=== PATIENT | female | born 1995 | race Caucasian/White ===

== ENCOUNTER 2016-11-21 11:48 | Outpatient (CLI) | payer MEDICAID | END 2016-11-21 11:49 | disposition home or self-care (01) | DX: Z34.02 Encounter for supervision of normal first pregnancy, second trimester (principal); Z36 Encounter for antenatal screening of mother ==

== ENCOUNTER 2016-11-27 14:39 | Outpatient (CLI) | payer MEDICAID | END 2016-11-27 14:40 | disposition home or self-care (01) | DX: Z34.02 Encounter for supervision of normal first pregnancy, second trimester (principal) ==

== ENCOUNTER 2016-12-31 17:43 | Observation (INO) | payer MEDICAID ==
[2016-12-31] MEDS ORDERED: TERBUTALINE 1 MG/ML VIAL SUBQ ONE (20:42)
[2016-12-31] MEDS ORDERED: SODIUM CHLORIDE FLUSH 0.9% 10 ML SYRINGE IVP ONE (20:56)
[2016-12-31] MEDS ORDERED: NIFEdipine 10 MG CAPSULE PO ONE (21:29)
[2016-12-31] MEDS ORDERED: NIFEdipine 10 MG CAPSULE PO SCH (21:30)
[2016-12-31] MEDS ORDERED: TERBUTALINE 1 MG/ML VIAL SUBQ SCH (23:00)
[2016-12-31] MEDS ORDERED: LACTATED RINGERS 1,000 ML IV SCH (23:00)
== END 2016-12-31 23:10 | disposition home or self-care (01) ==
DX: O47.03 False labor before 37 completed weeks of gestation, third trimester (principal); Z3A.32 32 weeks gestation of pregnancy; O99.89 Other specified diseases and conditions complicating pregnancy, childbirth and the puerperium; R10.811 Right upper quadrant abdominal tenderness; H53.8 Other visual disturbances; R03.0 Elevated blood-pressure reading, without diagnosis of hypertension; R51 Headache
CPT/HCPCS: 36415; 81001; 82570; 82731; 83615; 84156; 84450; 84550; 85025; 87086; 96372; 99213; A9270

== ENCOUNTER 2017-01-02 16:38 | Outpatient (CLI) | payer MEDICAID | END 2017-01-02 17:45 | disposition home or self-care (01) | DX: O23.43 Unspecified infection of urinary tract in pregnancy, third trimester (principal); Z3A.33 33 weeks gestation of pregnancy ==

== ENCOUNTER 2017-01-03 10:53 | Outpatient (CLI) | payer MEDICAID | END 2017-01-03 10:54 | DX: R30.0 Dysuria (principal) ==

== ENCOUNTER 2017-01-31 09:25 | Outpatient (CLI) | payer MEDICAID | END 2017-01-31 09:26 | DX: Z36 Encounter for antenatal screening of mother (principal) ==

== ENCOUNTER 2017-02-09 18:08 | Outpatient (CLI) | payer MEDICAID ==
[2017-02-13] MEDS ORDERED: SODIUM CHLORIDE FLUSH 0.9% 10 ML SYRINGE IVP PRN (15:56)
[2017-02-13] MEDS ORDERED: LACTATED RINGERS 1,000 ML IV SCH (16:00)
[2017-02-13] MEDS ORDERED: DINOPROSTONE 10 MG SUPP VG SCH (16:30)
== END 2017-02-09 21:15 | disposition home or self-care (01) ==
DX: Z34.83 Encounter for supervision of other normal pregnancy, third trimester (principal)

== ENCOUNTER 2017-02-13 16:16 | Observation (INO) | payer MEDICAID ==
[2017-02-13] MEDS ORDERED: DINOPROSTONE 10 MG SUPP VG SCH (16:44)
[2017-02-13] MEDS ORDERED: ZOLPIDEM 5 MG TABLET PO PRN (17:37)
[2017-02-13] MEDS ORDERED: SODIUM CHLORIDE FLUSH 0.9% 10 ML SYRINGE IVP PRN (17:41)
[2017-02-13] MEDS ORDERED: LACTATED RINGERS 1,000 ML IV SCH (18:00)
[2017-02-13] MEDS ORDERED: SODIUM CHLORIDE FLUSH 0.9% 10 ML SYRINGE IVP SCH (22:00)
== END 2017-02-14 08:10 | disposition home or self-care (01) ==
PROC: 3E0P7GC Introduction of Other Therapeutic Substance into Female Reproductive, Via Natural or Artificial Opening (ICD-10-PCS; principal; 2017-02-13)
DX: O13.3 Gestational [pregnancy-induced] hypertension without significant proteinuria, third trimester (principal); O36.8130 Decreased fetal movements, third trimester, not applicable or unspecified; Z3A.38 38 weeks gestation of pregnancy; Z87.891 Personal history of nicotine dependence
CPT/HCPCS: 59025; 59200; 82565; 83615; 84450; 84550; 85025; 87797; A9270; G0378

== ENCOUNTER 2017-02-14 15:29 | Outpatient (CLI) | payer MEDICAID | END 2017-02-14 17:00 | disposition home or self-care (01) | DX: O36.8130 Decreased fetal movements, third trimester, not applicable or unspecified (principal); O13.3 Gestational [pregnancy-induced] hypertension without significant proteinuria, third trimester; Z3A.38 38 weeks gestation of pregnancy ==

== ENCOUNTER 2017-02-16 10:01 | Outpatient (CLI) | payer MEDICAID | END 2017-02-16 11:25 | disposition home or self-care (01) | DX: O13.3 Gestational [pregnancy-induced] hypertension without significant proteinuria, third trimester (principal); Z3A.39 39 weeks gestation of pregnancy ==

== ENCOUNTER 2017-02-17 15:14 | Outpatient (CLI) | payer MEDICAID | END 2017-02-17 16:45 | disposition home or self-care (01) | DX: O98.813 Other maternal infectious and parasitic diseases complicating pregnancy, third trimester (principal); O47.1 False labor at or after 37 completed weeks of gestation; Z3A.39 39 weeks gestation of pregnancy; B37.9 Candidiasis, unspecified ==

== ENCOUNTER 2017-02-18 10:29 | Inpatient (IN) | payer MEDICAID ==
[2017-02-18] MEDS ORDERED: SODIUM CHLORIDE FLUSH 0.9% 10 ML SYRINGE IVP PRN (14:06)
[2017-02-18] MEDS ORDERED: fentaNYL 100 MCG/2 ML VIAL ONE (14:32)
[2017-02-18] MEDS ORDERED: fent/BUPIV 2 MCG/0.125% 250 ML EP ONE (14:33)
[2017-02-18] MEDS: LACTATED RINGERS 1,000 ML IV SCH ×2 (14:42→17:10)
[2017-02-18] MEDS ORDERED: ACETAMINOPHEN 325 MG TABLET PO SCH (15:00)
[2017-02-18] MEDS ORDERED: MEASLES,MUMPS & RUBELLA VACC 0.5 ML VIAL SUBQ ONE (15:29)
[2017-02-18] MEDS ORDERED: fentaNYL 100 MCG/2 ML VIAL IVP ONE (15:35)
[2017-02-18] MEDS ORDERED: ROPIVACAINE 0.5% PF 20 ML AMPULE EP ONE (15:35)
[2017-02-18] MEDS ORDERED: NALBUPHINE 20 MG/ML AMP IVP PRN (15:39)
[2017-02-18] MEDS ORDERED: diphenhydrAMINE INJ 50 MG/ML VIAL IVP PRN (15:39)
[2017-02-18] MEDS ORDERED: NALOXONE 0.4 MG/ML VIAL IVP PRN (15:39)
[2017-02-18] MEDS ORDERED: ePHEDrine 50 MG/ML AMP IVP PRN (15:39)
[2017-02-18] MEDS ORDERED: LACTATED RINGERS 500 ML IV ONE (15:39)
[2017-02-18] MEDS ORDERED: ONDANSETRON 4 MG/2 ML VIAL IVP PRN (15:39)
[2017-02-18] MEDS ORDERED: METOCLOPRAMIDE 10 MG/2 ML VIAL IVP PRN (15:39)
[2017-02-18] MEDS ORDERED: fent/BUPIV 2 MCG/0.125% 250 ML EP PRN (15:39)
[2017-02-18] MEDS ORDERED: OXYTOCIN/LACTATED RINGERS 250 ML IV ONE ×2 (17:27→19:09)
[2017-02-18] MEDS ORDERED: LIDOCAINE 1% 50 ML MDV ONE (17:27)
[2017-02-18] MEDS ORDERED: miSOPROStol 100 MCG TABLET ONE (18:13)
[2017-02-18] MEDS ORDERED: OXYTOCIN/LACTATED RINGERS 250 ML IV SCH ×2 (18:25→19:33)
[2017-02-18] MEDS ORDERED: HYDROcod/ACETAM 5/325 MG TABLET PO PRN (19:10)
[2017-02-18] MEDS ORDERED: WITCH HAZEL/GLYCERIN 1 EACH MED..PAD TOP PRN (19:10)
[2017-02-18] MEDS ORDERED: HYDROCORTISONE/PRAMOXINE 10 GM PR PRN (19:10)
[2017-02-18] MEDS: CELECOXIB 100 MG CAPSULE PO SCH (20:39)
[2017-02-18] MEDS: DOCUSATE SODIUM 100 MG CAPSULE PO SCH (20:46)
[2017-02-18] MEDS ORDERED: SODIUM CHLORIDE FLUSH 0.9% 10 ML SYRINGE IVP SCH (22:00)
[2017-02-19] MEDS: DOCUSATE SODIUM 100 MG CAPSULE PO SCH (10:52)
[2017-02-19] MEDS: CELECOXIB 100 MG CAPSULE PO SCH (10:52)
== END 2017-02-20 10:25 | disposition home or self-care (01) | DRG 982 ==
PROC: 10E0XZZ Delivery of Products of Conception, External Approach (ICD-10-PCS; principal; 2017-02-18)
PROC: 0HBAXZZ Excision of Inguinal Skin, External Approach (ICD-10-PCS; 2017-02-18)
PROC: 0KQM0ZZ Repair Perineum Muscle, Open Approach (ICD-10-PCS; 2017-02-18)
DX: O99.344 Other mental disorders complicating childbirth (principal); O72.1 Other immediate postpartum hemorrhage; F41.9 Anxiety disorder, unspecified; O69.81X0 Labor and delivery complicated by cord around neck, without compression, not applicable or unspecified; O36.5930 Maternal care for other known or suspected poor fetal growth, third trimester, not applicable or unspecified; O70.1 Second degree perineal laceration during delivery; D22.5 Melanocytic nevi of trunk; Z87.891 Personal history of nicotine dependence; Z86.19 Personal history of other infectious and parasitic diseases; Z3A.39 39 weeks gestation of pregnancy; Z37.0 Single live birth; Z98.890 Other specified postprocedural states

== ENCOUNTER 2017-07-09 10:17 | Outpatient (CLI) | payer MEDICAID | END 2017-07-09 10:18 | disposition home or self-care (01) | LOC: LAB.R 10:17 | PROVIDERS: ATTEND Registered Nurse | DX: Z30.431 Encounter for routine checking of intrauterine contraceptive device (principal) | CPT/HCPCS: 87491; 87591 ==

== ENCOUNTER 2017-11-12 08:00 | Outpatient (CLI) | payer OTHER, MEDICAID | END 2017-11-12 08:01 | disposition home or self-care (01) | LOC: LAB.WCP 08:00 | PROVIDERS: ATTEND Family Medicine | DX: N39.0 Urinary tract infection, site not specified (principal) | CPT/HCPCS: 87086 ==

== ENCOUNTER 2018-03-01 08:43 | Outpatient (CLI) | payer MEDICAID ==
[2018-03-01 13:00] LABS: BASOPHILS % (AUTO) 0.3 %; EOSINOPHILS # (AUTO) 0.1 10^3/uL (0.0-0.7); EOSINOPHILS % (AUTO) 2.2 %; HGB - HEMOGLOBIN 14.1 g/dL (12.0-16.0); LYMPHOCYTES # (AUTO) 1.4 10^3/uL (1.5-3.5); LYMPHOCYTES % (AUTO) 33.7 %; MEAN CORPUSCULAR HEMOGLOBIN 31.2 pg (27.0-31.0); MEAN CORPUSCULAR HGB CONC 34.2 g/dL (32.0-36.0); MEAN CORPUSCULAR VOLUME 91.3 fL (81.0-99.0); MEAN PLATELET VOLUME 8.1 fL (7.9-10.8); MONOCYTES # (AUTO) 0.5 10^3/uL (0.0-1.0); MONOCYTES % (AUTO) 11.4 %; NEUTROPHILS # (AUTO) 2.2 10^3/uL (1.5-6.6); NEUTROPHILS % (AUTO) 52.4 %; PLT - PLATELET COUNT 256 10^3/uL (130-450); RED BLOOD COUNT 4.52 10^6/uL (4.20-5.40); RED CELL DISTRIBUTION WIDTH 13.3 % (12.0-15.0); WHITE BLOOD COUNT 4.2 x10^3/uL (4.8-10.8)
[2018-03-01 13:30] LABS: ALBUMIN 3.9 g/dL (3.2-5.5); ALBUMIN/GLOBULIN RATIO 1.2 (1.0-2.2); BILIRUBIN,TOTAL 0.8 mg/dL (0.2-1.0); CALCIUM 8.6 mg/dL (8.5-10.3); CREATININE 0.6 mg/dL (0.4-1.0); TOTAL PROTEIN 7.2 g/dL (6.7-8.2)
== END 2018-03-01 08:44 | disposition home or self-care (01) ==
LOC: LAB.WCP 08:43
PROVIDERS: ATTEND Family Medicine
DX: K52.9 Noninfective gastroenteritis and colitis, unspecified (principal)
CPT/HCPCS: 36415; 80053; 85025

== ENCOUNTER 2018-03-01 09:00 | Outpatient (CLI) | payer MEDICAID | END 2018-03-01 09:01 | disposition home or self-care (01) | LOC: LAB.R 09:00 | PROVIDERS: ATTEND Family Medicine | DX: K52.9 Noninfective gastroenteritis and colitis, unspecified (principal) | CPT/HCPCS: 36415; 80053; 85025; 87015; 87045; 87046; 87177; 87209; 87272; 87329 ==

== ENCOUNTER 2018-05-13 05:04 | Emergency (ER) | payer MEDICAID ==
[2018-05-13] MEDS ORDERED: SODIUM CHLORIDE 0.9% 1,000 ML IV ONE (05:18)
[2018-05-13] MEDS ORDERED: ONDANSETRON 4 MG/2 ML VIAL IVP STA (05:35)
--- NOTE | 2018-05-13 05:38 | ED Physician Documentation ---
History of Present Illness - Stated complaint Stated Complaint: DIZZINESS,NAUSEA - Chief complaint Chief Complaint: Neuro - History obtained from History obtained from: Patient - Additonal information Additional information: 22-year-old female presents the emergency department with dizziness, syncope, nausea and right upper quadrant pain. The patient awoke this morning around midnight feeling very dizzy and nauseated and when walking to the bathroom had a syncopal episode. The patient denies chest pain before or after the event. The patient denies fevers, dyspnea on exertion. Now currently the patient has right upper quadrant pain which started 1 hour ago. There is no radiation of the pain. No triggering factors. No relieving factors. No other associated symptoms. Review of Systems Constitutional: reports: Chills. denies: Fever, Fatigue Eyes: denies: Discharge Ears: denies: Ear pain Nose: denies: Congestion Throat: denies: Sore throat Cardiac: denies: Chest pain / pressure, Palpitations, Pedal edema Respiratory: denies: Dyspnea GI: reports: Abdominal Pain, Nausea : denies: Dysuria Musculoskeletal: denies: Neck pain Neurologic: reports: Generalized weakness, Syncope. 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 - Present Medications Home Medications: Ambulatory Orders Medication Instructions Recorded Confirmed Sertraline [Zoloft] 125 mg PO DAILY 05/13/18 05/13/18 buPROPion [Wellbutrin Xl] 05/13/18 - Allergies Allergies/Adverse Reactions: Allergies Allergy/AdvReac Type Severity Reaction Status Date / Time ondansetron [From Zofran] Allergy Emesis Verified 05/13/18 05:43 control pills Allergy Headache Uncoded 05/13/18 05:14 - Social History Does the pt smoke?: No Smoking Status: Never smoker Does the pt drink ETOH?: Yes Does the pt have substance abuse?: No - Immunizations Immunizations are current?: Yes - POLST Patient has POLST: No PD ED PE NORMAL - General General: Alert and oriented X 3, No acute distress - HEENT HEENT: Atraumatic, PERRL, EOMI - Neck Neck: Supple, no meningeal sign - Cardiac Cardiac: RRR - Respiratory Respiratory: No respiratory distress, Clear bilaterally - Abdomen Abdomen: Soft, Non distended. No: Non tender (The patient is tender to palpation in the right upper quadrant, no rebound or peritoneal signs) - Derm Derm: Normal color - Neuro Neuro: Alert and oriented X 3, Normal speech - Psych Psych: Normal mood Results - Vitals Vitals: Vital Signs - 24 hr 05/13/18 05:11 Temperature 36.4 C L Heart Rate 105 H Respiratory 18 Rate Blood Pressure 132/91 H O2 Saturation 98 Oxygen O2 Source Room air - EKG (time done) 05:36 Rate: Rate (enter#) Rhythm: NSR Intervals: Normal FL, QRS normal Ischemia: Normal ST segments - Labs Labs: Laboratory Tests 05/13/18 05/13/18 05/13/18 05:16 05:28 05:41 WBC 6.8 RBC 4.53 Hgb 14.4 Hct 41.3 MCV 91.0 MCH 31.8 H MCHC 34.9 RDW 13.2 Plt Count 299 MPV 7.4 L Neut # (Auto) 4.4 Lymph # (Auto) 1.7 [place] # (Auto) 0.5 Eos # (Auto) 0.1 Baso # (Auto) 0.0 Absolute Nucleated RBC 0.00 Nucleated RBC % 0.0 Sodium Potassium Chloride Carbon Dioxide Anion Gap BUN Creatinine Estimated GFR (MDRD) Glucose POC Whole Bld Glucose 133 H Calcium Magnesium Total Bilirubin AST ALT Alkaline Phosphatase Total Protein Albumin Globulin Albumin/Globulin Ratio Lipase Serum HCG, Qual Urine Color YELLOW Urine Clarity CLEAR Urine pH 6.0 Ur Specific [place] >=1.030 H Urine Protein NEGATIVE Urine Glucose (UA) NEGATIVE Urine Ketones NEGATIVE Urine Occult Blood LARGE H Urine Nitrite NEGATIVE Urine Bilirubin NEGATIVE Urine Urobilinogen 0.2 (NORMAL) Ur Leukocyte Esterase NEGATIVE Urine RBC 0-5 Urine WBC 0-3 Ur Squamous Epith Cells MANY Squamous H Urine Bacteria None Seen Urine Mucus Few Strands Ur Microscopic Review INDICATED Urine Culture Comments NOT INDICATED 05/13/18 05/13/18 05:41 05:41 WBC RBC Hgb Hct MCV MCH MCHC RDW Plt Count MPV Neut # (Auto) Lymph # (Auto) [place] # (Auto) Eos # (Auto) Baso # (Auto) Absolute Nucleated RBC Nucleated RBC % Sodium 137 Potassium 3.8 Chloride 108 Carbon Dioxide 19 L Anion Gap 10.0 BUN 14 Creatinine 0.6 Estimated GFR (MDRD) 124 Glucose 133 H POC Whole Bld Glucose Calcium 9.0 Magnesium 2.2 Total Bilirubin 0.9 AST 21 ALT 22 Alkaline Phosphatase 112 Total Protein 8.1 Albumin 4.4 Globulin 3.7 Albumin/Globulin Ratio 1.2 Lipase 37 Serum HCG, Qual NEGATIVE Urine Color Urine Clarity Urine pH Ur Specific [place] Urine Protein Urine Glucose (UA) Urine Ketones Urine Occult Blood Urine Nitrite Urine Bilirubin Urine Urobilinogen Ur Leukocyte Esterase Urine RBC Urine WBC Ur Squamous Epith Cells Urine Bacteria Urine Mucus Ur Microscopic Review Urine Culture Comments PD MEDICAL DECISION MAKING - ED course ED course: 06:30 AM On reevaluation the patient was resting comfortably, the patient still was reporting right upper quadrant pain and nausea. 07:00 AM The patient's care was turned over to the oncoming emergency physician Dr. Hinton to follow-up on the CT scan findings, reevaluation and final disposition of the patient. - Sepsis Event Vital Signs: Vital Signs - 24 hr 05/13/18 05:11 Temperature 36.4 C L Heart Rate 105 H Respiratory 18 Rate Blood Pressure 132/91 H O2 Saturation 98 Oxygen O2 Source Room air Departure - Departure Clinical Impression: Dizziness of unknown cause Abdominal pain Qualifiers: Abdominal location: unspecified location Qualified Code(s): R10.9 - Unspecified abdominal pain Syncope Qualifiers: Syncope type: unspecified Qualified Code(s): R55 - Syncope and collapse
[2018-05-13 05:39] LABS: BILIRUBIN,URINE NEGATIVE (NEGATIVE); GLUCOSE, URINE (UA) NEGATIVE (NEGATIVE); KETONES,URINE (UA) NEGATIVE (NEGATIVE); LEUKOCYTE ESTERASE, URINE NEGATIVE (NEGATIVE); NITRITE,URINE NEGATIVE (NEGATIVE); OCCULT BLOOD,URINE LARGE (NEGATIVE); PROTEIN,URINE NEGATIVE (NEGATIVE); UROBILINOGEN,URINE 0.2 (NORMAL) E.U./dL (NORMAL)
[2018-05-13 05:45] LABS: BACTERIA,URINE None Seen /HPF (None Seen); CLARITY,URINE CLEAR (CLEAR); MUCUS,URINE Few Strands; RBC,URINE 0-5 /HPF (0-5); SQUAMOUS EPITHELIAL CELL,UR MANY Squamous (<= Few)
[2018-05-13] MEDS ORDERED: PROMETHAZINE INJ 25 MG in SODIUM CHLORIDE 0.9% 50 ML IV STA (05:46)
[2018-05-13 05:57] LABS: BASOPHILS % (AUTO) 0.6 %; EOSINOPHILS # (AUTO) 0.1 10^3/uL (0.0-0.7); EOSINOPHILS % (AUTO) 1.8 %; HGB - HEMOGLOBIN 14.4 g/dL (12.0-16.0); LYMPHOCYTES # (AUTO) 1.7 10^3/uL (1.5-3.5); LYMPHOCYTES % (AUTO) 25.7 %; MEAN CORPUSCULAR HEMOGLOBIN 31.8 pg (27.0-31.0); MEAN CORPUSCULAR HGB CONC 34.9 g/dL (32.0-36.0); MEAN PLATELET VOLUME 7.4 fL (7.9-10.8); MONOCYTES # (AUTO) 0.5 10^3/uL (0.0-1.0); NEUTROPHILS # (AUTO) 4.4 10^3/uL (1.5-6.6); NEUTROPHILS % (AUTO) 64.9 %; PLT - PLATELET COUNT 299 10^3/uL (130-450); RED BLOOD COUNT 4.53 10^6/uL (4.20-5.40); RED CELL DISTRIBUTION WIDTH 13.2 % (12.0-15.0); WHITE BLOOD COUNT 6.8 x10^3/uL (4.8-10.8)
[2018-05-13 06:04] LABS: ALBUMIN 4.4 g/dL (3.2-5.5); ALBUMIN/GLOBULIN RATIO 1.2 (1.0-2.2); BILIRUBIN,TOTAL 0.9 mg/dL (0.2-1.0); CREATININE 0.6 mg/dL (0.4-1.0); MAGNESIUM 2.2 mg/dL (1.7-2.8); TOTAL PROTEIN 8.1 g/dL (6.7-8.2)
[2018-05-13 06:22] LABS: HCG,QUALITATIVE BLOOD NEGATIVE
[2018-05-13] MEDS ORDERED: IOPAMIDOL-300 100 ML VIAL ONE (06:45)
[2018-05-13] MEDS ORDERED: IOPAMIDOL-300 50 ML VIAL ONE (06:45)
[2018-05-13] MEDS ORDERED: KETOROLAC 15 MG/ML VIAL IVP STA (07:14)
[2018-05-13] MEDS ORDERED: MECLIZINE 12.5 MG TABLET PO STA (07:14)
[2018-05-13 07:34] VITALS: BP 118/77
[2018-05-13] MEDS ORDERED: IOPAMIDOL-300 100 ML VIAL IVP ONE (07:51)
[2018-05-13] MEDS ORDERED: IOPAMIDOL-300 50 ML VIAL PO ONE (07:51)
--- NOTE | 2018-05-13 08:16 | CT Report ---
Procedure Date: 05/13/2018 Accession Number: [id number] / [id number] Procedure: CT - Abdomen/Pelvis W/ CPT Code: FULL RESULT: EXAM: CT ABDOMEN AND PELVIS EXAM DATE: 05/13/2018 08:02 AM. CLINICAL HISTORY: Abdominal Pain. COMPARISONS: None. TECHNIQUE: Routine helical CT imaging was performed through the abdomen and pelvis. IV contrast: ISOVUE 300 100mL. Enteric contrast: Yes. Reconstructions: Coronal and sagittal. In accordance with CT protocol optimization, one or more of the following dose reduction techniques were utilized for this exam: automated exposure control, adjustment of mA and/or KV based on patient size, or use of iterative reconstructive technique. FINDINGS: Lung Bases: Unremarkable. Liver: Diffusely decreased parenchymal attenuation; no focal lesion. The liver measures 20 cm in the craniocaudal dimension. Gallbladder/Bile Ducts: Unremarkable. Spleen: Normal. Pancreas: Normal. Adrenal Glands: Normal. Kidneys: Normal. No masses or hydronephrosis. Peritoneal Cavity/Bowel: No ascites or pneumoperitoneum. No bowel obstruction or abnormal stool burden. There appears to be mild diffuse wall thickening of the transverse colon and proximal descending colon; the colon is normal in caliber. The appendix is well visualized and normal. Pelvic Organs: Intrauterine device in place. The bladder and visualized pelvic organs are within normal limits. Vasculature: Normal. Bones: No significant abnormality. Other: None. IMPRESSION: 1. Findings suggest mild colitis, primarily involving the transverse colon and proximal descending colon. 2. Hepatic steatosis and hepatomegaly. RADIA
--- NOTE | 2018-05-13 08:50 | ED Physician Documentation ---
ED Addendum - Addendum Addendum: 05/13/18 08:48 Patient seen on shift change in his pending CT scan. She states she has still some nausea and some vertigo type dizziness. She has upper abdominal pain which is a little bit less but still moderate. She is given some meclizine and Toradol to help with the symptoms. She then went to CT scan with the results showing some transverse colitis. On repeat history she says she has had diarrhea for the last week and yesterday went about 20 times without any noted mucus or blood. She denies any camping, recent antibiotics, unusual foods, nor history of Crohn's disease or colitis. She does not feel she needs to have a bowel movement at this time. Will treat her with symptom medicines for pain and nausea. We can try empiric treatment for colitis with Flagyl and to see if she has persistent symptoms, then to bring a stool sample to her primary care. Repeat abdominal exam is without any peritoneal or concerning signs. The patient does seem stable for discharge. I answered questions that she had. Disposition: discharge home Diagnoses: upper abdominal pain Transverse colitis acute diarrhea 05/13/18 08:50
== END 2018-05-13 09:11 | disposition home or self-care (01) ==
LOC: ED 05:04
DX: R42 Dizziness and giddiness (principal); R55 Syncope and collapse; K52.9 Noninfective gastroenteritis and colitis, unspecified; K76.0 Fatty (change of) liver, not elsewhere classified
CPT/HCPCS: 36415; 74177; 80053; 81001; 83690; 83735; 84703; 85025; 93005; 96365; 96375; 99283; A9270; J7040; Q9967; 81003; 87086

== ENCOUNTER 2018-06-13 15:16 | Outpatient (CLI) | payer MEDICAID | END 2018-06-13 15:17 | LOC: LAB.R 15:16 | PROVIDERS: ATTEND Family Medicine | DX: R19.7 Diarrhea, unspecified (principal) | CPT/HCPCS: 87493 ==

== ENCOUNTER → 2018-08-20 | Outpatient (CLI) | payer MEDICAID ==
[2018-08-20 14:25] LABS: BASOPHILS % (AUTO) 0.6 %; EOSINOPHILS # (AUTO) 0.2 10^3/uL (0.0-0.7); EOSINOPHILS % (AUTO) 3.3 %; HGB - HEMOGLOBIN 13.9 g/dL (12.0-16.0); LYMPHOCYTES # (AUTO) 1.7 10^3/uL (1.5-3.5); LYMPHOCYTES % (AUTO) 24.6 %; MEAN CORPUSCULAR HEMOGLOBIN 31.7 pg (27.0-31.0); MEAN CORPUSCULAR HGB CONC 34.5 g/dL (32.0-36.0); MEAN CORPUSCULAR VOLUME 91.9 fL (81.0-99.0); MEAN PLATELET VOLUME 7.6 fL (7.9-10.8); MONOCYTES # (AUTO) 0.5 10^3/uL (0.0-1.0); MONOCYTES % (AUTO) 7.1 %; NEUTROPHILS # (AUTO) 4.4 10^3/uL (1.5-6.6); NEUTROPHILS % (AUTO) 64.4 %; PLT - PLATELET COUNT 312 10^3/uL (130-450); RED BLOOD COUNT 4.39 10^6/uL (4.20-5.40); RED CELL DISTRIBUTION WIDTH 13.3 % (12.0-15.0); WHITE BLOOD COUNT 6.9 x10^3/uL (4.8-10.8)
[2018-08-20 15:28] LABS: ALBUMIN/GLOBULIN RATIO 1.2 (1.0-2.2); BILIRUBIN,TOTAL 0.6 mg/dL (0.2-1.0); CALCIUM 8.6 mg/dL (8.5-10.3); CREATININE 0.5 mg/dL (0.4-1.0); TOTAL PROTEIN 7.4 g/dL (6.7-8.2)
== END ==
LOC: LAB.WCP 08:00
PROVIDERS: ATTEND Nurse Practitioner
DX: R10.11 Right upper quadrant pain (principal)
CPT/HCPCS: 36415; 80053; 85025

== ENCOUNTER 2018-08-21 17:40 | Outpatient (CLI) | payer MEDICAID ==
--- NOTE | 2018-08-22 06:48 | Ultrasound Report ---
Reason: RIGHT UPPER QUADRANT PAIN Procedure Date: 08/21/2018 Accession Number: [id number] / [id number] Procedure: US - Abdomen Limited CPT Code: FULL RESULT: EXAM: ABDOMEN ULTRASOUND LIMITED, RUQ EXAM DATE: 08/21/2018 06:26 PM. CLINICAL HISTORY: RIGHT UPPER QUADRANT PAIN. COMPARISON: ABDOMEN/PELVIS W/ 05/13/2018 7:55 AM. TECHNIQUE: Real-time scanning was performed with static images obtained. FINDINGS: Liver: Echogenic without gross focal abnormality seen. Note of fatty sparing in the gallbladder fossa region. Main portal vein flow: Hepatopetal. Gallbladder: Normal. No stones, wall thickening, or sonographic Germain's sign. Biliary System: CBD measures 3 mm. No intrahepatic or extrahepatic ductal dilatation. Other: No right hydronephrosis. IMPRESSION: 1. Gallbladder appears normal. 2. Fatty liver. RADIA
== END 2018-08-21 17:41 | disposition home or self-care (01) ==
LOC: DI 17:40
PROVIDERS: ATTEND Nurse Practitioner
DX: R10.11 Right upper quadrant pain (principal); K76.0 Fatty (change of) liver, not elsewhere classified
CPT/HCPCS: 76705

== ENCOUNTER 2018-10-07 08:52 | Day surgery (SDC) | payer MEDICAID ==
[~2018-10-07 08:52] MED LIST: LIDO GARGLE 30 ML BOTTLE ONE
[2018-10-07] MEDS ORDERED: LACTATED RINGERS 1,000 ML IV ONE ×2 (08:58→11:06)
[2018-10-07] MEDS ORDERED: MIDAZOLAM 2 MG/2 ML VIAL IVP ONE (10:34)
[2018-10-07] MEDS ORDERED: fentaNYL 250 MCG/5 ML VIAL IVP ONE (10:34)
[2018-10-07] MEDS ORDERED: LIDO GARGLE 30 ML BOTTLE PO ONE (10:45)
[2018-10-07] MEDS ORDERED: BENZOCAINE/TETRACAINE/BUTAMBEN 20 GM TOP ONE (10:45)
[2018-10-07 11:48] VITALS: BP 98/66
== END 2018-10-07 08:53 | disposition home or self-care (01) ==
LOC: SDS 08:52
PROVIDERS: ATTEND Surgery
PROC: 0DB38ZX Excision of Lower Esophagus, Via Natural or Artificial Opening Endoscopic, Diagnostic (ICD-10-PCS; 2018-10-07)
PROC: 0DBK8ZX Excision of Ascending Colon, Via Natural or Artificial Opening Endoscopic, Diagnostic (ICD-10-PCS; 2018-10-07)
PROC: 0DB98ZX Excision of Duodenum, Via Natural or Artificial Opening Endoscopic, Diagnostic (ICD-10-PCS; principal; 2018-10-07 10:15)
PROC: 0DB68ZX Excision of Stomach, Via Natural or Artificial Opening Endoscopic, Diagnostic (ICD-10-PCS; 2018-10-07 10:15)
DX: K21.0 Gastro-esophageal reflux disease with esophagitis (principal); K25.9 Gastric ulcer, unspecified as acute or chronic, without hemorrhage or perforation; D12.2 Benign neoplasm of ascending colon; K29.80 Duodenitis without bleeding; K52.9 Noninfective gastroenteritis and colitis, unspecified; J45.909 Unspecified asthma, uncomplicated; F90.0 Attention-deficit hyperactivity disorder, predominantly inattentive type; F41.0 Panic disorder [episodic paroxysmal anxiety]; F32.9 Major depressive disorder, single episode, unspecified; E66.9 Obesity, unspecified; F40.240 Claustrophobia; Z79.51 Long term (current) use of inhaled steroids; Z87.891 Personal history of nicotine dependence
CPT/HCPCS: 43239; 45380; 87081; A9270; J3010; J7120

== ENCOUNTER 2018-11-04 07:17 | Day surgery (SDC) | payer MEDICAID ==
[2018-11-04] MEDS ORDERED: LACTATED RINGERS 1,000 ML IV ONE (07:32)
[2018-11-04 08:10] LABS: HCG UR QUAL NEGATIVE
[2018-11-04] MEDS ORDERED: LIDO GARGLE 30 ML BOTTLE ONE (08:54)
[2018-11-04] MEDS ORDERED: MIDAZOLAM 2 MG/2 ML VIAL IVP ONE (08:58)
[2018-11-04] MEDS ORDERED: fentaNYL 100 MCG/2 ML VIAL IVP ONE (08:58)
[2018-11-04] MEDS ORDERED: BENZOCAINE/TETRACAINE/BUTAMBEN 20 GM TOP ONE (09:04)
[2018-11-04 09:44] VITALS: BP 117/86
== END 2018-11-04 07:18 | disposition home or self-care (01) ==
LOC: SDS 07:17
PROVIDERS: ATTEND Surgery
PROC: 0DB78ZX Excision of Stomach, Pylorus, Via Natural or Artificial Opening Endoscopic, Diagnostic (ICD-10-PCS; principal; 2018-11-04 09:00)
DX: Z09 Encounter for follow-up examination after completed treatment for conditions other than malignant neoplasm (principal); Z87.11 Personal history of peptic ulcer disease; J45.909 Unspecified asthma, uncomplicated; F32.9 Major depressive disorder, single episode, unspecified; F41.0 Panic disorder [episodic paroxysmal anxiety]; F40.240 Claustrophobia; E66.9 Obesity, unspecified; Z68.38 Body mass index [BMI] 38.0-38.9, adult; Z87.891 Personal history of nicotine dependence; Z72.89 Other problems related to lifestyle
CPT/HCPCS: 43239; 81025; 87081; A9270; J7120

== ENCOUNTER 2019-01-15 11:53 | Emergency (ER) | payer MEDICAID ==
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
[2019-01-15] MEDS ORDERED: KETOROLAC 60 MG/2 ML VIAL IM STA (12:23)
[2019-01-15 12:50] LABS: BILIRUBIN,URINE NEGATIVE (NEGATIVE); GLUCOSE, URINE (UA) NEGATIVE (NEGATIVE); KETONES,URINE (UA) NEGATIVE (NEGATIVE); LEUKOCYTE ESTERASE, URINE TRACE (NEGATIVE); NITRITE,URINE NEGATIVE (NEGATIVE); OCCULT BLOOD,URINE NEGATIVE (NEGATIVE); PROTEIN,URINE NEGATIVE (NEGATIVE); UROBILINOGEN,URINE 0.2 (NORMAL) E.U./dL (NORMAL)
[2019-01-15 12:51] LABS: CLARITY,URINE HAZY (CLEAR); HCG UR QUAL NEGATIVE
[2019-01-15 12:56] LABS: BACTERIA,URINE Few /HPF (None Seen); RBC,URINE 0-5 /HPF (0-5); SQUAMOUS EPITHELIAL CELL,UR MOD Squamous (<= Few)
--- NOTE | 2019-01-15 14:22 | XRAY Report ---
Reason: blunt force to the coccyx Procedure Date: 01/15/2019 Accession Number: [id number] / [id number] Procedure: XR - Sacrum/Coccyx CPT Code: FULL RESULT: EXAM: SACRUM AND COCCYX RADIOGRAPHY EXAM DATE: 01/15/2019 01:08 PM. HISTORY: Blunt force to the coccyx. COMPARISONS: ABDOMEN/PELVIS W/ 05/13/2018 7:55 AM. TECHNIQUE: 2 views. FINDINGS: Alignment: Normal. The sacrum and coccyx are normally aligned. Bones: There is mild cortical irregularity about the distal S4/S5 vertebral bodies seen on the lateral view with no correlate seen on the CT 05/13/2018. No other evidence of fracture. Joints: Normal. The sacroiliac joints and visualized hips are within normal limits. Soft Tissues: Note is made of an intrauterine device projecting over the pelvis. IMPRESSION: Question distal sacral fracture. Recommend noncontrast CT pelvis for confirmation if clinically warranted. RADIA
[2019-01-15 15:31] VITALS: BP 130/70
== END 2019-01-15 14:30 | disposition home or self-care (01) ==
LOC: ED 11:53
DX: S32.10XA Unspecified fracture of sacrum, initial encounter for closed fracture (principal); W51.XXXA Accidental striking against or bumped into by another person, initial encounter
CPT/HCPCS: 72220; 81001; 81003; 81025; 87086; 96372; 99283

== ENCOUNTER 2019-03-08 10:25 | Emergency (ER) | payer MEDICAID ==
[2019-03-08 10:57] LABS: BASOPHILS % (AUTO) 0.5 %; EOSINOPHILS # (AUTO) 0.3 10^3/uL (0.0-0.7); EOSINOPHILS % (AUTO) 4.9 %; HGB - HEMOGLOBIN 14.1 g/dL (12.0-16.0); LYMPHOCYTES # (AUTO) 2.4 10^3/uL (1.5-3.5); LYMPHOCYTES % (AUTO) 35.1 %; MEAN CORPUSCULAR HEMOGLOBIN 30.9 pg (27.0-31.0); MEAN CORPUSCULAR HGB CONC 33.6 g/dL (32.0-36.0); MEAN PLATELET VOLUME 7.6 fL (7.9-10.8); MONOCYTES # (AUTO) 0.5 10^3/uL (0.0-1.0); MONOCYTES % (AUTO) 6.8 %; NEUTROPHILS # (AUTO) 3.5 10^3/uL (1.5-6.6); NEUTROPHILS % (AUTO) 52.7 %; PLT - PLATELET COUNT 305 10^3/uL (130-450); RED BLOOD COUNT 4.57 10^6/uL (4.20-5.40); RED CELL DISTRIBUTION WIDTH 13.1 % (12.0-15.0); WHITE BLOOD COUNT 6.7 x10^3/uL (4.8-10.8)
[2019-03-08 11:03] LABS: LEUKOCYTE ESTERASE, URINE NEGATIVE (NEGATIVE); NITRITE,URINE NEGATIVE (NEGATIVE)
[2019-03-08 11:04] LABS: BILIRUBIN,URINE NEGATIVE (NEGATIVE); GLUCOSE, URINE (UA) NEGATIVE (NEGATIVE); KETONES,URINE (UA) NEGATIVE (NEGATIVE); OCCULT BLOOD,URINE NEGATIVE (NEGATIVE); PROTEIN,URINE NEGATIVE (NEGATIVE); UROBILINOGEN,URINE 0.2 (NORMAL) E.U./dL (NORMAL)
[2019-03-08 11:05] LABS: CLARITY,URINE HAZY (CLEAR); HCG UR QUAL NEGATIVE
[2019-03-08 11:11] LABS: ALBUMIN 4.2 g/dL (3.2-5.5); ALBUMIN/GLOBULIN RATIO 1.1 (1.0-2.2); BILIRUBIN,TOTAL 0.7 mg/dL (0.2-1.0); CREATININE 0.7 mg/dL (0.4-1.0); TOTAL PROTEIN 7.9 g/dL (6.7-8.2)
[2019-03-08 11:12] LABS: BACTERIA,URINE Many /HPF (None Seen); RBC,URINE 0-5 /HPF (0-5); SQUAMOUS EPITHELIAL CELL,UR MANY Squamous (<= Few)
[2019-03-08 11:15] LABS: CALCIUM 9.1 mg/dL (8.5-10.3)
[2019-03-08] MEDS ORDERED: SODIUM CHLORIDE 0.9% 1,000 ML IV ONE (11:43)
[2019-03-08] MEDS ORDERED: PROMETHAZINE INJ 25 MG in SODIUM CHLORIDE 0.9% 50 ML IV STA (11:43)
--- NOTE | 2019-03-08 11:46 | ED Physician Documentation ---
PD HPI NVD - Stated complaint Stated Complaint: V/D/SYNCOPE - Chief complaint Chief Complaint: Abd Pain - History obtained from History obtained from: Patient - History of Present Illness Timing - onset: How many days ago (10) Timing - duration: Days (10) Timing - details: Gradual onset, Still present, Waxing and waning Associated symptoms: Abdominal pain. No: Fever, Chest pain, Hematemesis, Melena Contributing factors: No: Sick contact, Bad food, Recent antibiotics, Alcohol use Improved by: Vomiting Worsened by: Eating Similar symptoms before: Diagnosis (IBS) Recently seen: Not recently seen - Additonal information Additional information: 23-year-old female has developed nausea vomiting and diarrhea about 10 days ago this improved for several days and then recurred the patient is not been able to hold down water now. She has a prior history of episodes of nausea vomiting and diarrhea since childhood. She recently been diagnosed with irritable bowel syndrome. She is allergic to Zofran and she has been taking some promethazine and the promethazine has not been working. Review of Systems Constitutional: denies: Fever Eyes: denies: Decreased vision Ears: denies: Ear pain Nose: denies: Rhinorrhea / runny nose, Congestion Throat: denies: Sore throat Cardiac: denies: Chest pain / pressure, Palpitations Respiratory: denies: Dyspnea, Cough GI: reports: Abdominal Pain, Nausea, Vomiting, Diarrhea : denies: Dysuria, Frequency Skin: denies: Rash Musculoskeletal: denies: Neck pain, Back pain, Extremity pain Neurologic: denies: Generalized weakness, Focal weakness, Numbness PD PAST MEDICAL HISTORY - Past Medical History Past Medical History: Yes Cardiovascular: None Respiratory: None Endocrine/Autoimmune: None GI: Ulcers, Colon polyps : None HEENT: None Psych: Depression, Anxiety, Panic attacks Musculoskeletal: None Derm: None - Past Surgical History Past Surgical History: Yes 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, 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 - Present Medications Home Medications: Ambulatory Orders Medication Instructions Recorded Confirmed Sertraline HCl [Zoloft] 125 mg PO DAILY 11/01/18 03/08/19 Meloxicam [Mobic] 15 mg PO DAILY PRN #20 tablet 01/15/19 03/08/19 Propranolol [Inderal] 1 tab PO DAILY 01/15/19 03/08/19 traMADol [Ultram] 1 tab PO PRN PRN 01/15/19 03/08/19 Promethazine [Phenergan] 25 mg PO Q6H PRN #10 tab 03/08/19 buPROPion [Wellbutrin Xl] 150 mg PO DAILY 03/08/19 03/08/19 - Allergies Allergies/Adverse Reactions: Allergies Allergy/AdvReac Type Severity Reaction Status Date / Time ondansetron [From Zofran] Allergy Intermediate Emesis Verified 03/08/19 10:31 oxycodone [From Percocet] Allergy Emesis Verified 03/08/19 10:31 control pills Allergy Headache Uncoded 03/08/19 10:31 - Social History Does the pt smoke?: No Smoking Status: Never smoker Does the pt drink ETOH?: Yes Does the pt have substance abuse?: No - Immunizations Immunizations are current?: Yes - POLST Patient has POLST: No PD ED PE NORMAL - Vitals Vital signs reviewed: Yes (hypertensive mild ) - General General: Alert and oriented X 3, No acute distress, Well developed/nourished - HEENT HEENT: Atraumatic, PERRL, EOMI - Neck Neck: Supple, no meningeal sign, No bony TTP - Cardiac Cardiac: RRR, No murmur - Respiratory Respiratory: No respiratory distress, Clear bilaterally - Abdomen Abdomen: Soft, Non tender - Back Back: No CVA TTP, No spinal TTP - Derm Derm: Normal color, Warm and dry, No rash - Extremities Extremities: No deformity, No edema - Neuro Neuro: Alert and oriented X 3, spar cap beveler 2-12 intact, No motor deficit, No sensory deficit, Normal speech Eye Opening: Spontaneous Motor: Obeys Commands Verbal: Oriented GCS Score: 15 - Psych Psych: Normal mood Results - Vitals Vitals: Vital Signs - 24 hr 03/08/19 03/08/19 10:28 12:10 Temperature 35.6 C L 36.7 C Heart Rate 85 77 Respiratory 14 18 Rate Blood Pressure 126/82 H 107/78 O2 Saturation 98 100 Oxygen O2 Source Room air - Labs Labs: Laboratory Tests 03/08/19 03/08/19 03/08/19 10:53 10:53 10:53 WBC 6.7 RBC 4.57 Hgb 14.1 Hct 42.1 MCV 92.0 MCH 30.9 MCHC 33.6 RDW 13.1 Plt Count 305 MPV 7.6 L Neut # (Auto) 3.5 Lymph # (Auto) 2.4 [place] # (Auto) 0.5 Eos # (Auto) 0.3 Baso # (Auto) 0.0 Absolute Nucleated RBC 0.00 Nucleated RBC % 0.0 Sodium 139 Potassium 3.8 Chloride 106 Carbon Dioxide 20 L Anion Gap 13.0 BUN 15 Creatinine 0.7 Estimated GFR (MDRD) 103 Glucose 107 H Calcium 9.1 Total Bilirubin 0.7 AST 27 ALT 36 Alkaline Phosphatase 124 H Total Protein 7.9 Albumin 4.2 Globulin 3.7 Albumin/Globulin Ratio 1.1 Lipase 37 Urine Color YELLOW Urine Clarity HAZY Urine pH 5.0 Ur Specific [place] >=1.030 H Urine Protein NEGATIVE Urine Glucose (UA) NEGATIVE Urine Ketones NEGATIVE Urine Occult Blood NEGATIVE Urine Nitrite NEGATIVE Urine Bilirubin NEGATIVE Urine Urobilinogen 0.2 (NORMAL) Ur Leukocyte Esterase NEGATIVE Urine RBC 0-5 Urine WBC 4-5 Ur Squamous Epith Cells MANY Squamous H Urine Bacteria Many H Ur Microscopic Review INDICATED Urine Culture Comments NOT INDICATED Urine HCG, Qual NEGATIVE PD MEDICAL DECISION MAKING - ED course Complexity details: reviewed results, re-evaluated patient, considered differential, d/w patient, d/w family ED course: 23-year-old female with a history of irritable bowel syndrome and episodes of vomiting and diarrhea has an episode of vomiting diarrhea that is lasted longer than usual and she is become dehydrated. She is administered saline here in the emergency department as well as intravenous Phenergan with some improvement in her symptoms. She does have Phenergan and Imodium at home she is almost out of her Phenergan. She is given a note for work for 4 days. Departure - Departure Disposition: Home, Self Care Clinical Impression: Irritable bowel syndrome (IBS) Qualifiers: Irritable bowel syndrome type: with diarrhea Qualified Code(s): K58.0 - Irritable bowel syndrome with diarrhea Condition: Stable Instructions: ED IBS Follow-Up: Balta Brito DO [Primary Care Provider] - Prescriptions: Promethazine [Phenergan] 25 mg PO Q6H PRN #10 tab PRN Reason: Nausea / Vomiting Forms: Activity restrictions
[2019-03-08 14:16] VITALS: BP 116/77
== END 2019-03-08 14:16 | disposition home or self-care (01) ==
LOC: ED 10:25
DX: K58.0 Irritable bowel syndrome with diarrhea (principal); E86.0 Dehydration; F41.9 Anxiety disorder, unspecified; F41.0 Panic disorder [episodic paroxysmal anxiety]; Z87.11 Personal history of peptic ulcer disease
CPT/HCPCS: 36415; 80053; 81001; 81025; 83690; 85025; 96365; 99283; J7040; 81003; 87086

== ENCOUNTER 2019-08-25 10:47 | Emergency (ER) | payer MEDICAID, OTHER ==
[2019-08-25] MEDS ORDERED: predniSONE 20 MG TABLET PO STA (11:48)
[2019-08-25] MEDS ORDERED: IPRATROPIUM/ALBUTEROL 3 ML NEB INH STA (11:48)
--- NOTE | 2019-08-25 12:05 | ED Physician Documentation ---
PD HPI URI - Stated complaint Stated Complaint: SOA - Chief complaint Chief Complaint: Resp - History obtained from History obtained from: Patient - History of Present Illness Timing - onset: How many weeks ago (1) Timing details: Gradual onset Pain level max: 0 Pain level now: 0 Associated symptoms: Rhinorrhea, Dry cough, Dyspnea. No: Fever Contributing factors: Sick contact, COPD / asthma (out of inhalers) Improves by: Rest Worsened by: Activity, Breathing Recently seen: Not recently seen Review of Systems Constitutional: denies: Fever, Chills Nose: reports: Rhinorrhea / runny nose, Congestion Cardiac: denies: Palpitations Respiratory: reports: Dyspnea, Cough, Wheezing GI: denies: Nausea, Vomiting, Diarrhea : denies: Now EGA Skin: denies: Rash PD PAST MEDICAL HISTORY - Past Medical History Cardiovascular: None Respiratory: None Endocrine/Autoimmune: None GI: Ulcers, Colon polyps : None HEENT: None Psych: Depression, Anxiety, Panic attacks Musculoskeletal: None Derm: None - Past Surgical History Past Surgical History: Yes 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, 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: Breast 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 - Present Medications Home Medications: Ambulatory Orders Medication Instructions Recorded Confirmed Sertraline HCl [Zoloft] 125 mg PO DAILY 11/01/18 05/02/19 Propranolol [Inderal] 1 tab PO DAILY 01/15/19 05/02/19 buPROPion [Wellbutrin Xl] 150 mg PO DAILY 03/08/19 05/02/19 Albuterol Sulf [Ventolin Hfa 1 - 2 puffs INH Q4HR PRN #1 inhaler 08/25/19 Inhaler] predniSONE [Deltasone] 10 mg PO [id number] #42 tab 08/25/19 - Allergies Allergies/Adverse Reactions: Allergies Allergy/AdvReac Type Severity Reaction Status Date / Time ondansetron [From Zofran] Allergy Intermediate Emesis Verified 08/25/19 10:56 oxycodone [From Percocet] Allergy Emesis Verified 08/25/19 10:56 control pills Allergy Headache Uncoded 08/25/19 10:56 - Social History Does the pt smoke?: No Smoking Status: Never smoker Does the pt drink ETOH?: Yes Does the pt have substance abuse?: No - Immunizations Immunizations are current?: Yes - POLST Patient has POLST: No PD ED PE NORMAL - Vitals Vital signs reviewed: Yes - General General: Alert and oriented X 3, No acute distress, Well developed/nourished - HEENT HEENT: PERRL, Moist mucous membranes - Neck Neck: Supple, no meningeal sign - Cardiac Cardiac: RRR, Strong equal pulses - Respiratory Respiratory: No respiratory distress, Other (Diminished breath sounds and wheezing bilaterally) - Abdomen Abdomen: Soft, Non tender, Non distended - Derm Derm: Warm and dry - Extremities Extremities: No edema, No calf tenderness / cord - Neuro Neuro: Alert and oriented X 3, carbon lamp cleaner 2-12 intact, No motor deficit, No sensory deficit, Normal speech - Psych Psych: Normal mood, Normal affect Results - Vitals Vitals: Vital Signs - 24 hr 08/25/19 08/25/19 08/25/19 10:54 11:52 12:36 Temperature 36.9 C Heart Rate 87 81 80 Respiratory 18 14 20 Rate Blood Pressure 127/82 H 113/81 H O2 Saturation 96 95 Oxygen O2 Source Room air PD MEDICAL DECISION MAKING - ED course Complexity details: re-evaluated patient, considered differential, d/w patient ED course: Patient feels much better after nebulizer treatment and steroids. Will refill her inhalers for her and place her on a steroid taper. She is well-appearing, nontoxic. Afebrile. No evidence of pneumonia. Patient counseled regarding signs and symptoms for which I believe and urgent re-evaluation would be necessary. Patient with good understanding of and agreement to plan and is comfortable going home at this time This document was made in part using voice recognition software. While efforts are made to proofread this document, sound alike and grammatical errors may occur. Departure - Departure Disposition: 01 Home, Self Care Clinical Impression: Viral URI Condition: Good Instructions: ED URI Viral W Wheezing Follow-Up: Balta Brito DO [Primary Care Provider] - Within 1 week Prescriptions: Albuterol Sulf [Ventolin Hfa Inhaler] 1 - 2 puffs INH Q4HR PRN #1 inhaler PRN Reason: Shortness Of Air/Wheezing predniSONE [Deltasone] 10 mg PO [id number] #42 tab Comments: Return if you worsen. Follow up with your doctor as needed for further care. Forms: Activity restrictions Discharge Date/Time: 08/25/19 12:41
[2019-08-25 12:37] VITALS: BP 113/81
== END 2019-08-25 12:41 | disposition home or self-care (01) ==
LOC: ED 10:47
DX: J06.9 Acute upper respiratory infection, unspecified (principal)
CPT/HCPCS: 94640; 99283; 99284; J7512

== ENCOUNTER 2019-11-07 07:00 | Outpatient (CLI) | payer MEDICAID ==
[2019-11-07 12:49] LABS: BASOPHILS # (AUTO) 0.1 10^3/uL (0.0-0.1); BASOPHILS % (AUTO) 0.7 %; EOSINOPHILS # (AUTO) 0.3 10^3/uL (0.0-0.7); EOSINOPHILS % (AUTO) 3.5 %; HGB - HEMOGLOBIN 14.1 g/dL (12.0-16.0); LYMPHOCYTES # (AUTO) 3.1 10^3/uL (1.5-3.5); LYMPHOCYTES % (AUTO) 38.3 %; MEAN CORPUSCULAR HEMOGLOBIN 32.5 pg (27.0-31.0); MEAN CORPUSCULAR HGB CONC 33.3 g/dL (32.0-36.0); MEAN CORPUSCULAR VOLUME 97.5 fL (81.0-99.0); MEAN PLATELET VOLUME 10.2 fL (7.9-10.8); MONOCYTES # (AUTO) 0.6 10^3/uL (0.0-1.0); MONOCYTES % (AUTO) 7.8 %; NEUTROPHILS % (AUTO) 49.3 %; PLT - PLATELET COUNT 349 10^3/uL (130-450); RED BLOOD COUNT 4.34 10^6/uL (4.20-5.40); WHITE BLOOD COUNT 8.2 x10^3/uL (4.8-10.8)
[2019-11-07 12:53] LABS: HB2 TOTAL 13.9 g/dL; HEMOGLOBIN A1C 0.54 g/dL; HEMOGLOBIN A1C % 5.7 % (4.6-6.2)
[2019-11-07 13:01] LABS: ALBUMIN 3.9 g/dL (3.2-5.5); ALBUMIN/GLOBULIN RATIO 1.1 (1.0-2.2); BILIRUBIN,TOTAL 0.4 mg/dL (0.2-1.0); CALCIUM 8.8 mg/dL (8.5-10.3); CREATININE 0.7 mg/dL (0.4-1.0); TOTAL PROTEIN 7.3 g/dL (6.7-8.2)
[2019-11-07 13:03] LABS: THYROID STIMULATING HORMONE 8.25 uIU/mL (0.34-5.60)
== END 2019-11-07 23:59 | disposition home or self-care (01) ==
LOC: LAB.WCP 07:00
PROVIDERS: ATTEND Family Medicine
DX: R20.2 Paresthesia of skin (principal)
CPT/HCPCS: 36415; 80053; 82607; 83036; 84443; 85025; 85651; 86140

== ENCOUNTER 2019-11-18 11:39 | Outpatient (CLI) | payer MEDICAID ==
[2019-11-18 19:04] LABS: BASOPHILS # (AUTO) 0.1 10^3/uL (0.0-0.1); BASOPHILS % (AUTO) 0.7 %; EOSINOPHILS # (AUTO) 0.3 10^3/uL (0.0-0.7); HGB - HEMOGLOBIN 14.1 g/dL (12.0-16.0); LYMPHOCYTES # (AUTO) 3.1 10^3/uL (1.5-3.5); LYMPHOCYTES % (AUTO) 40.6 %; MEAN CORPUSCULAR HEMOGLOBIN 30.6 pg (27.0-31.0); MEAN CORPUSCULAR HGB CONC 31.5 g/dL (32.0-36.0); MEAN CORPUSCULAR VOLUME 97.2 fL (81.0-99.0); MEAN PLATELET VOLUME 9.8 fL (7.9-10.8); MONOCYTES # (AUTO) 0.4 10^3/uL (0.0-1.0); MONOCYTES % (AUTO) 4.7 %; NEUTROPHILS # (AUTO) 3.8 10^3/uL (1.5-6.6); NEUTROPHILS % (AUTO) 49.6 %; PLT - PLATELET COUNT 343 10^3/uL (130-450); RED BLOOD COUNT 4.61 10^6/uL (4.20-5.40); RED CELL DISTRIBUTION WIDTH 13.8 % (12.0-15.0); WHITE BLOOD COUNT 7.7 x10^3/uL (4.8-10.8)
[2019-11-18 19:31] LABS: ALBUMIN/GLOBULIN RATIO 1.1 (1.0-2.2); BILIRUBIN,TOTAL 0.6 mg/dL (0.2-1.0); CALCIUM 8.9 mg/dL (8.5-10.3); CREATININE 0.7 mg/dL (0.4-1.0); TOTAL PROTEIN 7.5 g/dL (6.7-8.2)
== END 2019-11-18 23:59 | disposition home or self-care (01) ==
LOC: LAB.WCP 11:39
PROVIDERS: ATTEND Family Medicine
DX: R11.2 Nausea with vomiting, unspecified (principal)
CPT/HCPCS: 36415; 80053; 84702; 85025

== ENCOUNTER 2019-12-22 11:33 | Outpatient (CLI) | payer MEDICAID ==
--- NOTE | 2019-12-22 14:27 | XRAY Report ---
Reason: SHORTNESS OF BREATH Procedure Date: 12/22/2019 Accession Number: [id number] / [id number] Procedure: WCP - Chest 2 View X-Ray CPT Code: 59186 Final Report FULL RESULT: EXAM: CHEST RADIOGRAPHY, 2 VIEWS EXAM DATE: 12/22/2019 11:33 AM. CLINICAL HISTORY: Shortness of breath in a 24-year-old female. COMPARISON: CHEST 2 VIEW PA/LAT 12/15/2015 12:51 PM. CHEST 2 VIEW PA/LAT 11/05/2015 2:16 PM. TECHNIQUE: Right PA and lateral views. FINDINGS: Lungs/Pleura: No focal opacities evident. No pleural effusion. No pneumothorax. Normal volumes. Mediastinum: Heart size normal, without adenopathy or pulmonary vascular congestion. Other: Trachea is midline. Osseous structures are unremarkable. IMPRESSION: Unremarkable chest for age and body size. No CHF, pneumonia or other demonstrated cause for shortness of breath. RADIA
== END 2019-12-22 11:34 | disposition home or self-care (01) ==
LOC: DI.WCP 11:33
PROVIDERS: ATTEND Family Medicine
DX: R06.02 Shortness of breath (principal)
CPT/HCPCS: 71046

== ENCOUNTER 2019-12-22 12:22 | Emergency (ER) | payer MEDICAID ==
[2019-12-22 12:30] VITALS: BP 126/81
--- NOTE | 2019-12-22 12:45 | ED Physician Documentation ---
PD HPI ABD PAIN - Stated complaint Stated Complaint: VOMITING - Chief complaint Chief Complaint: Abd Pain - History obtained from History obtained from: Patient - History of Present Illness Timing - onset: Other (24-year-old woman presents with a 3-day illness marked with vomiting, headache, and fever up to 101. She also has a cough productive of brown sputum. She was seen at her doctor's office and reportedly has a order for COVID 19 testing but it was not done because she did not fit the criteria so prevents resents to the emergency department for concern for same.) Review of Systems Constitutional: reports: Fever, Chills Nose: denies: Rhinorrhea / runny nose, Congestion Throat: denies: Sore throat Cardiac: denies: Chest pain / pressure, Palpitations Respiratory: denies: Dyspnea, Cough GI: denies: Abdominal Pain, Nausea, Vomiting PD PAST MEDICAL HISTORY - Past Medical History Cardiovascular: None Respiratory: None Endocrine/Autoimmune: None GI: Ulcers, Colon polyps : None HEENT: None Psych: Depression, Anxiety, Panic attacks Musculoskeletal: None Derm: None - Past Surgical History Past Surgical History: Yes 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, 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 - Present Medications Home Medications: Ambulatory Orders Medication Instructions Recorded Confirmed Sertraline HCl [Zoloft] 125 mg PO DAILY 11/01/18 05/02/19 Propranolol [Inderal] 1 tab PO DAILY 01/15/19 05/02/19 buPROPion [Wellbutrin Xl] 150 mg PO DAILY 03/08/19 05/02/19 Albuterol Sulf [Ventolin Hfa 1 - 2 puffs INH Q4HR PRN #1 inhaler 08/25/19 Inhaler] predniSONE [Deltasone] 10 mg PO [id number] #42 tab 08/25/19 - Allergies Allergies/Adverse Reactions: Allergies Allergy/AdvReac Type Severity Reaction Status Date / Time ondansetron [From Zofran] Allergy Intermediate Emesis Verified 12/22/19 12:26 oxycodone [From Percocet] Allergy Emesis Verified 12/22/19 12:26 control pills Allergy Headache Uncoded 12/22/19 12:26 - Social History Does the pt smoke?: No Smoking Status: Never smoker Does the pt drink ETOH?: Yes Does the pt have substance abuse?: No - Immunizations Immunizations are current?: Yes - POLST Patient has POLST: No PD ED PE NORMAL - Vitals Vital signs reviewed: Yes - General General: Alert and oriented X 3, No acute distress - HEENT HEENT: PERRL, EOMI - Neck Neck: Supple, no meningeal sign, No bony TTP - Cardiac Cardiac: RRR, No murmur - Respiratory Respiratory: No respiratory distress, Clear bilaterally - Abdomen Abdomen: Non tender - Back Back: No CVA TTP, No spinal TTP - Derm Derm: Normal color, Warm and dry - Extremities Extremities: No edema, No calf tenderness / cord - Neuro Neuro: Alert and oriented X 3, Normal speech Results - Vitals Vitals: Vital Signs - 24 hr 12/22/19 12:26 Temperature 36.6 C Heart Rate 94 Respiratory 14 Rate Blood Pressure 126/81 H O2 Saturation 98 Oxygen O2 Source Room air PD MEDICAL DECISION MAKING - ED course ED course: This is a 24-year-old woman with a viral syndrome, productive cough but reportedly clear chest x-ray at her doctor's office. She does not appear ill. There is no clinical evidence of meningitis. She was offered an IV for fluids and meds for the headache and vomiting which she declined. She is really only interested in viral testing for the current pandemic which is done. Discussed that she needs to home quarantine until well +24 hours. Departure - Departure Disposition: 01 Home, Self Care Clinical Impression: Viral syndrome, Viral URI Condition: Good Record reviewed to determine appropriate education?: Yes Instructions: ED Viral Syndrome Comments: Call your doctor to arrange a follow-up appointment, make the next available appointment. In the interim, return anytime if worse or if new symptoms develop. Forms: Activity restrictions
== END 2019-12-22 12:52 | disposition home or self-care (01) ==
LOC: ED 12:22
DX: J06.9 Acute upper respiratory infection, unspecified (principal); B34.9 Viral infection, unspecified
CPT/HCPCS: 81599; 99282; 99283

== ENCOUNTER 2019-12-25 12:52 | Emergency (ER) | payer MEDICAID ==
[2019-12-25] MEDS ORDERED: KETOROLAC 30 MG/ML VIAL IM STA (14:03)
[2019-12-25] MEDS ORDERED: PROMETHAZINE 25 MG/1 ML VIAL IM STA (14:03)
[2019-12-25] MEDS: diphenhydrAMINE INJ 50 MG/ML VIAL IM STA ×2 (14:14→14:21)
--- NOTE | 2019-12-25 14:16 | ED Physician Documentation ---
History of Present Illness - Stated complaint Stated Complaint: HEADACHE - Chief complaint Chief Complaint: Neuro - History obtained from History obtained from: Patient - History of Present Illness Timing: How many days ago (4) Pain level max: 9 Pain level now: 8 - Additonal information Additional information: 24-year-old female presents to the emergency department with a headache for the past 4 days. She states this is similar to her usual migraine headache. Took Imitrex at home without relief. No vomiting. No diarrhea. Has had an upper respiratory infection as well. No sinus pain. Does have nasal congestion and a dry cough. No vomiting. The headache is worse with light and sound. Better with rest and lying on the dark room. Gradual onset headache. Review of Systems Ten Systems: 10 systems reviewed and negative Eyes: reports: Photophobia Ears: denies: Ear pain Nose: denies: Rhinorrhea / runny nose, Congestion Respiratory: denies: Cough GI: denies: Vomiting, Diarrhea : denies: Dysuria Skin: denies: Rash Musculoskeletal: denies: Neck pain, Back pain Neurologic: denies: Focal weakness, Numbness, Confused, Head injury, LOC PD PAST MEDICAL HISTORY - Past Medical History Past Medical History: Yes Cardiovascular: None Respiratory: None Neuro: Migraines Endocrine/Autoimmune: HyPOthyroidism GI: Ulcers, Colon polyps : None HEENT: None Psych: Depression, Anxiety, Panic attacks Musculoskeletal: None Derm: None - Past Surgical History Past Surgical History: Yes 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, 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 - Present Medications Home Medications: Ambulatory Orders Medication Instructions Recorded Confirmed Sertraline HCl [Zoloft] 125 mg PO DAILY 11/01/18 12/25/19 Propranolol [Inderal] 40 mg PO DAILY 01/15/19 12/25/19 buPROPion [Wellbutrin Xl] 150 mg PO DAILY 03/08/19 12/25/19 Levothyroxine Sodium [Synthroid] 50 mcg PO DAILY 12/25/19 12/25/19 SUMAtriptan succinate [Sumatriptan 50 mg PO BID PRN MDD 2 12/25/19 12/25/19 Succinate] Topiramate [Topamax] 25 mg PO DAILY 12/25/19 12/25/19 predniSONE [Deltasone] 40 mg PO DAILY 12/25/19 12/25/19 - Allergies Allergies/Adverse Reactions: Allergies Allergy/AdvReac Type Severity Reaction Status Date / Time ondansetron [From Zofran] Allergy Intermediate Emesis Verified 12/25/19 13:56 latex Allergy Unknown Verified 12/25/19 13:56 oxycodone [From Percocet] Allergy Emesis Verified 12/25/19 13:56 control pills Allergy Headache Uncoded 12/25/19 13:56 - Social History Does the pt smoke?: No Smoking Status: Never smoker Does the pt drink ETOH?: Yes Does the pt have substance abuse?: No - Immunizations Immunizations are current?: Yes - POLST Patient has POLST: No PD ED PE NORMAL - Vitals Vital signs reviewed: Yes - General General: Alert and oriented X 3, No acute distress, Well developed/nourished, Other (Lying in a darkened room with her eyes closed) - HEENT HEENT: Atraumatic, PERRL, Ears normal, Moist mucous membranes, Pharynx benign - Neck Neck: Supple, no meningeal sign - Cardiac Cardiac: RRR, Strong equal pulses - Respiratory Respiratory: No respiratory distress, Clear bilaterally - Abdomen Abdomen: Soft, Non tender, Non distended - Derm Derm: Warm and dry - Extremities Extremities: No edema - Neuro Neuro: Alert and oriented X 3, clinical nurse educator 2-12 intact, No motor deficit, No sensory deficit, Normal speech Eye Opening: Spontaneous Motor: Obeys Commands Verbal: Oriented GCS Score: 15 - Psych Psych: Normal mood, Normal affect Results - Vitals Vitals: Vital Signs - 24 hr 12/25/19 12/25/19 12:53 14:57 Temperature 37.2 C 36.8 C Heart Rate 83 73 Respiratory 18 14 Rate Blood Pressure 129/96 H 98/63 O2 Saturation 97 98 Oxygen O2 Source Room air PD MEDICAL DECISION MAKING - ED course Complexity details: re-evaluated patient, considered differential, d/w patient ED course: Patient was given Toradol, Benadryl, Phenergan and headache resolved. No evidence of subarachnoid hemorrhage. Feels much better. She would like to go home at this time. No fever. No evidence of meningitis, encephalitis. Patient counseled regarding signs and symptoms for which I believe and urgent re-evaluation would be necessary. Patient with good understanding of and agreement to plan and is comfortable going home at this time This document was made in part using voice recognition software. While efforts are made to proofread this document, sound alike and grammatical errors may occur. Departure - Departure Disposition: 01 Home, Self Care Clinical Impression: Migraine Qualifiers: Migraine type: unspecified Status migrainosus presence: without status migrai nosus Intractability: not intractable Qualified Code(s): G43.909 - Migraine, unspecified, not intractable, without status migrainosus Condition: Good Instructions: ED Headache Migraine Follow-Up: Balta Brito DO [Primary Care Provider] - As Needed Comments: Continue your medications at home. Return if you worsen. Go home and rest today. Discharge Date/Time: 12/25/19 16:13
[2019-12-25 16:02] VITALS: BP 98/63
== END 2019-12-25 16:13 | disposition home or self-care (01) ==
LOC: ED 12:52
DX: G43.909 Migraine, unspecified, not intractable, without status migrainosus (principal)
CPT/HCPCS: 96372; 99283; 99284

== ENCOUNTER 2020-02-16 07:00 | Outpatient (CLI) | payer MEDICAID | END 2020-02-16 23:59 | disposition home or self-care (01) | LOC: LAB.R 07:00 | PROVIDERS: ATTEND Physician Assistant Medical | DX: L02.31 Cutaneous abscess of buttock (principal) | CPT/HCPCS: 87070; 87205 ==

== ENCOUNTER 2020-06-21 17:53 | Emergency (ER) | payer MEDICAID ==
[2020-06-21 18:30] VITALS: BP 118/77
== END 2020-06-21 19:50 | disposition left against medical advice (07) ==
LOC: ED 17:53
DX: Z53.21 Procedure and treatment not carried out due to patient leaving prior to being seen by health care provider (principal)

== ENCOUNTER 2020-07-13 17:50 | Outpatient (CLI) | payer MEDICAID ==
[2020-07-13 18:13] LABS: BASOPHILS % (AUTO) 0.4 %; EOSINOPHILS # (AUTO) 0.3 10^3/uL (0.0-0.7); EOSINOPHILS % (AUTO) 3.3 %; HGB - HEMOGLOBIN 13.8 g/dL (12.0-16.0); LYMPHOCYTES # (AUTO) 3.1 10^3/uL (1.5-3.5); LYMPHOCYTES % (AUTO) 33.7 %; MEAN CORPUSCULAR HEMOGLOBIN 30.5 pg (27.0-31.0); MEAN CORPUSCULAR HGB CONC 31.6 g/dL (32.0-36.0); MEAN CORPUSCULAR VOLUME 96.7 fL (81.0-99.0); MEAN PLATELET VOLUME 9.3 fL (7.9-10.8); MONOCYTES # (AUTO) 0.6 10^3/uL (0.0-1.0); MONOCYTES % (AUTO) 6.1 %; NEUTROPHILS # (AUTO) 5.1 10^3/uL (1.5-6.6); NEUTROPHILS % (AUTO) 55.8 %; PLT - PLATELET COUNT 382 10^3/uL (130-450); RED BLOOD COUNT 4.52 10^6/uL (4.20-5.40); RED CELL DISTRIBUTION WIDTH 14.4 % (12.0-15.0); WHITE BLOOD COUNT 9.1 x10^3/uL (4.8-10.8)
[2020-07-13 18:39] LABS: ALBUMIN 4.1 g/dL (3.2-5.5); ALBUMIN/GLOBULIN RATIO 1.1 (1.0-2.2); BILIRUBIN,TOTAL 0.5 mg/dL (0.2-1.0); CREATININE 0.7 mg/dL (0.4-1.0); TOTAL PROTEIN 7.8 g/dL (6.7-8.2)
== END 2020-07-13 17:51 | disposition home or self-care (01) ==
LOC: LAB 17:50
PROVIDERS: ATTEND Physician Assistant Medical
DX: R10.31 Right lower quadrant pain (principal)
CPT/HCPCS: 36415; 80053; 83690; 85025

== ENCOUNTER 2020-07-14 11:00 | Outpatient (CLI) | payer MEDICAID ==
[2020-07-14] MEDS ORDERED: IOVERSOL 320 100 ML VIAL IVP ONE ×2 (11:15→13:20)
[2020-07-14] MEDS ORDERED: IOVERSOL 320 50 ML VIAL ONE (11:15)
--- NOTE | 2020-07-14 13:00 | CT Report ---
PROCEDURE: Abdomen/Pelvis W INDICATIONS: ABD PAIN RT LOWER QUAD CONTRAST: IV CONTRAST: Optiray 320 ml: 100 PO CONTRAST: Optiray 320 ml50 TECHNIQUE: After the administration of oral and intravenous contrast, 5 mm thick sections acquired from the diap hragms to the symphysis. 5 mm thick coronal and sagittal reformats were acquired. For radiation dos e reduction, the following was used: automated exposure control, adjustment of mA and/or kV accordin g to patient size. COMPARISON: CT abdomen/pelvis 05/13/2018 FINDINGS: Image quality: Excellent. ABDOMEN: Lung bases: Mild dependent atelectasis in the lung bases. Heart size is normal. Solid organs: There is geographic fatty infiltration of the liver. Liver as mildly enlarged. The spl een is normal in size. Gallbladder appears normal. Biliary system is non dilated. Pancreas enhances normally. No adrenal nodules. Kidneys demonstrate normal size and enhancement, without hydronephro sis. Peritoneum and bowel: Bowel loops demonstrate normal wall thickness and caliber. Normal appendix No free fluid or air. Nodes and vessels: No retroperitoneal or mesenteric adenopathy by size criteria. Aorta and inferior vena cava are normal in size. Miscellaneous: No ventral hernias. PELVIS: Genitourinary: Bladder wall thickness is normal. The uterus appears normal. An intrauterine device is present. No adnexal mass is seen. Miscellaneous: No inguinal hernias or adenopathy. Bones: No suspicious bony lesions. No vertebral body compression fractures. IMPRESSION: 1. No acute abnormality is seen in the abdomen or pelvis. 2. Mild hepatic steatosis. Reviewed by: Shashi Alcaraz MD on 07/14/2020 12:59 PM PDT Approved by: Shashi Alcaraz MD on 07/14/2020 12:59 PM PDT Station ID: [id number]
[2020-07-14] MEDS ORDERED: IOVERSOL 320 50 ML VIAL PO ONE (13:21)
== END 2020-07-14 11:01 | disposition home or self-care (01) ==
LOC: DI 11:00
PROVIDERS: ATTEND Physician Assistant Medical
DX: R10.31 Right lower quadrant pain (principal); K76.0 Fatty (change of) liver, not elsewhere classified
CPT/HCPCS: 74177; Q9967

== ENCOUNTER 2020-08-04 06:39 | Outpatient (CLI) | payer MEDICAID ==
--- NOTE | 2020-08-04 11:22 | Ultrasound Report ---
PROCEDURE: Abdomen Complete INDICATIONS: DIARRHEA TECHNIQUE: Real-time scanning was performed of the abdominal and retroperitoneal organs, with image documentatio n. COMPARISON: Prior CT abdomen/pelvis 07/14/2020. FINDINGS: Liver: Liver is enlarged at 20 cm in size and homogeneous in echotexture, diffusely hyperechoic cons istent with fatty infiltration. Gallbladder: The gallbladder appears normal. Biliary ducts: Intrahepatic bile ducts are non-dilated. Extrahepatic bile duct caliber measures 2.5 mm. Normal is 6-7 mm or less in diameter, or 10 mm or less post-cholecystectomy. Pancreas: Visualized portions of the pancreas are sonographically normal. Spleen: Spleen is normal in size and homogeneous in echotexture. Kidneys: Kidneys are normal in size and echotexture. Right kidney measures 13.8 cm long; left kidne y measures 12.6 cm long. No hydronephrosis or nephrolithiasis. No solid masses. Aorta: Visualized aorta is normal in caliber at less than 3 cm. Iliacs: Proximal common iliac arteries are normal in caliber at less than 2.5 cm. IVC: Intrahepatic inferior vena cava is patent. Miscellaneous: No free abdominal fluid. IMPRESSION: Somewhat limited evaluation due to body habitus and overlying bowel gas. Prominent fatty infiltration throughout the liver. No liver mass seen. The liver is moderately enlarged. The spleen is not enlarg ed in craniocaudad length. No ascites is found. Reviewed by: Noah Barry MD on 08/04/2020 11:21 AM PDT Approved by: Noah Barry MD on 08/04/2020 11:21 AM PDT Station ID: [id number]
== END 2020-08-04 06:40 | disposition home or self-care (01) ==
LOC: DI 06:39
PROVIDERS: ATTEND Physician Assistant Medical
DX: K76.0 Fatty (change of) liver, not elsewhere classified (principal); R16.0 Hepatomegaly, not elsewhere classified
CPT/HCPCS: 76700

== ENCOUNTER 2020-08-20 08:38 | Outpatient (CLI) | payer MEDICAID ==
[2020-08-20] MEDS ORDERED: SINCALIDE 5 MCG VIAL ONE (10:06)
[2020-08-23] MEDS ORDERED: SINCALIDE 1.9 MCG in SODIUM CHLORIDE 0.9% 50 ML IV ONE (10:19)
--- NOTE | 2020-08-23 12:57 | Nuclear Medicine Report ---
PROCEDURE: Hepatobiliary HIDA w/ Rx INDICATIONS: CHRONIC NAUSEA RADIOPHARMACEUTICAL: 4.9 mCi Tc-99m mebrofenin i.v. and 1.9 ?g sincalide i.v. TECHNIQUE: Following intravenous administration of Tc-99m mebrofenin, sequential anterior abdominal images were obtained through 60 minutes. To evaluate the contractile response of the gallbladder in response to Cholecystokinin (CCK), 1.9 microgram sincalide (0.02 ?g/kg) was administered by slow intr avenous infusion approximately 50 minutes after the administration of the radiopharmaceutical. Seque ntial imaging was continued for 30 minutes after the start of CCK infusion. Gallbladder ejection fra ction was calculated. COMPARISON: None. FINDINGS: Biliary scan: There is normal tracer uptake and excretion by the liver. There is normal visualizati on of the intrahepatic ducts, common bile duct, and gallbladder. There is normal tracer transit into the duodenum. CCK stimulation: There is normal contractile response of the gallbladder to CCK infusion. The calcu lated gallbladder ejection fraction is 99%; normal values are above 35%. IMPRESSION: 1. Normal biliary imaging study. 2. Normal contractile response of gallbladder to CCK infusion.. Reviewed by: Torin Velazquez MD on 08/23/2020 12:56 PM PST Approved by: Torin Velazquez MD on 08/23/2020 12:56 PM PST Station ID: [id number]
== END 2020-08-20 08:39 | disposition home or self-care (01) ==
LOC: DI 08:38
PROVIDERS: ATTEND Physician Assistant Medical
DX: R11.0 Nausea (principal)
CPT/HCPCS: 78227; A9537

== ENCOUNTER 2021-01-24 08:00 | Outpatient (CLI) | payer MEDICAID | END 2021-01-24 23:59 | disposition home or self-care (01) | LOC: LAB.WCP 08:00 | PROVIDERS: ATTEND Nurse Practitioner Obstetrics & Gynecology | DX: O21.0 Mild hyperemesis gravidarum (principal); Z32.02 Encounter for pregnancy test, result negative | CPT/HCPCS: 36415; 84702 ==

== ENCOUNTER 2021-03-30 08:44 | Emergency (ER) | payer MEDICAID ==
--- NOTE | 2021-03-30 11:10 | ED Physician Documentation ---
History of Present Illness - Stated complaint Stated Complaint: POST OP COMP - Chief complaint Chief Complaint: General - History obtained from History obtained from: Patient - Additonal information Additional information: Patient comes emergency department for chief complaint of pain in incisional sites after surgery to reduce skin and tissue along her breasts and axillae bilaterally. Patient states she had had a breast reduction and was left with folds of skin and tissue and had the surgery for this reason. Surgery was 5 days ago and patient states she is having a lot of pain on especially the left side. The areas both feel swollen, though she has not noticed redness. No fevers. No drainage from the wounds. Patient is currently taking 1 tablet of Vicodin every 6 hours as needed for pain. She also complains of an ingrown toenail on her left great toe. She has been trying hot soaks and it does not seem to be relieving the symptoms. Review of Systems Ten Systems: 10 systems reviewed and negative Constitutional: reports: Reviewed and negative Eyes: reports: Reviewed and negative Ears: reports: Reviewed and negative Nose: reports: Reviewed and negative Throat: reports: Reviewed and negative Cardiac: reports: Reviewed and negative Respiratory: reports: Reviewed and negative GI: reports: Reviewed and negative : reports: Reviewed and negative Skin: reports: Other (Incisions bilateral axillary) Musculoskeletal: reports: Extremity pain, Other (Ingrown toenail left toe, Great) Neurologic: reports: Reviewed and negative Psychiatric: reports: Reviewed and negative Endocrine: reports: Reviewed and negative Immunocompromised: reports: Reviewed and negative PD PAST MEDICAL HISTORY - Past Medical History Past Medical History: Yes Cardiovascular: None Respiratory: None Neuro: Migraines Endocrine/Autoimmune: HyPOthyroidism GI: Ulcers, Colon polyps : None HEENT: None Psych: Depression, Anxiety, Panic attacks Musculoskeletal: None Derm: None - Past Surgical History Past Surgical History: Yes 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, EGD /[facility]: Breast reduction - Present Medications Home Medications: Ambulatory Orders Medication Instructions Recorded Confirmed Sertraline HCl [Zoloft] 150 mg PO DAILY 11/01/18 03/30/21 Levothyroxine Sodium [Synthroid] 50 mcg PO DAILY 12/25/19 03/30/21 SUMAtriptan succinate [Sumatriptan 50 mg PO BID PRN MDD 2 12/25/19 03/30/21 Succinate] Topiramate [Topamax] 100 mg PO DAILY 12/25/19 03/30/21 Dextroamphetamine/Amphetamine 30 mg PO DAILY 03/30/21 03/30/21 [Adderall 30 mg Tablet] Dicyclomine [Bentyl] 10 mg PO DAILY 03/30/21 03/30/21 oxyCODONE/ACET 5/325 [Percocet 5 2 each PO Q4-6H #14 tablet 03/30/21 mg/325 mg] - Allergies Allergies/Adverse Reactions: Allergies Allergy/AdvReac Type Severity Reaction Status Date / Time ondansetron [From Zofran] Allergy Intermediate Emesis Verified 03/30/21 09:04 latex Allergy Unknown Verified 03/30/21 09:04 oxycodone [From Percocet] Allergy Emesis Verified 03/30/21 09:04 control pills Allergy Headache Uncoded 06/21/20 18:30 - Social History Does the pt smoke?: No Smoking Status: Never smoker Does the pt drink ETOH?: Yes Does the pt have substance abuse?: Yes Substance Use and Type: CBD oil / Products - Immunizations Immunizations are current?: Yes - POLST Patient has POLST: No PD ED PE NORMAL - Vitals Vital signs reviewed: Yes - General General: Alert and oriented X 3, No acute distress, Well developed/nourished - HEENT HEENT: Atraumatic, PERRL, EOMI, Moist mucous membranes - Neck Neck: Supple, no meningeal sign - Respiratory Respiratory: No respiratory distress - Derm Derm: Warm and dry, Other (Approximately 15 cm incisions bilateral inferior axillae extending to lateral aspect of each breast. Tenderness palpation along both incisions, worse on left. No induration except at immediate incisional site. No erythema, wound dehiscence, or drainage. No fluctuance. L>R) - Extremities Extremities: No deformity, Other (Mild edema of lateral aspect of left great toe along the nail, especially distally. Very small amount of purulent fluid expressible. No erythema or induration.) - Neuro Neuro: Alert and oriented X 3 - Psych Psych: Normal mood, Normal affect Results - Vitals Vitals: Vital Signs - 24 hr 03/30/21 09:06 Temperature 36.5 C Heart Rate 107 H Respiratory 16 Rate Blood Pressure 133/96 H O2 Saturation 98 Oxygen O2 Source Room air PD MEDICAL DECISION MAKING - ED course Complexity details: considered differential, d/w patient ED course: I discussed with the patient that she may actually take up to 2 tablets of her Vicodin every 4 hours as needed. If this does not control her pain well enough, she may take Percocet instead, which I have prescribed for her. I have advised her not to take both at the same time. She is advised to follow-up with podiatry regarding her toe. I have clipped the corner and the toe does not appear to be cellulitic. We have discussed the usual indications for return. Departure - Departure Disposition: Home, Self Care Clinical Impression: Post-op pain, Ingrown toenail of left foot Condition: Stable Instructions: Pain Management Post Surg, ED Ingrown Toenail No Infec Home Tx Prescriptions: oxyCODONE/ACET 5/325 [Percocet 5 mg/325 mg] 2 each PO Q4-6H #14 tablet Comments: The corner of your toenail has been removed today. However, you should still follow-up with podiatry for further evaluation. Please soak your foot in hot Epsom salt water to get rid of any bacterial buildup and pus around the edge of your nail. As far as your postoperative pain, you may take the hydrocodone as much as 2 pills every 4 hours as needed. If this is not working well enough, you may fill the prescription for the Percocet and take this is often as 2 tablets every 4 hours. Please follow-up with your surgeon for further evaluation or concerns regarding your op sites. There is no evidence of infection at this time.
[2021-03-30 11:16] VITALS: BP 119/76
== END 2021-03-30 11:30 | disposition home or self-care (01) ==
LOC: ED 08:44
DX: G89.18 Other acute postprocedural pain (principal); Z98.890 Other specified postprocedural states; L60.0 Ingrowing nail
CPT/HCPCS: 99282; 99284

== ENCOUNTER 2023-03-09 08:00 | Outpatient (CLI) | payer MEDICAID ==
[2023-03-09 22:46] LABS: CHLAMYDIA TRACHOMATIS DNA NEGATIVE (NEGATIVE); NEISSERIA GONORRHOEAE DNA NEGATIVE (NEGATIVE); TRICHOMONAS VAGINALIS DNA NEGATIVE (NEGATIVE)
== END 2023-03-09 23:59 | disposition home or self-care (01) ==
LOC: LAB 08:00
PROVIDERS: ATTEND Nurse Practitioner
DX: Z11.3 Encounter for screening for infections with a predominantly sexual mode of transmission (principal)
CPT/HCPCS: 87491; 87591; 87661

== ENCOUNTER 2023-03-09 11:00 | Outpatient (CLI) | payer MEDICAID ==
[2023-03-09 11:19] LABS: BASOPHILS % (AUTO) 0.1 %; EOSINOPHILS # (AUTO) 0.1 10^3/uL (0.0-0.7); EOSINOPHILS % (AUTO) 1.4 %; HCT - HEMATOCRIT 35.3 % (37.0-47.0); HGB - HEMOGLOBIN 11.8 g/dL (12.0-16.0); LYMPHOCYTES # (AUTO) 1.7 10^3/uL (1.5-3.5); LYMPHOCYTES % (AUTO) 19.6 %; MEAN CORPUSCULAR HEMOGLOBIN 31.1 pg (27.0-31.0); MEAN CORPUSCULAR HGB CONC 33.4 g/dL (32.0-36.0); MEAN CORPUSCULAR VOLUME 93.1 fL (81.0-99.0); MEAN PLATELET VOLUME 9.6 fL (7.9-10.8); MONOCYTES # (AUTO) 0.6 10^3/uL (0.0-1.0); MONOCYTES % (AUTO) 6.5 %; NEUTROPHILS # (AUTO) 6.3 10^3/uL (1.5-6.6); NEUTROPHILS % (AUTO) 71.5 %; PLT - PLATELET COUNT 279 10^3/uL (130-450); RED BLOOD COUNT 3.79 10^6/uL (4.20-5.40); RED CELL DISTRIBUTION WIDTH 13.8 % (12.0-15.0); WHITE BLOOD COUNT 8.8 x10^3/uL (4.8-10.8)
[2023-03-09 13:20] LABS: ESTIMATED AVERAGE GLUCOSE 114 mg/dL (70-100); HEMOGLOBIN A1c% 5.6 % (4.27-6.07)
[2023-03-10 03:09] LABS: HBsAG SCREEN Negative (Negative); HIV SCREEN 4TH GENERATION Non Reactive (Non Reactive); RPR Non Reactive (Non Reactive)
== END 2023-03-09 11:01 | disposition home or self-care (01) ==
LOC: LAB 11:00
PROVIDERS: ATTEND Nurse Practitioner
DX: O24.419 Gestational diabetes mellitus in pregnancy, unspecified control (principal)
CPT/HCPCS: 36415; 83036; 85025; 86592; 86762; 86850; 86900; 86901; 87340; 87389

== ENCOUNTER 2023-03-20 21:01 | Outpatient (CLI) | payer MEDICAID ==
--- NOTE | 2023-03-21 13:08 | Ultrasound Report ---
PROCEDURE: OB F/U or Repeat INDICATIONS: GESTATIONAL DIABETES, UTERINE SIZE DATE DISCREPANCY OUTSIDE/PRIOR DATING DATA: Last menstrual period (LMP): Unknown. LMP-based estimated date of delivery (CARMELO): Unknown. First dating scan (date and location): 10/11/2022. [facility] Estimated date of delivery (CARMELO) from first dating scan: 06/02/2023. The below data below was generated using the ultrasound CARMELO of 06/02/2023 TECHNIQUE: Real-time scanning was performed of the fetus, with image documentation and biometric measurements. COMPARISON: None available. FINDINGS: General: A single living intrauterine gestation is present. Presentation: Breech Placenta: Placental position is fundal/posterior, without previa. Amniotic fluid index: 14.9 cm, normal for gestational age. heart rate: 153 beats per minute. Maternal cervical canal: 5.4 cm long; normal length is 2.5 cm or more. biometrics: Biparietal diameter: 7.7 cm, 30 weeks 5 days Head circumference: 29.2 cm, 32 weeks 1 day Abdominal circumference: 27.8 cm, 31 weeks 6 days Femur length: 5.5 cm, 28 weeks 5 days Estimated gestational age from initial scan: 29 weeks 3 days Composite gestational age from present scan: 30 weeks 6 days Estimated weight and percentile: 1653 g, 86th percentile Measurement variability in biometric dating: +/- 10 days from 12-20 weeks gestation, +/- 2 weeks from 20-30 weeks gestation, +/- 3 weeks at 30 weeks gestation or more. IMPRESSION: 1. Sue living intrauterine at 30 weeks 6 days based on today's ultrasound. Fetus is i n the 86th percentile for weight. Breech position. 2. Normal placenta and amniotic fluid. Reviewed by: Darron Rowe MD on 03/21/2023 1:07 PM PDT Approved by: Darron Rowe MD on 03/21/2023 1:07 PM PDT Station ID: [id number]
== END 2023-03-20 21:02 | disposition home or self-care (01) ==
LOC: DI 21:01
PROVIDERS: ATTEND Nurse Practitioner
DX: O24.419 Gestational diabetes mellitus in pregnancy, unspecified control (principal); O26.843 Uterine size-date discrepancy, third trimester; O32.1XX0 Maternal care for breech presentation, not applicable or unspecified; Z3A.30 30 weeks gestation of pregnancy

== ENCOUNTER 2023-04-04 08:00 | Outpatient (CLI) | payer MEDICAID ==
[2023-04-04 16:56] LABS: CHLAMYDIA TRACHOMATIS DNA NEGATIVE (NEGATIVE); NEISSERIA GONORRHOEAE DNA NEGATIVE (NEGATIVE)
[2023-04-04 20:06] LABS: BACTERIAL VAGINOSIS DNA NEGATIVE (NEGATIVE); CANDIDA GLABRATA DNA NEGATIVE (NEGATIVE); CANDIDA GROUP DNA NEGATIVE (NEGATIVE); CANDIDA KRUSEI DNA NEGATIVE (NEGATIVE); TRICHOMONAS VAGINALIS DNA NEGATIVE (NEGATIVE)
== END 2023-04-04 23:59 | disposition home or self-care (01) ==
LOC: LAB.WC 08:00
PROVIDERS: ATTEND Nurse Practitioner
DX: N89.8 Other specified noninflammatory disorders of vagina (principal)
CPT/HCPCS: 81514; 87491; 87591; 87661

== ENCOUNTER 2023-04-06 10:14 | Outpatient (CLI) | payer MEDICAID ==
[2023-04-06 10:38] VITALS: BP 106/69
--- NOTE | 2023-04-06 23:58 | PROCEDURE REPORT ---
- HPI Diagnosis/Indication for NST: Other ( tachycardia noted on office doppler) Current EDU 05/25/23 Gestation 33 Weeks and 0 Days 4 Para 1 Vital Signs Temperature 98.1 F 04/06/23 10:33 Heart Rate 106 H 04/06/23 10:33 Respiratory Rate 17 04/06/23 10:33 Blood Pressure 106/69 04/06/23 10:33 O2 Saturation 99 04/06/23 10:33 Temperature 98.1 F 04/06/23 10:33 Heart Rate 106 H 04/06/23 10:33 Respiratory Rate 17 04/06/23 10:33 Blood Pressure 106/69 04/06/23 10:33 O2 Saturation 99 04/06/23 10:33 If not protocol: Oxygen Flow, liters/minute - NST Procedure NST Procedure Start Date 04/06/23 Start Time 10:22 Stop Time 10:50 Vibroacoustic Stimulation Used No Patient States Movement Yes EFM: 150s, moderate variability, positive 15x15 accelerations, no decelerations [place]: no contractions NST reactive/Cat 1 Performed and read 04/07/23 - Results and Plan Plan: 27yo at 31.6w sent from office for tachycardia noted 170s - NST reactive, tachycardia not appreciated, may have been acceleration on doppler - Discharge to home, follow up with OB as scheduled - TSH normal, ordered during office visit as this was previously elevated
== END 2023-04-06 12:05 | disposition home or self-care (01) ==
LOC: WFO 10:14 → FBP 10:15 → WFO 12:05
PROVIDERS: ATTEND Obstetrics & Gynecology
DX: Z03.79 Encounter for other suspected maternal and fetal conditions ruled out (principal)
CPT/HCPCS: 36415; 59025; 84443; 99215

== ENCOUNTER 2023-04-13 15:38 | Outpatient (CLI) | payer MEDICAID ==
--- NOTE | 2023-04-13 23:15 | Ultrasound Report ---
PROCEDURE: OB Biophysical Profile INDICATIONS: GESTATIONAL DIABETES OUTSIDE/PRIOR DATING DATA: Last menstrual period (LMP): Unknown. LMP-based estimated date of delivery (CARMELO): Not calculated. First dating scan (date and location): 10/11/2022. Estimated date of delivery (CARMELO) from first dating scan: 06/02/2023. The below data below was generated using the ultrasound CARMELO of 06/02/2023 TECHNIQUE: Real-time scanning was performed of the fetus, with image documentation and biometric tory surements. Biophysical profile was also obtained. Endovaginal scanning: Not performed COMPARISON: 03/20/2023 FINDINGS: General: A single living intrauterine gestation is present. Presentation: Vertex Placenta: Placental position is posterior fundal, without previa. Amniotic fluid index: 8.9 cm, 6.8% for gestational age. heart rate: 130 beats per minute. Maternal cervical canal: Maternal cervix appears visibly adequate and closed. Estimated gestational age from initial scan: 32 weeks and 6 days. Biophysical profile: Tone: 2 points. Movement: 2 points. Respiration: 2 points. Largest pocket of fluid: 2 points. (3.2 cm) Umbilical artery Doppler: S/D ratios 1.9, 2.4, 2.1 with normal Doppler waveforms IMPRESSION: Single living intrauterine gestation with estimated gestational age of approximately 32 weeks and 6 d ays. Biophysical profile score of 8 out of 8. Four-quadrant NORMA measuring 8.9 cm which falls within the 6.8th percentile for gestational age. Reviewed by: Washington Villanueva MD on 04/13/2023 11:14 PM PDT Approved by: Washington Villanueva MD on 04/13/2023 11:14 PM PDT Station ID: [id number]
== END 2023-04-13 15:39 | disposition home or self-care (01) ==
LOC: DI 15:38
PROVIDERS: ATTEND Nurse Practitioner
DX: O24.419 Gestational diabetes mellitus in pregnancy, unspecified control (principal); O09.893 Supervision of other high risk pregnancies, third trimester; Z3A.32 32 weeks gestation of pregnancy

== ENCOUNTER 2023-04-13 16:59 | Outpatient (CLI) | payer MEDICAID ==
[2023-04-13 17:28] VITALS: BP 112/77
--- NOTE | 2023-04-16 10:40 | PROCEDURE REPORT ---
- HPI Diagnosis/Indication for NST: Gestational Diabetes Current EDU 05/25/23 Gestation 34 Weeks and 0 Days 4 Para 1 Vital Signs Temperature 98.2 F 04/13/23 17:11 Heart Rate 95 04/13/23 17:11 Respiratory Rate 18 04/13/23 17:11 Blood Pressure 112/77 04/13/23 17:11 Temperature 98.2 F 04/13/23 17:11 Heart Rate 95 04/13/23 17:11 Respiratory Rate 18 04/13/23 17:11 Blood Pressure 112/77 04/13/23 17:11 O2 Saturation If not protocol: Oxygen Flow, liters/minute - NST Procedure NST Procedure Start Date 04/13/23 Start Time 17:14 Stop Time 17:50 Vibroacoustic Stimulation Used No Patient States Movement Yes EFM: 140s, moderate variability, positive 15x15 accelerations, no decelerations [place]: no contractions NST reactive/Cat 1 Performed and read 04/13/23 - Results and Plan Plan: 27yo at 32.6w presenting for scheduled NST for GDM - NST reactive - Follow up as scheduled
== END 2023-04-13 18:00 | disposition home or self-care (01) ==
LOC: WFO 16:59 → FBP 17:02 → WFO 18:00
PROVIDERS: ATTEND Obstetrics & Gynecology
DX: O24.419 Gestational diabetes mellitus in pregnancy, unspecified control (principal); O09.893 Supervision of other high risk pregnancies, third trimester; Z3A.34 34 weeks gestation of pregnancy
CPT/HCPCS: 59025

== ENCOUNTER 2023-04-17 17:57 | Outpatient (CLI) | payer MEDICAID ==
[2023-04-17 18:14] VITALS: BP 121/76
--- NOTE | 2023-04-17 18:46 | PROCEDURE REPORT ---
- HPI Diagnosis/Indication for NST: Gestational Diabetes Vital Signs Temperature 98.1 F 04/17/23 18:08 Heart Rate 99 04/17/23 18:08 Respiratory Rate 20 04/17/23 18:08 Blood Pressure 121/76 04/17/23 18:08 O2 Saturation 99 04/17/23 18:08 Temperature 98.1 F 04/17/23 18:08 Heart Rate 99 04/17/23 18:08 Respiratory Rate 20 04/17/23 18:08 Blood Pressure 121/76 04/17/23 18:08 O2 Saturation 99 04/17/23 18:08 If not protocol: Oxygen Flow, liters/minute - NST Procedure NST Procedure Start Time 17:14 Stop Time 17:50 - Results and Plan Plan: Patient is a 27-year-old -0-2-1 at 33 weeks 3 days gestation here for scheduled NST. NST Performed 04/17/2023 NST Read 04/17/2023 FHT: 135 bpm baseline, moderate variability, accelerations present, no decelerations. Reactive NST [place]: Quiescent Diagnosis 33 weeks gestation Gestational diabetes Continue with twice-weekly NST.
== END 2023-04-17 18:45 | disposition home or self-care (01) ==
LOC: WFO 17:57 → FBP 17:59 → WFO 18:45
PROVIDERS: ATTEND Obstetrics & Gynecology
DX: O24.419 Gestational diabetes mellitus in pregnancy, unspecified control (principal); O09.893 Supervision of other high risk pregnancies, third trimester; Z3A.33 33 weeks gestation of pregnancy
CPT/HCPCS: 59025

== ENCOUNTER 2023-04-20 17:06 | Outpatient (CLI) | payer MEDICAID ==
--- NOTE | 2023-04-21 03:23 | Ultrasound Report ---
PROCEDURE: OB Biophysical Profile INDICATIONS: GESTATIONAL DIABETES OUTSIDE/PRIOR DATING DATA: Last menstrual period (LMP): Unknown. First dating scan (date and location): 10/11/2022. Estimated date of delivery (CARMELO) from first dating scan: 06/02/2023. TECHNIQUE: Real-time scanning was performed of the fetus, with image documentation and biometric tory surements. Biophysical profile was also obtained. COMPARISON: 04/13/2023, 03/20/2023. FINDINGS: General: A single living intrauterine gestation is present. Presentation: Vertex Placenta: Placental position is posterior, without previa. Amniotic fluid index: 17.9 cm cm, within normal limits for gestational age. Largest pocket: 5.7 cm heart rate: 166 beats per minute. Maternal cervical canal: Not imaged. Biophysical profile: Tone: 2 points. Movement: 2 points. Respiration: 2 points. Largest pocket of fluid: 2 points. Umbilical artery Doppler: The cord Doppler demonstrates systolic/diastolic ratios of 2.1, 2.2, and 2 .7. IMPRESSION: 1. Single living intrauterine in vertex presentation redemonstrated. 2. Biophysical profile score of 8/8. 3. Cord Doppler within normal limits with preserved diastolic flow. 4. NORMA within normal limits. Reviewed by: Kolby Bull MD on 04/21/2023 3:22 AM PDT Approved by: Kolby Bull MD on 04/21/2023 3:22 AM PDT Station ID: [id number]
== END 2023-04-20 17:07 | disposition home or self-care (01) ==
LOC: DI 17:06
PROVIDERS: ATTEND Nurse Practitioner
DX: O09.893 Supervision of other high risk pregnancies, third trimester (principal); O24.419 Gestational diabetes mellitus in pregnancy, unspecified control; O99.280 Endocrine, nutritional and metabolic diseases complicating pregnancy, unspecified trimester; E74.39 Other disorders of intestinal carbohydrate absorption; Z3A.00 Weeks of gestation of pregnancy not specified

== ENCOUNTER 2023-04-20 17:49 | Outpatient (CLI) | payer MEDICAID ==
[2023-04-20 18:11] VITALS: BP 131/78
--- NOTE | 2023-04-21 10:17 | PROCEDURE REPORT ---
- HPI Current EDU 05/25/23 Gestation 35 Weeks and 0 Days 3 Para 1 Vital Signs Temperature 98.2 F 04/20/23 18:05 Heart Rate 94 04/20/23 18:05 Respiratory Rate 19 04/20/23 18:05 Blood Pressure 131/78 H 04/20/23 18:05 Temperature 98.2 F 04/20/23 18:05 Heart Rate 94 04/20/23 18:05 Respiratory Rate 19 04/20/23 18:05 Blood Pressure 131/78 H 04/20/23 18:05 O2 Saturation If not protocol: Oxygen Flow, liters/minute - NST Procedure NST Procedure Start Date 04/20/23 Start Time 17:59 Stop Time 18:19 Vibroacoustic Stimulation Used No Patient States Movement Yes - Results and Plan Plan: Patient is a 27-year-old -0-1-1 at 35 weeks 0 days gestation here for scheduled NST. NST Performed 04/20/2023 NST Read 04/20/2023 FHT: 135 bpm baseline, moderate variability, accelerations present, no decelerations. Reactive NST [place]: Quiescent Diagnosis 35 weeks gestation Gestational diabetes Continue with twice-weekly NST.
== END 2023-04-20 18:25 | disposition home or self-care (01) ==
LOC: WFO 17:49 → FBP 17:51 → WFO 18:25
PROVIDERS: ATTEND Obstetrics & Gynecology
DX: O24.419 Gestational diabetes mellitus in pregnancy, unspecified control (principal); Z3A.35 35 weeks gestation of pregnancy; O99.280 Endocrine, nutritional and metabolic diseases complicating pregnancy, unspecified trimester; E74.39 Other disorders of intestinal carbohydrate absorption; O09.893 Supervision of other high risk pregnancies, third trimester
CPT/HCPCS: 59025

== ENCOUNTER 2023-04-24 18:01 | Outpatient (CLI) | payer MEDICAID ==
[2023-04-24 18:40] VITALS: BP 120/77
--- NOTE | 2023-04-24 18:59 | PROCEDURE REPORT ---
- HPI Diagnosis/Indication for NST: Gestational Diabetes Vital Signs Temperature 97.9 F 04/24/23 18:35 Heart Rate 90 04/24/23 18:35 Respiratory Rate 18 04/24/23 18:35 Blood Pressure 120/77 04/24/23 18:35 Temperature 97.9 F 04/24/23 18:35 Heart Rate 90 04/24/23 18:35 Respiratory Rate 18 04/24/23 18:35 Blood Pressure 120/77 04/24/23 18:35 O2 Saturation If not protocol: Oxygen Flow, liters/minute - NST Procedure NST Procedure Start Time 17:59 Stop Time 18:19 34+5 weeks NST for gestational diabetes reactive NST
== END 2023-04-24 19:10 | disposition home or self-care (01) ==
LOC: WFO 18:01 → FBP 18:05 → WFO 19:10
PROVIDERS: ATTEND Obstetrics & Gynecology Obstetrics
DX: O24.419 Gestational diabetes mellitus in pregnancy, unspecified control (principal); Z3A.34 34 weeks gestation of pregnancy
CPT/HCPCS: 59025

== ENCOUNTER 2023-04-27 17:50 | Outpatient (CLI) | payer MEDICAID ==
[2023-04-27 18:11] VITALS: BP 121/77
--- NOTE | 2023-04-28 07:02 | PROCEDURE REPORT ---
- HPI Diagnosis/Indication for NST: Gestational Diabetes Current EDU 06/02/23 Gestation 34 Weeks and 6 Days 3 Para 1 Vital Signs Temperature 98.4 F 04/27/23 18:04 Heart Rate 92 04/27/23 18:04 Respiratory Rate 17 04/27/23 18:04 Blood Pressure 121/77 04/27/23 18:04 Temperature 98.4 F 04/27/23 18:04 Heart Rate 92 04/27/23 18:04 Respiratory Rate 17 04/27/23 18:04 Blood Pressure 121/77 04/27/23 18:04 O2 Saturation If not protocol: Oxygen Flow, liters/minute - NST Procedure NST Procedure Start Date 04/27/23 Start Time 18:05 Stop Time 18:34 Patient States Movement Yes EFM: 140s, moderate variability, positive accelerations 15x15, no decelerations [place]: no contractions NST reactive/Cat 1 Performed and read 04/27/23 - Results and Plan Plan: 27yo at 34.6w presenting for scheduled NST for GDMA2 - NST reactive - Follow up as scheduled
== END 2023-04-27 18:45 | disposition home or self-care (01) ==
LOC: WFO 17:50 → FBP 17:51 → WFO 18:45
PROVIDERS: ATTEND Nurse Practitioner
DX: O24.414 Gestational diabetes mellitus in pregnancy, insulin controlled (principal); O09.893 Supervision of other high risk pregnancies, third trimester; Z3A.34 34 weeks gestation of pregnancy
CPT/HCPCS: 59025

== ENCOUNTER 2023-05-01 12:10 | Outpatient (CLI) | payer MEDICAID ==
[2023-05-01 12:33] VITALS: BP 115/74
--- NOTE | 2023-05-01 18:53 | PROCEDURE REPORT ---
- HPI Diagnosis/Indication for NST: Gestational Diabetes Current EDU 06/02/23 Gestation 35 Weeks and 3 Days 4 Para 1 Vital Signs Temperature 98.2 F 05/01/23 12:22 Heart Rate 118 H 05/01/23 12:22 Respiratory Rate 18 05/01/23 12:22 Blood Pressure 115/74 05/01/23 12:22 Temperature 98.2 F 05/01/23 12:22 Heart Rate 118 H 05/01/23 12:22 Respiratory Rate 18 05/01/23 12:22 Blood Pressure 115/74 05/01/23 12:22 O2 Saturation If not protocol: Oxygen Flow, liters/minute - NST Procedure NST Procedure Start Date 05/01/23 Start Time 12:19 Stop Time 12:45 Vibroacoustic Stimulation Used No Patient States Movement Yes EFM: 140s, moderate variability, positive 15x15 accelerations, no decelerations [place]: no contractions NST reactive/Cat 1 Performed and read 05/01/23 - Results and Plan Plan: 27yo at 35.3w presenting for scheduled NST for GDM - NST reactive - Follow up as scheduled
== END 2023-05-01 12:50 | disposition home or self-care (01) ==
LOC: WFO 12:10 → FBP 12:12 → WFO 12:50
PROVIDERS: ATTEND Obstetrics & Gynecology
DX: O24.414 Gestational diabetes mellitus in pregnancy, insulin controlled (principal); O09.893 Supervision of other high risk pregnancies, third trimester; Z3A.35 35 weeks gestation of pregnancy
CPT/HCPCS: 59025

== ENCOUNTER 2023-05-07 13:30 | Outpatient (CLI) | payer MEDICAID | END 2023-05-07 23:59 | disposition home or self-care (01) | LOC: DI 13:30 | PROVIDERS: ATTEND Nurse Practitioner | DX: O09.893 Supervision of other high risk pregnancies, third trimester (principal); Z36.85 Encounter for antenatal screening for Streptococcus B; Z3A.00 Weeks of gestation of pregnancy not specified | CPT/HCPCS: 87797 ==

== ENCOUNTER 2023-05-08 12:07 | Outpatient (CLI) | payer MEDICAID ==
[2023-05-08 12:47] VITALS: BP 110/72
--- NOTE | 2023-05-08 16:01 | Ultrasound Report ---
PROCEDURE: OB Biophysical Profile INDICATIONS: Gestational DM OUTSIDE/PRIOR DATING DATA: Last menstrual period (LMP): Unknown. LMP-based estimated date of delivery (CARMELO): Not calculated. First dating scan (date and location): 10/11/2022. Estimated date of delivery (CARMELO) from first dating scan: 06/02/2023. The below data below was generated using the ultrasound CARMELO of 06/02/2023 TECHNIQUE: Real-time scanning was performed of the fetus, with image documentation and biometric tory surements. Biophysical profile was also obtained. Endovaginal scanning: Not performed COMPARISON: 04/27/2023 FINDINGS: General: A single living intrauterine gestation is present. Presentation: Vertex Placenta: Placental position is posterior, without previa. Amniotic fluid index: 8.6 cm, 8.4% for gestational age. heart rate: 155 beats per minute. Maternal cervical canal: Maternal cervix not imaged secondary to advanced gestational age and positioning within the pelvis. Estimated gestational age from initial scan: 36 weeks and 3 days Biophysical profile: Tone: 2 points. Movement: 2 points. Respiration: 2 points. Largest pocket of fluid: 2 points. Umbilical artery Doppler: Normal cord Doppler waveforms and normal cord D/S ratios measuring 2.3 (ab domen), 2.85 (mid cord), and 1.97 (placental). IMPRESSION: Single living intrauterine gestation with estimated gestational age of approximately 36 weeks and 3 d ays. 4 quadrant NORMA measuring 8.6 cm which measures at the 8.4th percentile for gestational age. Biophysical profile score of 8 out of 8. Normal cord Dopplers and cord S/D ratios. Reviewed by: Washington Villanueva MD on 05/08/2023 3:59 PM PDT Approved by: Washington Villanueva MD on 05/08/2023 3:59 PM PDT Station ID: [id number]
--- NOTE | 2023-05-08 19:11 | PROCEDURE REPORT ---
- HPI Diagnosis/Indication for NST: Gestational Diabetes Current EDU 06/03/23 Gestation 36 Weeks and 2 Days 2 Para 1 Vital Signs Temperature 98.2 F 05/08/23 12:44 Heart Rate 113 H 05/08/23 12:44 Respiratory Rate 18 05/08/23 12:44 Blood Pressure 110/72 05/08/23 12:44 Temperature 98.2 F 05/08/23 12:44 Heart Rate 113 H 05/08/23 12:44 Respiratory Rate 18 05/08/23 12:44 Blood Pressure 110/72 05/08/23 12:44 O2 Saturation If not protocol: Oxygen Flow, liters/minute - NST Procedure NST Procedure Start Date 05/08/23 Start Time 12:20 Stop Time 12:50 Vibroacoustic Stimulation Used No Patient States Movement Yes EFM: 150s, moderate variability, positive 15x15 accelerations, no decelerations [place]: no contractions NST reactive/Cat 1 Performed and read 05/08/23 - Results and Plan Findings/Impression: 27yo at 36.3w presenting for scheduled NST for GDMA2 - NST reactive - Follow up as scheduled
== END 2023-05-08 15:10 | disposition home or self-care (01) ==
LOC: WFO 12:07 → FBP 12:10 → WFO 15:10
PROVIDERS: ATTEND Obstetrics & Gynecology
DX: O24.419 Gestational diabetes mellitus in pregnancy, unspecified control (principal); Z3A.36 36 weeks gestation of pregnancy
CPT/HCPCS: 59025; 87797

== ENCOUNTER 2023-05-18 12:41 | Outpatient (CLI) | payer MEDICAID ==
[2023-05-18 12:57] VITALS: BP 123/81
--- NOTE | 2023-05-22 09:06 | PROCEDURE REPORT ---
- HPI Diagnosis/Indication for NST: Gestational Diabetes Current EDU 06/02/23 Gestation 37 Weeks and 6 Days 4 Para 1 Vital Signs Temperature 98.2 F 05/18/23 12:47 Heart Rate 92 05/18/23 12:47 Respiratory Rate 18 05/18/23 12:47 Blood Pressure 123/81 H 05/18/23 12:47 Temperature 98.2 F 05/18/23 12:47 Heart Rate 92 05/18/23 12:47 Respiratory Rate 18 05/18/23 12:47 Blood Pressure 123/81 H 05/18/23 12:47 O2 Saturation If not protocol: Oxygen Flow, liters/minute - NST Procedure NST Procedure Start Date 05/18/23 Start Time 12:52 Stop Time 13:28 Vibroacoustic Stimulation Used No Patient States Movement Yes EFM: 160s, moderate variability, positive 15x15 accelerations, no decelerations [place]: q4m NST reactive/Cat 1 Performed and read 05/18/23 - Results and Plan Plan: 27yo at 38.3w presented for scheduled NST for GDMA2 - NST reactive - To office visit now - Follow up as scheduled
== END 2023-05-18 13:35 | disposition home or self-care (01) ==
LOC: WFO 12:41 → FBP 12:43 → WFO 13:35
PROVIDERS: ATTEND Obstetrics & Gynecology
DX: O24.419 Gestational diabetes mellitus in pregnancy, unspecified control (principal); Z3A.38 38 weeks gestation of pregnancy
CPT/HCPCS: 59025

== ENCOUNTER 2023-05-19 22:03 | Outpatient (CLI) | payer MEDICAID ==
[2023-05-19 22:51] LABS: RUPTURE OF MEMBRANES PLUS NEGATIVE (NEGATIVE)
[2023-05-20] MEDS ORDERED: ACETAMINOPHEN 500 MG TABLET PO PRN (00:21)
[2023-05-20 01:00] LABS: BILIRUBIN,URINE NEGATIVE (NEGATIVE); GLUCOSE, URINE (UA) NEGATIVE (NEGATIVE); KETONES,URINE (UA) NEGATIVE (NEGATIVE); LEUKOCYTE ESTERASE, URINE SMALL (NEGATIVE); NITRITE,URINE NEGATIVE (NEGATIVE); OCCULT BLOOD,URINE SMALL (NEGATIVE); PH,URINE 5.5 PH (5.0-7.5); PROTEIN,URINE NEGATIVE (NEGATIVE); UROBILINOGEN,URINE 0.2 (NORMAL) E.U./dL (NORMAL)
[2023-05-20 01:07] LABS: BACTERIA,URINE Few /HPF (None Seen); CLARITY,URINE CLEAR (CLEAR); EPITHELIAL CELLS,UR RARE Renal Tubular /HPF (<= Few); RBC,URINE 0-5 /HPF (0-5); SQUAMOUS EPITHELIAL CELL,UR MOD Squamous (<= Few)
[2023-05-20 01:25] VITALS: BP 131/90
--- NOTE | 2023-05-20 07:08 | PROCEDURE REPORT ---
- HPI Diagnosis/Indication for NST: Gestational Diabetes Current EDU 06/02/23 Gestation 38 Weeks and 1 Days 4 Para 1 Vital Signs Temperature 98.2 F 05/19/23 22:10 Heart Rate 92 05/19/23 22:10 Respiratory Rate 20 05/19/23 22:10 Blood Pressure 137/89 H 05/19/23 22:10 - NST Procedure NST Procedure Start Date 05/19/23 Start Time 23:00 Stop Time 23:20 Vibroacoustic Stimulation Used No - Results and Plan Plan: Patient is a 27-year-old here for leaking fluid and contractions. NST Performed 05/19/23 NST Read 05/19/23 FHT: 155 bpm baseline, moderate variability, accelerations present, no decelerations. Reactive NST [place]: 2-4 minutes Diagnosis 38 weeks gestation Rupture of amniotic membranes ruled out Threatened labor Disagree with nursing assessment of strip. Baseline 155 throughout. No variable decelerations, only fetus coming back to baseline. After 2 hours of observation with good movement palpated by RN, patient was asked about movements and noted that it has been less, but Continue with twice-weekly NST.
--- NOTE | 2023-05-20 10:59 | PROVIDER PROGRESS NOTE ---
- HPI Chief Complaint: Leakage of vaginal fluid Current : Current EDU 06/02/23 Gestation 38 Weeks and 1 Days 4 Para 1 Vital Signs Temperature 98.2 F 05/19/23 22:10 Heart Rate 92 05/19/23 22:10 Respiratory Rate 20 05/19/23 22:10 Blood Pressure 137/89 H 05/19/23 22:10 Temperature 98.2 F 05/19/23 22:10 Heart Rate 90 05/20/23 00:00 Respiratory Rate 05/20/23 00:00 Blood Pressure 131/90 H 05/20/23 00:00 O2 Saturation If not protocol: Oxygen Flow, liters/minute - Procedures OB Procedure Performed: NST Diagnosis/Indication for NST: Gestational Diabetes NST Procedure: NST Procedure Start Date 05/19/23 Start Time 23:00 Stop Time 23:20 Vibroacoustic Stimulation Used No Patient States Movement No: See notes, FM palp and hiccups heard on US Service Date of procedure: 05/20/23 (Read 05/20/23) - Plan Plan: Patient is a 27-year-old here for leaking fluid and contractions. [place] a pop and fluid while dancing and was worried about membrane rupture. No bleeding. No headache, vision changes, or RUQ pain. Does feel movement Physical Exam Constitutional: alert, no acute distress, well hydrated, well developed, well nourished, appropriate dress. Cardiovascular: Regular rate and rhythm. Respiratory: no respiratory distress. Abdomen: nondistended, nontender, no guarding. Psych: affect and mood appropriate, normal interaction, good eye contact. FHT: 155 bpm baseline, moderate variability, accelerations present, no decelerations. Reactive NST [place]: 3-4 minutes Bedside ultrasound: NORMA 11.8cm Labs: ROM plus: negative Diagnosis 38 weeks gestation Rupture of amniotic membranes ruled out Threatened labor A2GDM managed with metformi Patient intially left before ultrasound performed, so she returned for completion. Continue twice-weekly NST for A2GDM
--- NOTE | 2023-05-20 11:25 | PROVIDER PROGRESS NOTE ---
- HPI Chief Complaint: Leakage of vaginal fluid Current : Current EDU 06/02/23 Gestation 38 Weeks and 1 Days 4 Para 1 Vital Signs Temperature 98.2 F 05/19/23 22:10 Heart Rate 92 05/19/23 22:10 Respiratory Rate 20 05/19/23 22:10 Blood Pressure 137/89 H 05/19/23 22:10 Temperature 98.2 F 05/19/23 22:10 Heart Rate 90 05/20/23 00:00 Respiratory Rate 05/20/23 00:00 Blood Pressure 131/90 H 05/20/23 00:00 O2 Saturation If not protocol: Oxygen Flow, liters/minute - Procedures NST Procedure: NST Procedure Start Date 05/19/23 Start Time 23:00 Stop Time 23:20 Vibroacoustic Stimulation Used No Patient States Movement No: See notes, FM palp and hiccups heard on US Service Date of procedure: 05/20/23 (Read 05/20/23) - Plan Plan: Patient is a 27-year-old -0-0-1 at 38 weeks 1 day gestation presenting to triage for leaking fluid. Has been wearing a panty liner with some moisture in it between changed. Still has movement, although less than last several weeks. Had some bloody show last night when checked, but nothing today. She denies headache, right upper quadrant pain, changes in vision. Contractions unchanged. Physical Exam Constitutional: alert, no acute distress, well hydrated, well developed, well nourished, appropriate dress. Cardiovascular: Regular rate and rhythm. Respiratory: no respiratory distress. Abdomen: nondistended, nontender, no guarding. Psych: affect and mood appropriate, normal interaction, good eye contact. FHT: 150 beats per baseline, moderate ability, accelerations present, no decelerations. Reactive NST [place]: Quiescent ROM plus: Negative Assessment and plan 27-year-old -0-0-1 at 38 weeks 1 day gestation Leaking fluid without rupture of membranes: ROMplus again negative. Unlikely to be ruptured UA unremarkable last night. Continue twice weekly NSTs. Follow-up in clinic for routine care.
== END 2023-05-20 00:53 | disposition home or self-care (01) ==
LOC: WFO 22:03 → FBP 22:05 → WFO 05-20 00:53
PROVIDERS: ATTEND Obstetrics & Gynecology
DX: O47.1 False labor at or after 37 completed weeks of gestation (principal); O24.415 Gestational diabetes mellitus in pregnancy, controlled by oral hypoglycemic drugs; Z3A.38 38 weeks gestation of pregnancy
CPT/HCPCS: 81001; 84112; A9270; 59025; 87086; 99215

== ENCOUNTER 2023-05-20 11:15 | Outpatient (CLI) | payer MEDICAID ==
--- NOTE | 2023-05-20 11:26 | PROVIDER PROGRESS NOTE ---
- HPI Chief Complaint: Leakage of vaginal fluid - Procedures OB Procedure Performed: NST Diagnosis/Indication for NST: Gestational Diabetes NST Procedure: NST Procedure Start Time 23:00 Stop Time 23:20 Service Date of procedure: 05/20/23 (Read 05/20/23) - Plan Plan: Patient is a 27-year-old -0-0-1 at 38 weeks 1 day gestation presenting to triage for leaking fluid. Has been wearing a panty liner with some moisture in it between changed. Still has movement, although less than last several weeks. Had some bloody show last night when checked, but nothing today. She denies headache, right upper quadrant pain, changes in vision. Contractions unchanged. Physical Exam Constitutional: alert, no acute distress, well hydrated, well developed, well nourished, appropriate dress. Cardiovascular: Regular rate and rhythm. Respiratory: no respiratory distress. Abdomen: nondistended, nontender, no guarding. Psych: affect and mood appropriate, normal interaction, good eye contact. FHT: 150 beats per baseline, moderate ability, accelerations present, no decelerations. Reactive NST [place]: Quiescent ROM plus: Negative Assessment and plan 27-year-old -0-0-1 at 38 weeks 1 day gestation Leaking fluid without rupture of membranes: ROMplus again negative. Unlikely to be ruptured UA unremarkable last night. Continue twice weekly NSTs. Follow-up in clinic for routine care.
[2023-05-20 11:29] VITALS: BP 123/77; O2SAT 99
[2023-05-20 12:35] LABS: RUPTURE OF MEMBRANES PLUS NEGATIVE (NEGATIVE)
--- NOTE | 2023-05-20 12:49 | PROVIDER PROGRESS NOTE ---
- HPI Chief Complaint: Leakage of vaginal fluid Current : Vital Signs Temperature 97.7 F 05/20/23 11:21 Heart Rate 96 05/20/23 11:21 Respiratory Rate 17 05/20/23 11:21 Blood Pressure 123/77 05/20/23 11:21 O2 Saturation 99 05/20/23 11:21 Temperature 98.2 F 05/20/23 11:21 Heart Rate 96 05/20/23 11:21 Respiratory Rate 17 05/20/23 11:21 Blood Pressure 123/77 05/20/23 11:21 O2 Saturation 99 05/20/23 11:21 If not protocol: Oxygen Flow, liters/minute - Procedures OB Procedure Performed: NST Diagnosis/Indication for NST: Gestational Diabetes NST Procedure: NST Procedure Start Time 23:00 Stop Time 23:20 Service Date of procedure: 05/20/23 (Read 05/20/23) - Plan Plan: Patient is a 27-year-old -0-0-1 at 38 weeks 1 day gestation presenting to triage for leaking fluid. Has been wearing a panty liner with some moisture in it between changed. Still has movement, although less than last several weeks. Had some bloody show last night when checked, but nothing today. She denies headache, right upper quadrant pain, changes in vision. Contractions unchanged. Physical Exam Constitutional: alert, no acute distress, well hydrated, well developed, well nourished, appropriate dress. Cardiovascular: Regular rate and rhythm. Respiratory: no respiratory distress. Abdomen: nondistended, nontender, no guarding. Psych: affect and mood appropriate, normal interaction, good eye contact. FHT: 150 beats per baseline, moderate ability, accelerations present, no decelerations. Reactive NST [place]: Quiescent ROM plus: Negative Assessment and plan 27-year-old -0-0-1 at 38 weeks 1 day gestation Leaking fluid without rupture of membranes: ROMplus again negative. Unlikely to be ruptured UA unremarkable last night. Continue twice weekly NSTs. Follow-up in clinic for routine care. Metformin and test strips sent to pharmacy.
== END 2023-05-20 13:00 | disposition home or self-care (01) ==
LOC: WFO 11:15 → FBP 11:16 → WFO 11:16
PROVIDERS: ATTEND Obstetrics & Gynecology
DX: O99.891 Other specified diseases and conditions complicating pregnancy (principal); N89.8 Other specified noninflammatory disorders of vagina; O47.1 False labor at or after 37 completed weeks of gestation; O24.415 Gestational diabetes mellitus in pregnancy, controlled by oral hypoglycemic drugs; Z3A.38 38 weeks gestation of pregnancy
CPT/HCPCS: 59025; 84112; 99215

== ENCOUNTER 2023-05-22 11:59 | Outpatient (CLI) | payer MEDICAID ==
[2023-05-22 12:35] VITALS: BP 127/86
--- NOTE | 2023-05-22 14:12 | PROCEDURE REPORT ---
- HPI Diagnosis/Indication for NST: Gestational Diabetes Current EDU 06/03/23 Gestation 38 Weeks and 2 Days 4 Para 1 Vital Signs Temperature 98.2 F 05/22/23 12:13 Heart Rate 93 05/22/23 12:13 Respiratory Rate 05/22/23 12:13 Blood Pressure 127/86 H 05/22/23 12:13 Temperature 98.2 F 05/22/23 12:13 Heart Rate 93 05/22/23 12:13 Respiratory Rate 05/22/23 12:13 Blood Pressure 127/86 H 05/22/23 12:13 O2 Saturation If not protocol: Oxygen Flow, liters/minute - NST Procedure NST Procedure Start Date 05/22/23 Start Time 12:18 Stop Time 11:45 Vibroacoustic Stimulation Used No Patient States Movement Yes 38+3 gestational diabetes 140, moderate variability, +accels, no decels Reactive NST
== END 2023-05-22 13:20 | disposition home or self-care (01) ==
LOC: WFO 11:59 → FBP 12:01 → WFO 13:20
PROVIDERS: ATTEND Obstetrics & Gynecology Obstetrics
DX: O24.419 Gestational diabetes mellitus in pregnancy, unspecified control (principal); Z3A.38 38 weeks gestation of pregnancy
CPT/HCPCS: 59025

== ENCOUNTER 2023-05-23 05:41 | Inpatient (IN) | payer MEDICAID ==
[2023-05-23 07:14] LABS: RUPTURE OF MEMBRANES PLUS POSITIVE (NEGATIVE)
[2023-05-23] MEDS ORDERED: DEXTROSE 40% GEL 37.5 GM TUBE PO ONE ×2 (08:15)
[2023-05-23] MEDS ORDERED: METHYLERGONOVINE 0.2 MG/ML VIAL IM PRN (08:44)
[2023-05-23] MEDS ORDERED: LABETALOL 20 MG/4 ML SYRINGE IVP PRN ×3 (08:44)
[2023-05-23] MEDS ORDERED: miSOPROStoL 200 MCG TABLET BC PRN (08:44)
[2023-05-23] MEDS ORDERED: fentaNYL 100 MCG/2 ML VIAL IVP PRN ×2 (08:44→18:36)
[2023-05-23] MEDS ORDERED: lidocaine 1% 20 ML MDV ID PRN (08:44)
[2023-05-23] MEDS ORDERED: NIFEdipine 10 MG CAPSULE PO PRN (08:44)
[2023-05-23] MEDS ORDERED: hydrALAZINE INJ 20 MG/ML VIAL IVP PRN ×2 (08:44)
[2023-05-23] MEDS ORDERED: TRANEXAMIC ACID IN NACL 1,000 MG/100 ML BAG IV PRN (08:44)
[2023-05-23] MEDS ORDERED: OXYTOCIN/SODIUM CHLORIDE 500 ML IV PRN ×2 (08:44→18:01)
[2023-05-23] MEDS ORDERED: OXYTOCIN 10 UNIT/ML VIAL IM PRN (08:44)
[2023-05-23] MEDS ORDERED: miSOPROStoL 200 MCG TABLET PR PRN (08:44)
[2023-05-23] MEDS ORDERED: CARBOPROST TROMETHAMINE 250 MCG/ML AMP IM PRN (08:44)
--- NOTE | 2023-05-23 08:54 | HISTORY & PHYSICAL EXAMINATION ---
Admit History - Visit Reason Visit Reason: Membranes rupture - : 4 Parity: 1 : 2 miscarriage Care: positive: [facility] Risk/History: positive: Gestational diabetes Complications This : positive: Gestational diabetes (patient was on metformin for most of , was recently started on insulin. First dose was last night.) Smoking Status: Never smoker - Mother's Labs Mother's Blood Type: positive: A Mother's RH: positive: Positive GBS: positive: Group B Step Negative Rubella Status: positive: Non-immune - HPI Diagnosis/Indication for NST: Gestational Diabetes Vital Signs Temperature 98.2 F 05/23/23 06:34 Heart Rate 97 05/23/23 06:34 Respiratory Rate 16 05/23/23 06:34 Blood Pressure 144/96 H 05/23/23 06:34 Temperature 98.2 F 05/23/23 06:39 Heart Rate 99 05/23/23 06:39 Respiratory Rate 16 05/23/23 06:39 Blood Pressure 144/96 H 05/23/23 06:39 O2 Saturation 98 05/23/23 06:39 If not protocol: Oxygen Flow, liters/minute - NST Procedure NST Procedure Start Time 12:18 Stop Time 11:45 135, moderate variability, +accels, no decels Reactive NST Meds/Allgy - Home Medications Home Medications: Ambulatory Orders Medication Instructions Recorded Confirmed Sertraline HCl [Zoloft] 150 mg PO DAILY 11/01/18 03/30/21 Levothyroxine Sodium [Synthroid] 50 mcg PO DAILY 12/25/19 03/30/21 SUMAtriptan succinate [Sumatriptan 50 mg PO BID PRN MDD 2 12/25/19 03/30/21 Succinate] Topiramate [Topamax] 100 mg PO DAILY 12/25/19 03/30/21 Dextroamphetamine/Amphetamine 30 mg PO DAILY 03/30/21 03/30/21 [Adderall 30 mg Tablet] Dicyclomine [Bentyl] 10 mg PO DAILY 03/30/21 03/30/21 oxyCODONE/ACET 5/325 [Percocet 5 2 each PO Q4-6H #14 tablet 03/30/21 mg/325 mg] - Allergies Allergies/Adverse Reactions: Allergies Allergy/AdvReac Type Severity Reaction Status Date / Time ondansetron [From Zofran] Allergy Intermediate Emesis Verified 03/30/21 09:04 latex Allergy Unknown Verified 03/30/21 09:04 oxycodone [From Percocet] Allergy Emesis Verified 03/30/21 09:04 control pills Allergy Headache Uncoded 06/21/20 18:30 Review of Systems - Cardiovascular Cariovascular: denies: Chest pain - Gastrointestinal Gastrointestinal: denies: Abdominal pain - Genitourinary Genitourinary: denies: Dysuria - All Other Systems All Other Systems: reports: Reviewed and negative Physical - Abdominal Exam Vital Signs: Temp Pulse Resp BP Pulse Ox O2 Flow Rate 98.2 F 99 16 144/96 H 98 05/23/23 06:39 05/23/23 06:39 05/23/23 06:39 05/23/23 06:39 05/23/23 06:39 Contraction Frequency (min/apart): every 4-5 minutes Contraction Intensity: positive: Mild to moderate - Monitoring Strip Review: positive: Category I - Vaginal Exam Dilation (in cm): 4 Plan for Labor - Plan For Labor I expect patient to be DC'd or transferred within 96 hours.: Yes Plan for Labor: 1. gestational diabetes -patient on metformin transitioned to insulin last night -EFW 9-10 lbs by beside exam today, last growth scan in March. I discussed risks of macrosomia in the setting of gestational diabetes. Risk of shoulder dystocia discussed. Risks, benefits, and alternatives discussed included primary section. After discussion patient would like to labor. Discussed if no progression low threshold for primary delivery. -insulin drip -GBS negative -rubella non-immune
[2023-05-23 08:59] LABS: BASOPHILS % (AUTO) 0.3 %; EOSINOPHILS # (AUTO) 0.1 10^3/uL (0.0-0.7); EOSINOPHILS % (AUTO) 1.4 %; HGB - HEMOGLOBIN 12.8 g/dL (12.0-16.0); LYMPHOCYTES # (AUTO) 1.6 10^3/uL (1.5-3.5); LYMPHOCYTES % (AUTO) 20.6 %; MEAN CORPUSCULAR HEMOGLOBIN 30.5 pg (27.0-31.0); MEAN CORPUSCULAR HGB CONC 32.8 g/dL (32.0-36.0); MEAN CORPUSCULAR VOLUME 92.9 fL (81.0-99.0); MEAN PLATELET VOLUME 10.6 fL (7.9-10.8); MONOCYTES # (AUTO) 0.6 10^3/uL (0.0-1.0); MONOCYTES % (AUTO) 7.6 %; NEUTROPHILS # (AUTO) 5.5 10^3/uL (1.5-6.6); NEUTROPHILS % (AUTO) 69.3 %; PLT - PLATELET COUNT 218 10^3/uL (130-450); RED CELL DISTRIBUTION WIDTH 14.4 % (12.0-15.0); WHITE BLOOD COUNT 7.9 x10^3/uL (4.8-10.8)
[2023-05-23] MEDS ORDERED: INSULIN REGULAR IN 0.9 % NS 100 UNIT/100 ML BAG IV SCH (09:00)
[2023-05-23] MEDS ORDERED: DEXTROSE 5% 1,000 ML IV SCH (09:00)
[2023-05-23] MEDS ORDERED: DEXTROSE 40% GEL 37.5 GM TUBE PO PRN ×2 (09:15)
[2023-05-23 09:19] LABS: ALBUMIN 3.2 g/dL (3.2-5.5); BILIRUBIN,TOTAL 0.3 mg/dL (0.2-1.0); CALCIUM 8.8 mg/dL (8.5-10.3); CREATININE 0.4 mg/dL (0.6-1.3); POTASSIUM 3.7 mmol/L (3.5-4.5); TOTAL PROTEIN 6.5 g/dL (6.4-8.9)
--- OUTSIDE RECORDS SUMMARY | 2023-05-23 09:21 | EXTERNAL MEDICAL SUMMARY RPT | Continuity of Care Document ---
Author Name Unknown Address [address] [place] [address] Phone Organization [facility] Address [address] [place] [address] Phone Care Team Providers Care Food Safety Auditor Name Role Phone Unavailable Unavailable Unavailable Dipesh Gomez Unavailable Unavailable Misti Leiva Unavailable Unavaila Zulay Bang Unavailable Unavailable Elian Benitez, Woody Unavailable Unavailable Araceli Pretty Do Unavailable Unavailable Marlyn Pfs Detail Supervisor Iii, Sharif Unavailabl e Unavailable Morales Morris, Rosanna Unavailable Unavailable Morales Morris, Rosanna Unavailable Unavailable Leonidas, Provider Unavailable Unavailable Morales Morris, Rosanna Unavailable Unavailable Marry Wilkins, Elizabeth Unavailable Unavailable Medications date description facility 2023-05-07 00:00 insulin nph isoph u-100 human A 2023-05-07 00:00 insulin nph isoph u-100 human A 2023-05-07 00:00 insulin nph isoph u-100 human A 2023-05-07 00:00 insulin nph isoph u-100 human A 2023-05-07 00:00 insulin regular human All 2023-05-07 00:00 insulin regular human All 2023-05-07 00:00 insulin regular human [facility] 2023-05-07 00:00 insulin regular human All 2023-05-07 00:00 insulin nph isoph u-100 human A 2023-05-07 00:00 insulin nph isoph u-100 human A 2023-05-07 00:00 insulin nph isoph u-100 human A 2023-05-07 00:00 insulin nph isoph u-100 human A 2023-05-08 00:00 insulin nph isoph u-100 human A 2023-05-11 00:00 insulin nph isoph u-100 human A 2023-05-16 00:00 insulin nph isoph u-100 human A 2023-05-18 00:00 insulin nph isoph u-100 human A 2023-05-20 00:00 insulin nph isoph u-100 human A 2023-05-21 00:00 insulin nph isoph u-100 human A 2023-05-20 00:00 insulin syringe-needle u-100 Al l 2023-05-07 00:00 insulin nph isoph u-100 human A 2023-05-07 00:00 insulin nph isoph u-100 human A 2023-05-07 00:00 insulin nph isoph u-100 human A 2023-05-07 00:00 insulin nph isoph u-100 human A 2023-04-03 00:00 nystatin-triamcinolone All 2023-04-03 00:00 nystatin-triamcinolone All 2023-04-03 00:00 nystatin-triamcinolone All 2023-04-03 00:00 nystatin-triamcinolone All 2023-04-03 00:00 nystatin-triamcinolone All 2023-04-03 00:00 nystatin-triamcinolone All 2023-04-03 00:00 nystatin-triamcinolone All 2023-04-03 00:00 nystatin-triamcinolone All 2023-04-03 00:00 nystatin-triamcinolone All 2023-04-03 00:00 nystatin-triamcinolone All 2023-04-03 00:00 nystatin-triamcinolone All 2023-04-03 00:00 nystatin-triamcinolone All 2023-04-03 00:00 nystatin-triamcinolone All 2023-04-03 00:00 nystatin-triamcinolone All 2023-05-07 00:00 insulin regular human All 2023-05-07 00:00 insulin regular human All 2023-05-07 00:00 insulin regular human All 2023-05-07 00:00 insulin regular human All 2023-05-07 00:00 insulin nph isoph u-100 human A 2023-05-07 00:00 insulin nph isoph u-100 human A 2023-05-07 00:00 insulin nph isoph u-100 human A 2023-05-07 00:00 insulin nph isoph u-100 human A 2023-05-08 00:00 insulin nph isoph u-100 human A 2023-05-11 00:00 insulin nph isoph u-100 human A 2023-05-16 00:00 insulin nph isoph u-100 human A 2023-05-18 00:00 insulin nph isoph u-100 human A 2023-05-20 00:00 insulin nph isoph u-100 human A 2023-05-21 00:00 insulin nph isoph u-100 human A 2023-03-09 00:00 pnv cmb#95-ferrous fumarate-fa All 2023-03-11 00:00 pnv cmb#95-ferrous fumarate-fa All 2023-03-13 00:00 pnv cmb#95-ferrous fumarate-fa All 2023-03-26 00:00 pnv cmb#95-ferrous fumarate-fa All 2023-04-04 00:00 pnv cmb#95-ferrous fumarate-fa All 2023-04-05 00:00 pnv cmb#95-ferrous fumarate-fa All 2023-04-06 00:00 pnv cmb#95-ferrous fumarate-fa All 2023-04-09 00:00 pnv cmb#95-ferrous fumarate-fa All 2023-04-09 00:00 pnv cmb#95-ferrous fumarate-fa All 2023-04-11 00:00 pnv cmb#95-ferrous fumarate-fa All 2023-04-16 00:00 pnv cmb#95-ferrous fumarate-fa All 2023-04-17 00:00 pnv cmb#95-ferrous fumarate-fa All 2023-05-08 00:00 pnv cmb#95-ferrous fumarate-fa All 2023-05-11 00:00 pnv cmb#95-ferrous fumarate-fa All 2023-05-16 00:00 pnv cmb#95-ferrous fumarate-fa All 2023-05-18 00:00 pnv cmb#95-ferrous fumarate-fa All 2023-05-20 00:00 pnv cmb#95-ferrous fumarate-fa All 2023-05-21 00:00 pnv cmb#95-ferrous fumarate-fa All 2023-05-20 00:00 blood sugar diagnostic All 2023-05-20 00:00 blood sugar diagnostic All 2023-05-07 00:00 insulin regular human All 2023-05-07 00:00 insulin regular human All 2023-05-07 00:00 insulin regular human All 2023-05-07 00:00 insulin regular human All 2023-05-07 00:00 insulin nph isoph u-100 human A 2023-05-07 00:00 insulin nph isoph u-100 human A 2023-05-07 00:00 insulin nph isoph u-100 human A 2023-05-07 00:00 insulin nph isoph u-100 human A 2023-05-08 00:00 insulin nph isoph u-100 human A 2023-05-11 00:00 insulin nph isoph u-100 human A 2023-05-16 00:00 insulin nph isoph u-100 human A 2023-05-18 00:00 insulin nph isoph u-100 human A 2023-05-20 00:00 insulin nph isoph u-100 human A 2023-05-21 00:00 insulin nph isoph u-100 human A 2023-03-09 00:00 metformin All 2023-03-09 00:00 metformin All 2023-03-09 00:00 metformin All 2023-03-09 00:00 metformin All 2023-03-09 00:00 metformin All 2023-03-09 00:00 metformin All 2023-03-09 00:00 metformin All 2023-03-09 00:00 metformin All 2023-03-09 00:00 metformin All 2023-04-03 00:00 metformin All 2023-04-03 00:00 metformin All 2023-04-03 00:00 metformin All 2023-04-03 00:00 metformin All 2023-04-03 00:00 metformin All 2023-04-03 00:00 metformin All 2023-04-03 00:00 metformin All 2023-05-20 00:00 metformin All 2023-03-09 00:00 metformin All 2023-03-09 00:00 metformin All 2023-03-09 00:00 metformin All 2023-03-09 00:00 metformin All 2023-03-09 00:00 metformin All 2023-03-09 00:00 metformin All 2023-03-09 00:00 metformin All 2023-03-09 00:00 metformin All 2023-03-09 00:00 metformin All 2023-04-03 00:00 metformin All 2023-04-03 00:00 metformin All 2023-04-03 00:00 metformin All 2023-04-03 00:00 metformin All 2023-04-03 00:00 metformin All 2023-04-03 00:00 metformin All 2023-04-03 00:00 metformin All 2023-05-20 00:00 metformin All 2023-05-07 00:00 insulin nph isoph u-100 human A 2023-05-07 00:00 insulin nph isoph u-100 human A 2023-05-07 00:00 insulin nph isoph u-100 human A 2023-05-07 00:00 insulin nph isoph u-100 human A 2023-05-07 00:00 insulin nph isoph u-100 human A 2023-05-07 00:00 insulin nph isoph u-100 human A 2023-05-07 00:00 insulin nph isoph u-100 human A 2023-05-07 00:00 insulin nph isoph u-100 human A 2023-05-08 00:00 insulin nph isoph u-100 human A 2023-05-11 00:00 insulin nph isoph u-100 human A 2023-05-16 00:00 insulin nph isoph u-100 human A 2023-05-18 00:00 insulin nph isoph u-100 human A 2023-05-20 00:00 insulin nph isoph u-100 human A 2023-05-21 00:00 insulin nph isoph u-100 human A 2023-05-07 00:00 insulin regular human All 2023-05-07 00:00 insulin regular human All 2023-05-07 00:00 insulin regular human All 2023-05-07 00:00 insulin regular human All 2023-03-09 00:00 pnv cmb#95-ferrous fumarate-fa All 2023-03-11 00:00 pnv cmb#95-ferrous fumarate-fa All 2023-03-13 00:00 pnv cmb#95-ferrous fumarate-fa All 2023-03-26 00:00 pnv cmb#95-ferrous fumarate-fa All 2023-04-04 00:00 pnv cmb#95-ferrous fumarate-fa All 2023-04-05 00:00 pnv cmb#95-ferrous fumarate-fa All 2023-04-06 00:00 pnv cmb#95-ferrous fumarate-fa All 2023-04-09 00:00 pnv cmb#95-ferrous fumarate-fa All 2023-04-09 00:00 pnv cmb#95-ferrous fumarate-fa All 2023-04-11 00:00 pnv cmb#95-ferrous fumarate-fa All 2023-04-16 00:00 pnv cmb#95-ferrous fumarate-fa All 2023-04-17 00:00 pnv cmb#95-ferrous fumarate-fa All 2023-05-08 00:00 pnv cmb#95-ferrous fumarate-fa All 2023-05-11 00:00 pnv cmb#95-ferrous fumarate-fa All 2023-05-16 00:00 pnv cmb#95-ferrous fumarate-fa All 2023-05-18 00:00 pnv cmb#95-ferrous fumarate-fa All 2023-05-20 00:00 pnv cmb#95-ferrous fumarate-fa All 2023-05-21 00:00 pnv cmb#95-ferrous fumarate-fa All 2023-03-01 00:00 Drug or medicament (substance) [facility] 2023-05-20 00:00 insulin syringe-needle u-100 Al l 2023-04-03 00:00 nystatin-triamcinolone All 2023-04-03 00:00 nystatin-triamcinolone All 2023-04-03 00:00 nystatin-triamcinolone All 2023-04-03 00:00 nystatin-triamcinolone All 2023-04-03 00:00 nystatin-triamcinolone All 2023-04-03 00:00 nystatin-triamcinolone All 2023-04-03 00:00 nystatin-triamcinolone All 2023-03-09 00:00 metformin All 2023-03-09 00:00 metformin All 2023-03-09 00:00 metformin All 2023-03-09 00:00 metformin All 2023-03-09 00:00 metformin All 2023-03-09 00:00 metformin All 2023-03-09 00:00 metformin All 2023-03-09 00:00 metformin All 2023-03-09 00:00 metformin All 2023-04-03 00:00 metformin All 2023-04-03 00:00 metformin All 2023-04-03 00:00 metformin All 2023-04-03 00:00 metformin All 2023-04-03 00:00 metformin All 2023-04-03 00:00 metformin All 2023-04-03 00:00 metformin All 2023-05-20 00:00 metformin All 2023-03-09 00:00 pnv cmb#95-ferrous fumarate-fa All 2023-03-11 00:00 pnv cmb#95-ferrous fumarate-fa All 2023-03-13 00:00 pnv cmb#95-ferrous fumarate-fa All 2023-03-26 00:00 pnv cmb#95-ferrous fumarate-fa All 2023-04-04 00:00 pnv cmb#95-ferrous fumarate-fa All 2023-04-05 00:00 pnv cmb#95-ferrous fumarate-fa All 2023-04-06 00:00 pnv cmb#95-ferrous fumarate-fa All 2023-04-09 00:00 pnv cmb#95-ferrous fumarate-fa All 2023-04-09 00:00 pnv cmb#95-ferrous fumarate-fa All 2023-04-11 00:00 pnv cmb#95-ferrous fumarate-fa All 2023-04-16 00:00 pnv cmb#95-ferrous fumarate-fa All 2023-04-17 00:00 pnv cmb#95-ferrous fumarate-fa All 2023-05-08 00:00 pnv cmb#95-ferrous fumarate-fa All 2023-05-11 00:00 pnv cmb#95-ferrous fumarate-fa All 2023-05-16 00:00 pnv cmb#95-ferrous fumarate-fa All 2023-05-18 00:00 pnv cmb#95-ferrous fumarate-fa All 2023-05-20 00:00 pnv cmb#95-ferrous fumarate-fa All 2023-05-21 00:00 pnv cmb#95-ferrous fumarate-fa All 2023-03-09 00:00 metformin All 2023-03-09 00:00 metformin All 2023-03-09 00:00 metformin All 2023-03-09 00:00 metformin All 2023-03-09 00:00 metformin All 2023-03-09 00:00 metformin All 2023-03-09 00:00 metformin All 2023-03-09 00:00 metformin All 2023-03-09 00:00 metformin All 2023-04-03 00:00 metformin All 2023-04-03 00:00 metformin All 2023-04-03 00:00 metformin All 2023-04-03 00:00 metformin All 2023-04-03 00:00 metformin All 2023-04-03 00:00 metformin All 2023-04-03 00:00 metformin All 2023-05-20 00:00 metformin All 2023-04-03 00:00 nystatin-triamcinolone All 2023-04-03 00:00 nystatin-triamcinolone All 2023-04-03 00:00 nystatin-triamcinolone All 2023-04-03 00:00 nystatin-triamcinolone All 2023-04-03 00:00 nystatin-triamcinolone All 2023-04-03 00:00 nystatin-triamcinolone All 2023-04-03 00:00 nystatin-triamcinolone All 2023-05-20 00:00 blood sugar diagnostic All 2023-05-20 00:00 insulin syringe-needle u-100 Al l 2023-05-08 00:00 calcium carbonate All 2023-05-11 00:00 calcium carbonate All 2023-05-16 00:00 calcium carbonate All 2023-05-18 00:00 calcium carbonate All 2023-05-20 00:00 calcium carbonate All 2023-05-21 00:00 calcium carbonate All 2023-05-08 00:00 insulin regular human All 2023-05-11 00:00 insulin regular human All 2023-05-16 00:00 insulin regular human All 2023-05-18 00:00 insulin regular human All 2023-05-20 00:00 insulin regular human All 2023-05-21 00:00 insulin regular human All Problems date description facility 2023-03-09 00:00 Gestational diabetes mellitus A 2023-03-09 00:00 Gestational diabetes mellitus A 2023-03-09 00:00 Gestational diabetes mellitus A 2023-03-09 00:00 Gestational diabetes mellitus A 2023-03-09 00:00 Gestational diabetes mellitus A 2023-03-09 00:00 Gestational diabetes mellitus A 2023-03-09 00:00 Gestational diabetes mellitus A 2023-03-09 00:00 Gestational diabetes mellitus A 2023-03-09 00:00 Gestational diabetes mellitus A 2023-03-09 00:00 Malabsorption of glucose All 2023-03-09 00:00 Malabsorption of glucose All 2023-03-09 00:00 Malabsorption of glucose All 2023-03-09 00:00 Malabsorption of glucose All 2023-03-09 00:00 Malabsorption of glucose All 2023-03-09 00:00 Malabsorption of glucose All 2023-03-09 00:00 Malabsorption of glucose All 2023-03-09 00:00 Malabsorption of glucose All 2023-03-09 00:00 Malabsorption of glucose All 2023-03-09 00:00 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 All 2023-03-09 00:00 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 All 2023-03-09 00:00 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 All 2023-03-09 00:00 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 All 2023-03-09 00:00 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 All 2023-03-09 00:00 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 All 2023-03-09 00:00 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 All 2023-03-09 00:00 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 All 2023-03-09 00:00 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 All 2023-03-09 00:00 Rubella non-immune All 2023-03-09 00:00 Rubella non-immune All 2023-03-09 00:00 Rubella non-immune All 2023-03-09 00:00 Rubella non-immune All 2023-03-09 00:00 Rubella non-immune All 2023-03-09 00:00 Rubella non-immune All 2023-03-09 00:00 Rubella non-immune All 2023-03-09 00:00 Rubella non-immune All 2023-03-09 00:00 Rubella non-immune All 2023-03-09 00:00 Uterine size for dates discrepa ncy All 2023-03-09 00:00 Uterine size for dates discrepa ncy All 2023-03-09 00:00 Uterine size for dates discrepa ncy All 2023-03-09 00:00 Uterine size for dates discrepa ncy All 2023-03-09 00:00 Uterine size for dates discrepa ncy All 2023-03-09 00:00 Uterine size for dates discrepa ncy All 2023-03-09 00:00 Uterine size for dates discrepa ncy All 2023-03-09 00:00 Uterine size for dates discrepa ncy All 2023-03-09 00:00 Uterine size for dates discrepa ncy All 2023-03-09 00:00 High risk All 2023-03-09 00:00 High risk All 2023-03-09 00:00 High risk All 2023-03-09 00:00 High risk All 2023-03-09 00:00 High risk All 2023-03-09 00:00 High risk All 2023-03-09 00:00 High risk All 2023-03-09 00:00 High risk All 2023-03-09 00:00 Abnormal glucose davida erance complicating , childbirth, or the puerperium, unspecified as to episode of care or not applicable All 2023-03-09 00:00 Abnormal glucose davida erance complicating , childbirth, or the puerperium, unspecified as to episode of care or not applicable All 2023-03-09 00:00 Abnormal glucose davida erance complicating , childbirth, or the puerperium, unspecified as to episode of care or not applicable All 2023-03-09 00:00 Abnormal glucose davida erance complicating , childbirth, or the puerperium, unspecified as to episode of care or not applicable All 2023-03-09 00:00 Abnormal glucose davida erance complicating , childbirth, or the puerperium, unspecified as to episode of care or not applicable All 2023-03-09 00:00 Abnormal glucose davida erance complicating , childbirth, or the puerperium, unspecified as to episode of care or not applicable All 2023-03-09 00:00 Abnormal glucose davida erance complicating , childbirth, or the puerperium, unspecified as to episode of care or not applicable All 2023-03-09 00:00 Abnormal glucose davida erance complicating , childbirth, or the puerperium, unspecified as to episode of care or not applicable All 2023-03-09 00:00 Abnormal glucose davida erance complicating , childbirth, or the puerperium, unspecified as to episode of care or not applicable All 2023-03-09 00:00 Uterine size date di screpancy, antepartum condition or complication All 2023-03-09 00:00 Uterine size date di screpancy, antepartum condition or complication All 2023-03-09 00:00 Uterine size date di screpancy, antepartum condition or complication All 2023-03-09 00:00 Uterine size date di screpancy, antepartum condition or complication All 2023-03-09 00:00 Uterine size date di screpancy, antepartum condition or complication All 2023-03-09 00:00 Uterine size date di screpancy, antepartum condition or complication All 2023-03-09 00:00 Uterine size date di screpancy, antepartum condition or complication All 2023-03-09 00:00 Uterine size date di screpancy, antepartum condition or complication All 2023-03-09 00:00 Uterine size date di screpancy, antepartum condition or complication All 2023-03-09 00:00 Other disorders of intestinal c arbohydrate absorption All 2023-03-09 00:00 Other disorders of intestinal c arbohydrate absorption All 2023-03-09 00:00 Other disorders of intestinal c arbohydrate absorption All 2023-03-09 00:00 Other disorders of intestinal c arbohydrate absorption All 2023-03-09 00:00 Other disorders of intestinal c arbohydrate absorption All 2023-03-09 00:00 Other disorders of intestinal c arbohydrate absorption All 2023-03-09 00:00 Other disorders of intestinal c arbohydrate absorption All 2023-03-09 00:00 Other disorders of intestinal c arbohydrate absorption All 2023-03-09 00:00 Other disorders of intestinal c arbohydrate absorption All 2023-03-09 00:00 Supervision of other high risk pregnancies, third trimester All 2023-03-09 00:00 Supervision of other high risk pregnancies, third trimester All 2023-03-09 00:00 Supervision of other high risk pregnancies, third trimester All 2023-03-09 00:00 Supervision of other high risk pregnancies, third trimester All 2023-03-09 00:00 Supervision of other high risk pregnancies, third trimester All 2023-03-09 00:00 Supervision of other high risk pregnancies, third trimester All 2023-03-09 00:00 Supervision of other high risk pregnancies, third trimester All 2023-03-09 00:00 Supervision of other high risk pregnancies, third trimester All 2023-03-09 00:00 Gestational diabetes mellitus in , unspecified control All 2023-03-09 00:00 Gestational diabetes mellitus in , unspecified control All 2023-03-09 00:00 Gestational diabetes mellitus in , unspecified control All 2023-03-09 00:00 Gestational diabetes mellitus in , unspecified control All 2023-03-09 00:00 Gestational diabetes mellitus in , unspecified control All 2023-03-09 00:00 Gestational diabetes mellitus in , unspecified control All 2023-03-09 00:00 Gestational diabetes mellitus in , unspecified control All 2023-03-09 00:00 Gestational diabetes mellitus in , unspecified control All 2023-03-09 00:00 Gestational diabetes mellitus in , unspecified control All 2023-03-09 00:00 Uterine size-date discrepancy, second trimester All 2023-03-09 00:00 Uterine size-date discrepancy, second trimester All 2023-03-09 00:00 Uterine size-date discrepancy, second trimester All 2023-03-09 00:00 Uterine size-date discrepancy, second trimester All 2023-03-09 00:00 Uterine size-date discrepancy, second trimester All 2023-03-09 00:00 Uterine size-date discrepancy, second trimester All 2023-03-09 00:00 Uterine size-date discrepancy, second trimester All 2023-03-09 00:00 Uterine size-date discrepancy, second trimester All 2023-03-09 00:00 Uterine size-date discrepancy, second trimester All 2023-03-09 00:00 Other high-risk All 2023-03-09 00:00 Other high-risk All 2023-03-09 00:00 Other high-risk All 2023-03-09 00:00 Other high-risk All 2023-03-09 00:00 Other high-risk All 2023-03-09 00:00 Other high-risk All 2023-03-09 00:00 Other high-risk All 2023-03-09 00:00 Other high-risk All 2023-03-09 00:00 Other specified conditions infl uencing health status All 2023-03-09 00:00 Other specified conditions infl uencing health status All 2023-03-09 00:00 Other specified conditions infl uencing health status All 2023-03-09 00:00 Other specified conditions infl uencing health status All 2023-03-09 00:00 Other specified conditions infl uencing health status All 2023-03-09 00:00 Other specified conditions infl uencing health status All 2023-03-09 00:00 Other specified conditions infl uencing health status All 2023-03-09 00:00 Other specified conditions infl uencing health status All 2023-03-09 00:00 Other specified conditions infl uencing health status All 2023-03-09 00:00 Other specified health status A ll 2023-03-09 00:00 Other specified health status A ll 2023-03-09 00:00 Other specified health status A ll 2023-03-09 00:00 Other specified health status A ll 2023-03-09 00:00 Other specified health status A ll 2023-03-09 00:00 Other specified health status A ll 2023-03-09 00:00 Other specified health status A ll 2023-03-09 00:00 Other specified health status A ll 2023-03-09 00:00 Other specified health status A 2023-04-03 00:00 Vaginal irritation All 2023-04-03 00:00 Vaginal irritation All 2023-04-03 00:00 Vaginal irritation All 2023-04-03 00:00 Vaginal irritation All 2023-04-03 00:00 Vaginal irritation All 2023-04-03 00:00 Vaginal irritation All 2023-04-03 00:00 Vaginal irritation All 2023-04-03 00:00 Thyroid function tests abnormal All 2023-04-03 00:00 Thyroid function tests abnormal All 2023-04-03 00:00 Thyroid function tests abnormal All 2023-04-03 00:00 Thyroid function tests abnormal All 2023-04-03 00:00 Thyroid function tests abnormal All 2023-04-03 00:00 Thyroid function tests abnormal All 2023-04-03 00:00 Thyroid function tests abnormal All 2023-04-03 00:00 Gestational diabetes mellitus c lass A2 All 2023-04-03 00:00 Gestational diabetes mellitus c lass A2 All 2023-04-03 00:00 Gestational diabetes mellitus c lass A2 All 2023-04-03 00:00 Gestational diabetes mellitus c lass A2 All 2023-04-03 00:00 Gestational diabetes mellitus c lass A2 All 2023-04-03 00:00 Gestational diabetes mellitus c lass A2 All 2023-04-03 00:00 Unspecified noninflammatory dis order of vagina All 2023-04-03 00:00 Unspecified noninflammatory dis order of vagina All 2023-04-03 00:00 Unspecified noninflammatory dis order of vagina All 2023-04-03 00:00 Unspecified noninflammatory dis order of vagina All 2023-04-03 00:00 Unspecified noninflammatory dis order of vagina All 2023-04-03 00:00 Unspecified noninflammatory dis order of vagina All 2023-04-03 00:00 Unspecified noninflammatory dis order of vagina All 2023-04-03 00:00 Abnormal glucose davida erance complicating , childbirth, or the puerperium, unspecified as to episode of care or not applicable All 2023-04-03 00:00 Abnormal glucose davida erance complicating , childbirth, or the puerperium, unspecified as to episode of care or not applicable All 2023-04-03 00:00 Abnormal glucose davida erance complicating , childbirth, or the puerperium, unspecified as to episode of care or not applicable All 2023-04-03 00:00 Abnormal glucose davida erance complicating , childbirth, or the puerperium, unspecified as to episode of care or not applicable All 2023-04-03 00:00 Abnormal glucose davida erance complicating , childbirth, or the puerperium, unspecified as to episode of care or not applicable All 2023-04-03 00:00 Abnormal glucose davida erance complicating , childbirth, or the puerperium, unspecified as to episode of care or not applicable All 2023-04-03 00:00 Nonspecific abnormal results of function study of thyroid All 2023-04-03 00:00 Nonspecific abnormal results of function study of thyroid All 2023-04-03 00:00 Nonspecific abnormal results of function study of thyroid All 2023-04-03 00:00 Nonspecific abnormal results of function study of thyroid All 2023-04-03 00:00 Nonspecific abnormal results of function study of thyroid All 2023-04-03 00:00 Nonspecific abnormal results of function study of thyroid All 2023-04-03 00:00 Nonspecific abnormal results of function study of thyroid All 2023-04-03 00:00 Other specified noninflammatory disorders of vagina All 2023-04-03 00:00 Other specified noninflammatory disorders of vagina All 2023-04-03 00:00 Other specified noninflammatory disorders of vagina All 2023-04-03 00:00 Other specified noninflammatory disorders of vagina All 2023-04-03 00:00 Other specified noninflammatory disorders of vagina All 2023-04-03 00:00 Other specified noninflammatory disorders of vagina All 2023-04-03 00:00 Other specified noninflammatory disorders of vagina All 2023-04-03 00:00 Gestational diabetes mellitus in , insulin controlled All 2023-04-03 00:00 Gestational diabetes mellitus in , insulin controlled All 2023-04-03 00:00 Gestational diabetes mellitus in , insulin controlled All 2023-04-03 00:00 Gestational diabetes mellitus in , insulin controlled All 2023-04-03 00:00 Gestational diabetes mellitus in , insulin controlled All 2023-04-03 00:00 Gestational diabetes mellitus in , insulin controlled All 2023-04-03 00:00 Abnormal results of thyroid fun ction studies All 2023-04-03 00:00 Abnormal results of thyroid fun ction studies All 2023-04-03 00:00 Abnormal results of thyroid fun ction studies All 2023-04-03 00:00 Abnormal results of thyroid fun ction studies All 2023-04-03 00:00 Abnormal results of thyroid fun ction studies All 2023-04-03 00:00 Abnormal results of thyroid fun ction studies All 2023-04-03 00:00 Abnormal results of thyroid fun ction studies All 2023-04-06 00:00 Tachycardia All 2023-04-06 00:00 Tachycardia All 2023-04-06 00:00 Tachycardia All 2023-04-06 00:00 Tachycardia All 2023-04-06 00:00 Tachycardia All 2023-04-06 00:00 Tachycardia All 2023-04-06 00:00 Hypertensive disorder All 2023-04-06 00:00 Hypertensive disorder All 2023-04-06 00:00 Hypertensive disorder All 2023-04-06 00:00 Hypertensive disorder All 2023-04-06 00:00 Hypertensive disorder All 2023-04-06 00:00 Hypertensive disorder All 2023-04-06 00:00 Unspecified essential hypertens ion All 2023-04-06 00:00 Unspecified essential hypertens ion All 2023-04-06 00:00 Unspecified essential hypertens ion All 2023-04-06 00:00 Unspecified essential hypertens ion All 2023-04-06 00:00 Unspecified essential hypertens ion All 2023-04-06 00:00 Unspecified essential hypertens ion All 2023-04-06 00:00 Obesity All 2023-04-06 00:00 Obesity All 2023-04-06 00:00 Obesity All 2023-04-06 00:00 Obesity All 2023-04-06 00:00 Obesity All 2023-04-06 00:00 Obesity All 2023-04-06 00:00 Irregular uterine contractions All 2023-04-06 00:00 Irregular uterine contractions All 2023-04-06 00:00 Irregular uterine contractions All 2023-04-06 00:00 Irregular uterine contractions All 2023-04-06 00:00 Irregular uterine contractions All 2023-04-06 00:00 Irregular uterine contractions All 2023-04-06 00:00 Unspecified abnormal ity of labor, unspecified as to episode of care or not applicable All 2023-04-06 00:00 Unspecified abnormal ity of labor, unspecified as to episode of care or not applicable All 2023-04-06 00:00 Unspecified abnormal ity of labor, unspecified as to episode of care or not applicable All 2023-04-06 00:00 Unspecified abnormal ity of labor, unspecified as to episode of care or not applicable All 2023-04-06 00:00 Unspecified abnormal ity of labor, unspecified as to episode of care or not applicable All 2023-04-06 00:00 Unspecified abnormal ity of labor, unspecified as to episode of care or not applicable All 2023-04-06 00:00 Obesity, unspecified All 2023-04-06 00:00 Obesity, unspecified All 2023-04-06 00:00 Obesity, unspecified All 2023-04-06 00:00 Obesity, unspecified All 2023-04-06 00:00 Obesity, unspecified All 2023-04-06 00:00 Obesity, unspecified All 2023-04-06 00:00 Essential (primary) hypertensio n All 2023-04-06 00:00 Essential (primary) hypertensio n All 2023-04-06 00:00 Essential (primary) hypertensio n All 2023-04-06 00:00 Essential (primary) hypertensio n All 2023-04-06 00:00 Essential (primary) hypertensio n All 2023-04-06 00:00 Essential (primary) hypertensio n All 2023-04-06 00:00 Other abnormalities of forces o f labor All 2023-04-06 00:00 Other abnormalities of forces o f labor All 2023-04-06 00:00 Other abnormalities of forces o f labor All 2023-04-06 00:00 Other abnormalities of forces o f labor All 2023-04-06 00:00 Other abnormalities of forces o f labor All 2023-04-06 00:00 Other abnormalities of forces o f labor All 2023-04-06 00:00 Tachycardia, unspecified All 2023-04-06 00:00 Tachycardia, unspecified All 2023-04-06 00:00 Tachycardia, unspecified All 2023-04-06 00:00 Tachycardia, unspecified All 2023-04-06 00:00 Tachycardia, unspecified All 2023-04-06 00:00 Tachycardia, unspecified All 2023-04-13 00:00 Gestation period, 33 weeks All 2023-04-13 00:00 Gestation period, 33 weeks All 2023-04-13 00:00 Gestation period, 33 weeks All 2023-04-13 00:00 Gestation period, 33 weeks All 2023-04-13 00:00 33 weeks gestation of All 2023-04-13 00:00 33 weeks gestation of All 2023-04-13 00:00 33 weeks gestation of All 2023-04-13 00:00 33 weeks gestation of All 2023-05-07 00:00 screening All 2023-05-07 00:00 screening All 2023-05-07 00:00 screening All 2023-05-07 00:00 screening All 2023-05-07 00:00 Encounter for screeni ng for Streptococcus B All 2023-05-07 00:00 Encounter for screeni ng for Streptococcus B All 2023-05-07 00:00 Encounter for screeni ng for Streptococcus B All 2023-05-07 00:00 Encounter for screeni ng for Streptococcus B All 2023-05-18 00:00 Gestation period greater than o r equal to 37 weeks All 2023-05-18 00:00 37 or more completed weeks of g estation All 2023-05-18 00:00 37 weeks gestation of All Procedures date description facility 2023-03-09 00:00 Visit Code Hold All 2023-03-09 00:00 Visit Code Hold All 2023-03-09 00:00 Visit Code Hold All 2023-03-09 00:00 Visit Code Hold All 2023-03-09 00:00 Visit Code Hold All 2023-03-09 00:00 Visit Code Hold All 2023-03-09 00:00 Visit Code Hold All 2023-03-09 00:00 Visit Code Hold All 2023-03-09 00:00 Visit Code Hold All 2023-04-03 00:00 Visit Code Hold All 2023-04-03 00:00 Visit Code Hold All 2023-04-03 00:00 Visit Code Hold All 2023-04-03 00:00 Visit Code Hold All 2023-04-03 00:00 Visit Code Hold All 2023-04-03 00:00 Visit Code Hold All 2023-04-03 00:00 Visit Code Hold All 2023-04-06 00:00 Visit Code Hold All 2023-04-06 00:00 Visit Code Hold All 2023-04-06 00:00 Visit Code Hold All 2023-04-06 00:00 Visit Code Hold All 2023-04-06 00:00 Visit Code Hold All 2023-04-06 00:00 Visit Code Hold All 2023-04-13 00:00 Visit Code Hold All 2023-04-13 00:00 Visit Code Hold All 2023-04-13 00:00 Visit Code Hold All 2023-04-13 00:00 Visit Code Hold All 2023-05-07 00:00 Visit Code Hold All 2023-05-07 00:00 Visit Code Hold All 2023-05-07 00:00 Visit Code Hold All 2023-05-07 00:00 Visit Code Hold All 2023-05-18 00:00 Visit Code Hold All 2023-05-18 00:00 Visit Code Hold All 2023-03-09 00:00 OB US FOLLOW-UP All 2023-03-09 00:00 OB US FOLLOW-UP All 2023-03-09 00:00 OB US FOLLOW-UP All 2023-03-09 00:00 OB US FOLLOW-UP All 2023-03-09 00:00 OB US FOLLOW-UP All 2023-03-09 00:00 OB US FOLLOW-UP All 2023-03-09 00:00 OB US FOLLOW-UP All 2023-03-09 00:00 OB US FOLLOW-UP All 2023-03-09 00:00 PROFILE All 2023-03-09 00:00 PROFILE All 2023-03-09 00:00 PROFILE All 2023-03-09 00:00 PROFILE All 2023-03-09 00:00 PROFILE All 2023-03-09 00:00 PROFILE All 2023-03-09 00:00 PROFILE All 2023-03-09 00:00 PROFILE All 2023-03-09 00:00 PROFILE All 2023-03-09 00:00 A1C All 2023-03-09 00:00 A1C All 2023-03-09 00:00 A1C All 2023-03-09 00:00 A1C All 2023-03-09 00:00 A1C All 2023-03-09 00:00 A1C All 2023-03-09 00:00 A1C All 2023-03-09 00:00 A1C All 2023-03-09 00:00 A1C All 2023-05-07 00:00 GBSPCR,REFLEX IF PEN ALLERGIC A ll 2023-05-07 00:00 GBSPCR,REFLEX IF PEN ALLERGIC A ll 2023-05-07 00:00 GBSPCR,REFLEX IF PEN ALLERGIC A ll 2023-05-07 00:00 GBSPCR,REFLEX IF PEN ALLERGIC A ll 2023-03-09 00:00 First Ix admin via I D IM or jet injects with counseling by physician for adult All 2023-03-09 00:00 First Ix admin via I D IM or jet injects with counseling by physician for adult All 2023-03-09 00:00 First Ix admin via I D IM or jet injects with counseling by physician for adult All 2023-03-09 00:00 First Ix admin via I D IM or jet injects with counseling by physician for adult All 2023-03-09 00:00 First Ix admin via I D IM or jet injects with counseling by physician for adult All 2023-03-09 00:00 First Ix admin via I D IM or jet injects with counseling by physician for adult All 2023-03-09 00:00 First Ix admin via I D IM or jet injects with counseling by physician for adult All 2023-03-09 00:00 First Ix admin via I D IM or jet injects with counseling by physician for adult All 2023-03-09 00:00 First Ix admin via I D IM or jet injects with counseling by physician for adult All 2023-03-09 00:00 Boostrix Intramuscular Suspensi on 5-2.5-18.5 All 2023-03-09 00:00 Boostrix Intramuscular Suspensi on 5-2.5-18.5 All 2023-03-09 00:00 Boostrix Intramuscular Suspensi on 5-2.5-18.5 All 2023-03-09 00:00 Boostrix Intramuscular Suspensi on 5-2.5-18.5 All 2023-03-09 00:00 Boostrix Intramuscular Suspensi on 5-2.5-18.5 All 2023-03-09 00:00 Boostrix Intramuscular Suspensi on 5-2.5-18.5 All 2023-03-09 00:00 Boostrix Intramuscular Suspensi on 5-2.5-18.5 All 2023-03-09 00:00 Boostrix Intramuscular Suspensi on 5-2.5-18.5 All 2023-03-09 00:00 Boostrix Intramuscular Suspensi on 5-2.5-18.5 All 2023-03-09 00:00 CHLAM, NEISSERIA, TRICH DNA All 2023-03-09 00:00 CHLAM, NEISSERIA, TRICH DNA All 2023-03-09 00:00 CHLAM, NEISSERIA, TRICH DNA All 2023-03-09 00:00 CHLAM, NEISSERIA, TRICH DNA All 2023-03-09 00:00 CHLAM, NEISSERIA, TRICH DNA All 2023-03-09 00:00 CHLAM, NEISSERIA, TRICH DNA All 2023-03-09 00:00 CHLAM, NEISSERIA, TRICH DNA All 2023-03-09 00:00 CHLAM, NEISSERIA, TRICH DNA All 2023-03-09 00:00 CHLAM, NEISSERIA, TRICH DNA All 2023-04-03 00:00 CHLAM, NEISSERIA, TRICH DNA All 2023-04-03 00:00 CHLAM, NEISSERIA, TRICH DNA All 2023-04-03 00:00 CHLAM, NEISSERIA, TRICH DNA All 2023-04-03 00:00 CHLAM, NEISSERIA, TRICH DNA All 2023-04-03 00:00 CHLAM, NEISSERIA, TRICH DNA All 2023-04-03 00:00 CHLAM, NEISSERIA, TRICH DNA All 2023-04-03 00:00 CHLAM, NEISSERIA, TRICH DNA All 2023-04-03 00:00 BACTERIAL VAGINOSIS/VAGINITIS A 2023-04-03 00:00 BACTERIAL VAGINOSIS/VAGINITIS A 2023-04-03 00:00 BACTERIAL VAGINOSIS/VAGINITIS A 2023-04-03 00:00 BACTERIAL VAGINOSIS/VAGINITIS A 2023-04-03 00:00 BACTERIAL VAGINOSIS/VAGINITIS A 2023-04-03 00:00 BACTERIAL VAGINOSIS/VAGINITIS A 2023-04-03 00:00 BACTERIAL VAGINOSIS/VAGINITIS A Results/Labs test date facility value unit notes Social History date description facility 2023-03-09 00:00 Never smoker All 2023-03-09 00:00 Never smoker All 2023-03-09 00:00 Never smoker All 2023-03-09 00:00 Never smoker All 2023-03-09 00:00 Never smoker All 2023-03-09 00:00 Never smoker All 2023-03-09 00:00 Never smoker All 2023-03-09 00:00 Never smoker All 2023-03-29 00:00 Unknown if ever smoked [facility] 2023-04-05 00:00 Unknown if ever smoked [facility] Vital Signs date measurement value units 2023-03-09 00:00 BMI 42.16 kg/m2 2023-03-09 00:00 BP_diastolic 78 mmHg 2023-03-09 00:00 BP_systolic 116 mmHg 2023-03-09 00:00 heart_rate 135 /min 2023-03-09 00:00 height_metric 156.21 cm 2023-03-09 00:00 height_standard 61.5 in 2023-03-09 00:00 weight_metric 102.51 kg 2023-03-09 00:00 weight_standard 226 lb 2023-04-03 00:00 BMI 42.35 kg/m2 2023-04-03 00:00 BP_diastolic 68 mmHg 2023-04-03 00:00 BP_systolic 118 mmHg 2023-04-03 00:00 heart_rate 72 /min 2023-04-03 00:00 height_metric 156.21 cm 2023-04-03 00:00 height_standard 61.5 in 2023-04-03 00:00 weight_metric 102.97 kg 2023-04-03 00:00 weight_standard 227 lb 2023-04-06 00:00 BMI 42.16 kg/m2 2023-04-06 00:00 BP_diastolic 60 mmHg 2023-04-06 00:00 BP_systolic 100 mmHg 2023-04-06 00:00 heart_rate 120 /min 2023-04-06 00:00 height_metric 156.21 cm 2023-04-06 00:00 height_standard 61.5 in 2023-04-06 00:00 weight_metric 102.51 kg 2023-04-06 00:00 weight_standard 226 lb 2023-04-13 00:00 BMI 42.54 kg/m2 2023-04-13 00:00 BP_diastolic 71 mmHg 2023-04-13 00:00 BP_systolic 118 mmHg 2023-04-13 00:00 height_metric 156.21 cm 2023-04-13 00:00 height_standard 61.5 in 2023-04-13 00:00 weight_metric 103.42 kg 2023-04-13 00:00 weight_standard 228 lb 2023-05-07 00:00 BMI 42.16 kg/m2 2023-05-07 00:00 BP_diastolic 80 mmHg 2023-05-07 00:00 BP_systolic 122 mmHg 2023-05-07 00:00 height_metric 156.21 cm 2023-05-07 00:00 height_standard 61.5 in 2023-05-07 00:00 weight_metric 102.51 kg 2023-05-07 00:00 weight_standard 226 lb 2023-05-18 00:00 BMI 42.16 kg/m2 2023-05-18 00:00 BP_diastolic 82 mmHg 2023-05-18 00:00 BP_systolic 140 mmHg 2023-05-18 00:00 height_metric 156.21 cm 2023-05-18 00:00 height_standard 61.5 in 2023-05-18 00:00 weight_metric 102.51 kg 2023-05-18 00:00 weight_standard 226 lb
[2023-05-23] MEDS: DEXTROSE 5% 1,000 ML IV SCH (09:38)
--- NOTE | 2023-05-23 10:43 | PROVIDER PROGRESS NOTE ---
Labor Progress Note - Uterine Monitoring Uterine Monitoring Mode: positive: External toco Contraction Frequency (min/apart): 5 Contraction Intensity: positive: Moderate Uterine Resting Tone: positive: Soft - Monitoring Monitor Mode: positive: External ultrasound Heart Rate Variability: positive: Moderate (6-25 bmp) Accelerations: positive: Present, 15x15 Decelerations: positive: None - Vaginal Exam Dilation (in cm): 4 Effacement (%): 50 Station: -3 - Labor Progress Note Labor Progress Note/Additional Text: insulin pump at 1.5 Patient progressing without augmentation station is still high.
--- NOTE | 2023-05-23 11:57 | ANESTHESIA ---
Pre-Anesthesia VS, & Labs - Diagnosis labor - Procedure labor epidural Vital Signs: Temp Pulse Resp BP Pulse Ox O2 Flow Rate 36.8 C 81 16 131/83 H 98 05/23/23 10:02 05/23/23 10:02 05/23/23 10:02 05/23/23 10:02 05/23/23 06:39 Height: 5 ft 1 in Weight (kg): 102.965 kg Body Mass Index: 42.9 BMI Classification: Morbidly Obese - NPO Other - Is Patient ?: Yes - Lab Results Current Lab Results: Laboratory Tests 05/23/23 11:45: POC Whole Bld Glucose 103 H 05/23/23 10:25: POC Whole Bld Glucose 135 H 05/23/23 09:20: POC Whole Bld Glucose 106 H 05/23/23 08:00: Sodium 135, Potassium 3.7, Chloride 107, Carbon Dioxide 18 L, Anion Gap 10.0, BUN 8, Creatinine 0.4 L, Estimated GFR (MDRD) 190, Glucose 106 H , Calcium 8.8, Total Bilirubin 0.3, AST 10, ALT 7 L, Alkaline Phosphatase 137 H, Total Protein 6.5, Albumin 3.2, Globulin 3.3, Albumin/Globulin Ratio 1.0 05/23/23 08:00: WBC 7.9, RBC 4.20, Hgb 12.8, Hct 39.0, MCV 92.9, MCH 30.5, MCHC 32.8, RDW 14.4, Plt Count 218, MPV 10.6, Neut # (Auto) 5.5, Lymph # (Auto) 1.6, Otero # (Auto) 0.6, Eos # (Auto) 0.1, Baso # (Auto) 0.0, Absolute Nucleated RBC 0.00, Nucleated RBC % 0.0 05/23/23 08:00: Blood Type A POSITIVE, Antibody Screen NEGATIVE 05/23/23 08:00: TSH 2.97 05/23/23 07:05: POC Whole Bld Glucose 109 H Lab results reviewed: Yes Fish Bones: 05/23/23 08:00 05/23/23 08:00 Home Medications and Allergies Active Medications Carboprost Tromethamine (Carboprost Tromethamine 250 Mcg/Ml Amp) 250 mcg IM .ONCE PRN PRN Reason: Hemorrhage Fentanyl (Fentanyl 100 Mcg/2 Ml Vial) 50 mcg IVP Q1H PRN PRN Reason: Severe Pain (score 7-10) Glucose (Dextrose 40% Gel 37.5 Gm Tube) 37.5 gm PO Q1HR PRN PRN Reason: HYOGLYCEMIA Glucose (Dextrose 40% Gel 37.5 Gm Tube) 75 gm PO Q1HR PRN PRN Reason: HYPOGLYCEMIA Hydralazine HCl (Hydralazine Inj 20 Mg/Ml Vial) 5 - 10 mg IVP Q20M PRN; Protocol PRN Reason: SBP> or= 160 OR DBP> or= 110 Hydralazine HCl (Hydralazine Inj 20 Mg/Ml Vial) 10 mg IVP .ONCE PRN; Protocol PRN Reason: SBP> or= 160 OR DBP> or= 110 Insulin Human Regular (Myxredlin 100 Unit/100 Ml Bag) 100 unit in 100 mls @ 1 mls/hr IV .Q72H RORY; Protocol Last Titration: 05/23/23 11:47 Dose: 0.5 unit/hr, 0.5 mls/hr Lactated Ringer's (Lr) 500 mls @ 999 mls/hr IV PRN PRN PRN Reason: Oxytocin/Sodium Chloride (Pitocin/Sodium Chloride) 500 mls @ 999 mls/hr IV PRN PRN; Protocol PRN Reason: POST- HEMORR PREVENTION Tranexamic Acid (Tranexamic 1,000 Mg/100ml-Nacl) 1,000 mg in 100 mls @ 600 mls/hr IV Q30M PRN PRN Reason: EBL >1200mL and within 3hr Dextrose (D5w) 1,000 mls @ 125 mls/hr IV .Q8H [facility] Last Infusion: 05/23/23 10:57 Dose: 125 mls/hr Labetalol HCl (Labetalol 20 Mg/4 Ml Syringe) 20 - 80 mg IVP Q10M PRN; Protocol PRN Reason: SBP> or= 160 OR DBP> or= 110 Labetalol HCl (Labetalol 20 Mg/4 Ml Syringe) 20 mg IVP .ONCE PRN; Protocol PRN Reason: SBP> or= 160 OR DBP> or= 110 Labetalol HCl (Labetalol 20 Mg/4 Ml Syringe) 20 - 40 mg IVP Q10M PRN; Protocol PRN Reason: SBP> or= 160 OR DBP> or= 110 Lidocaine HCl (Lidocaine 1% 20 Ml Mdv) 20 ml ID .ONCE PRN PRN Reason: PERINEAL REPAIR Stop: 05/26/23 08:44 Methylergonovine Maleate (Methylergonovine 0.2 Mg/Ml Vial) 0.2 mg IM .ONCE PRN PRN Reason: Hemorrhage Misoprostol (Misoprostol 200 Mcg Tablet) 600 mcg BC .ONCE PRN PRN Reason: Hemorrhage Misoprostol (Misoprostol 200 Mcg Tablet) 800 mcg OH .ONCE PRN PRN Reason: Hemorrhage Nifedipine (Nifedipine 10 Mg Capsule) 10 - 20 mg PO Q20M PRN; Protocol PRN Reason: SBP> or= 160 OR DBP> or= 110 Oxytocin (Oxytocin 10 Unit/Ml Vial) 10 unit IM .ONCE PRN PRN Reason: Step One if no IV access. Sodium Chloride (Sodium Chloride Flush 0.9% 10 Ml Syringe) 10 ml IVP PRN PRN PRN Reason: NEEDED PER PROVIDER ORDERS Sodium Chloride (Sodium Chloride Flush 0.9% 10 Ml Syringe) 10 ml IVP Q8H RORY Sertraline HCl [Zoloft] 150 mg PO DAILY 11/01/18 Levothyroxine Sodium [Synthroid] 50 mcg PO DAILY 12/25/19 SUMAtriptan succinate [Sumatriptan Succinate] 50 mg PO BID PRN MDD 2 12/25/19 Topiramate [Topamax] 100 mg PO DAILY 12/25/19 Dextroamphetamine/Amphetamine [Adderall 30 mg Tablet] 30 mg PO DAILY 03/30/21 Dicyclomine [Bentyl] 10 mg PO DAILY 03/30/21 Allergies/Adverse Reactions: Allergies Allergy/AdvReac Type Severity Reaction Status Date / Time ondansetron [From Zofran] Allergy Intermediate Emesis Verified 03/30/21 09:04 latex Allergy Unknown Verified 03/30/21 09:04 oxycodone [From Percocet] Allergy Emesis Verified 03/30/21 09:04 control pills Allergy Headache Uncoded 06/21/20 18:30 Anes History & Medical History - Anesthetic History Anesthesia Complications: reports: Slow wake-up Family history of Anesthesia Complications: Denies Family history of Malignant Hyperthermia: Denies - Medical History Cardiovascular: reports: None Pulmonary: reports: None Gastrointestinal: reports: GERD, Ulcers, Colon polyps Urinary: reports: None Neuro: reports: Migraines Musculoskeletal: reports: None Endocrine/Autoimmune: reports: HyPERthyroidism (pt reports hx of hyper that has resolved w this ) Skin: reports: None Smoking Status: Former smoker - Surgical History General: reports: Colonoscopy, EGD Gynecologic: reports: Breast reduction - Obstetrical History : 4 Parity: 1 Events: reports: Gestational diabetes Complications: reports: Gestational diabetes (patient was on metformin for most of , was recently started on insulin. First dose was last night.) Exam General: Alert, Oriented x3, Cooperative Dental: WNL Mouth Openin Fingerbreadth Neck Mobility: Normal Mallampati classification: II Thyromental Distance: 4-6 cm Respiratory: Lungs clear Cardiovascular: Regular rate Plan Anesthesia Type: General, Spinal, Epidural Consent for Procedure(s) Verified and Reviewed: Yes Code Status: Attempt Resuscitation ASA classification: 2-Mild systemic disease Is this case an emergency?: No
[2023-05-23] MEDS ORDERED: OXYTOCIN/SODIUM CHLORIDE 500 ML IV SCH (12:00)
--- NOTE | 2023-05-23 13:34 | PROVIDER PROGRESS NOTE ---
Labor Progress Note - Uterine Monitoring Uterine Monitoring Mode: positive: External toco Contraction Frequency (min/apart): 3 Contraction Intensity: positive: Strong Uterine Resting Tone: positive: Soft - Monitoring Monitor Mode: positive: External ultrasound Heart Rate Variability: positive: Moderate (6-25 bmp) Accelerations: positive: Present, 15x15 Decelerations: positive: None (pitocin at 4. patient requesting epidural. Will examine cervix after epidural placement) Strip Review: positive: Category I
[2023-05-23] MEDS ORDERED: ROPIVACAINE 0.2% 200 MG/100 ML BAG EP ONE (13:45)
--- NOTE | 2023-05-23 14:27 | PROVIDER PROGRESS NOTE ---
Labor Progress Note - Uterine Monitoring Uterine Monitoring Mode: positive: External toco Contraction Intensity: positive: Strong - Monitoring Heart Rate Variability: positive: Moderate (6-25 bmp) Accelerations: positive: Present, 15x15 Decelerations: positive: None - Vaginal Exam Dilation (in cm): 4 Effacement (%): 50 - Labor Progress Note Labor Progress Note/Additional Text: discussed primary section if no descent on next exam due to concern for size. Risks, benefits, and alternatives discussed. All questions answered.
[2023-05-23] MEDS ORDERED: PROMETHAZINE INJ 25 MG in SODIUM CHLORIDE 0.9% 50 ML IV PRN (15:18)
[2023-05-23] MEDS ORDERED: ePHEDrine 50 MG/ML VIAL IVP PRN ×2 (15:29→18:36)
[2023-05-23] MEDS ORDERED: diphenhydrAMINE INJ 50 MG/ML VIAL IVP PRN (15:29)
[2023-05-23] MEDS ORDERED: NALOXONE 0.4 MG/ML VIAL IVP PRN ×2 (15:29→18:36)
[2023-05-23] MEDS ORDERED: ROPIVACAINE 0.2% 200 MG/100 ML BAG EP PRN (15:29)
[2023-05-23] MEDS ORDERED: ONDANSETRON 4 MG/2 ML VIAL IVP PRN (15:29)
[2023-05-23] MEDS ORDERED: METOCLOPRAMIDE 10 MG/2 ML VIAL IVP PRN (15:29)
[2023-05-23] MEDS ORDERED: NALBUPHINE 10 MG/ML AMP IVP PRN (15:29)
--- NOTE | 2023-05-23 16:09 | PROVIDER PROGRESS NOTE ---
Labor Progress Note - Uterine Monitoring Uterine Monitoring Mode: positive: External toco Contraction Frequency (min/apart): 3 Contraction Intensity: positive: Strong Uterine Resting Tone: positive: Soft - Monitoring Heart Rate Variability: positive: Moderate (6-25 bmp) Accelerations: positive: Present, 10x10 (=/32 wks) Strip Review: positive: Category I - Vaginal Exam Dilation (in cm): 4 Effacement (%): 50 Station: -3 - Labor Progress Note Labor Progress Note/Additional Text: No descent. Discussed concern for weight >4500g. Decision made to proceed with primary section. Risks, benefits, and alternatives discussed at length, all questions answered. Informed consent signed.
[2023-05-23] MEDS ORDERED: LIDOCAINE MPF 2%-EPI 1:200000 20 ML VIAL ONE (16:45)
[2023-05-23] MEDS: LACTATED RINGERS 1,000 ML IV PRN ×2 (16:45→17:16)
[2023-05-23] MEDS ORDERED: PHENYLEPHRINE 10 MG/ML VIAL ONE (16:49)
[2023-05-23] MEDS ORDERED: ePHEDrine 50 MG/ML VIAL IVP ONE (16:49)
[2023-05-23] MEDS ORDERED: AZITHROMYCIN INJ 500 MG in SODIUM CHLORIDE 0.9% 250 ML IV ONE (17:00)
[2023-05-23] MEDS ORDERED: LACTATED RINGERS 1,000 ML IV SCH ×2 (17:00→19:00)
[2023-05-23] MEDS ORDERED: CARBOPROST TROMETHAMINE 250 MCG/ML AMP IM ONE (17:18)
[2023-05-23] MEDS ORDERED: METHYLERGONOVINE 0.2 MG/ML VIAL ONE (17:18)
[2023-05-23] MEDS ORDERED: SODIUM CHLORIDE 0.9% 10 ML VIAL IVP ONE ×2 (17:46→17:50)
[2023-05-23] MEDS ORDERED: KETOROLAC 30 MG/ML VIAL ONE (17:47)
[2023-05-23] MEDS ORDERED: DEXAMETHASONE 4 MG/ML VIAL ONE (17:47)
[2023-05-23] MEDS ORDERED: ROPIVACAINE 0.5% PF 20 ML VIAL ONE (17:49)
[2023-05-23] MEDS ORDERED: ROPIVACAINE 0.2% PF 10 ML VIAL ONE (17:53)
[2023-05-23] MEDS ORDERED: SODIUM CHLORIDE FLUSH 0.9% 10 ML SYRINGE IVP PRN (18:01)
[2023-05-23] MEDS ORDERED: oxyCODONE 5 MG TABLET PO PRN (18:01)
--- NOTE | 2023-05-23 18:04 | DELIVERY NOTE ---
Delivery Note - Labor Labor: positive: Augmented by oxytocin - Delivery Method Delivery Method: positive: Primary - Presentation Presentation: positive: Vertex - Nuchal Cord Nuchal Cord: positive: None - Anesthetic Anesthetic Type: - Amniotic Fluid Description Amniotic Fluid Description: positive: Clear - Delivery Outcome Delivery Outcome: positive: Livebirth - [place] sex: positive: Female - Cord Cord: positive: 3 vessels - Placenta Placenta: positive: Intact - Estimated Blood Loss Estimated Blood Loss (in cc): 450 - Post Delivery Events Post Delivery Events: positive: No post delivery events
--- NOTE | 2023-05-23 18:09 | PROCEDURE REPORT ---
Hospitalist Procedure Note - Procedure Note Procedure Note: Preoperative Diagnosis: 1. Intrauterine at 38+4 2. labor 3. SROM 4. suspected macrosomia Postoperative Diagnosis: same Procedure: Primary Low Transverse Section Surgeon: Dr. Lee Home Appliance Washing Machine Mechanic: Lois Belle CNM Anesthesia: Spinal EBL: 450 mL Complications: none Specimens: none Findings: Normal uterus, fallopian tubes, and ovaries bilaterally Liveborn female, weight and apgars pending, clear amniotic fluid Indication She presented with SROM and in labor. Contractions spaced out and pitocin was started for augmentation. station never progressed past -3 station. Concern for size and cephalopelvic disproportion was discussed.The risks, benefits, and alternatives to delivery were discussed. Risks include but are not limited to: bleeding, infection, risk of anesthesia, and risk of injury to other organs/anatomy. The patient gave consent prior to the procedure. Procedure: The patient was taken to the OR where a final time out was performed per standard protocol. She was positioned on the table in the dorsal supine position with a left tilt. The abdomen was prepped and draped in the typical sterile fashion. Epidural anesthesia was found to be adequate. A Pfannensteil incision was made with the scalpel and carried down to the fascia. The fascia was incised in the midline and the incision extended bilaterally. The fascia was dissected off of the underlying rectus muscles superiorly and inferiorly. The rectus were and the peritoneum entered bluntly. The peritoneal incision was extended. The bladder blade was then placed. A transverse incision was made with the scalpel in the lower uterine segment and extended with traction in a cephalad-caudad direction. The infant was then atraumatically delivered from cephalic presentation. The was immediately vigorous. The 's nose and mouth were bulb suctioned. There was 1 minute of delayed cord clamping.The cord was doubly clamped and cut and the handed to pediatric staff. Cord blood was obtained. The placenta then delivered using intra abdominal fundal massage and gentle cord traction. The uterus was then exteriorized. The uterus was inspected and wiped of all debris. The edges of the uterine incision were identified. The uterus was closed in a running locked layer with 0-vicryl. Additional interrupted sutures of 2-0 Vicryl used for hemostasis. The incision was inspected and found to be hemostatic. The gutters were cleared of clots. The fascia and rectus were inspected and found to be hemostatic. The fascia was closed with a running 0-Vicryl. The subcutaneous tissues were irrigated and hemostasis obtained. The subcutaneous tissues were re-approximated with 2-0 vicryl. The skin was closed with subcutaneous suture with 3-0 monocryl. Metaplex dressing was placed. The patient tolerated the procedure well. All sponge, lap, needle, and instrument counts were correct times two. The patient was taken to the recovery room in stable condition. Patient received Ancef and Azithromycin for prophylaxis.
[2023-05-23] MEDS ORDERED: LACTATED RINGERS 1,000 ML IV ONE (18:27)
[2023-05-23] MEDS ORDERED: HYDROmorphone 0.5 MG/0.5 ML SYRINGE IVP PRN (18:36)
[2023-05-23] MEDS ORDERED: ATROPINE ABBOJECT 1 MG/10 ML SYRINGE IVP PRN (18:36)
[2023-05-23] MEDS ORDERED: MORPHINE 2 MG/ML CARPUJECT IVP PRN (18:36)
--- NOTE | 2023-05-23 18:40 | ANESTHESIA POST OP EVALUATION ---
Anesthesia Post Eval - Post Anesthesia Eval Vitals: Last Vital Signs Temp 36.2 C L 05/23/23 18:31 Pulse 84 05/23/23 18:31 Resp 16 05/23/23 18:31 BP 117/69 05/23/23 18:31 Pulse Ox 98 05/23/23 18:31 O2 Flow Rate CV Function Including HR & BP: Stable Pain Control: Satisfactory Nausea & Vomiting: Negative Mental Status: Baseline Respiratory Status: Airway Patent Hydration Status: Satisfactory Anesthesia Complications: None
[2023-05-23] MEDS: DOCUSATE SODIUM 100 MG CAPSULE PO SCH (20:34)
[2023-05-23] MEDS: ACETAMINOPHEN 500 MG TABLET PO SCH (20:34)
[2023-05-23] MEDS: KETOROLAC 30 MG/ML VIAL IVP SCH (23:49)
[2023-05-23] MEDS: SODIUM CHLORIDE FLUSH 0.9% 10 ML SYRINGE IVP PRN (23:50)
[2023-05-24] MEDS: ACETAMINOPHEN 500 MG TABLET PO SCH ×3 (04:15→21:00)
[2023-05-24 05:33] LABS: BASOPHILS % (AUTO) 0.2 %; HCT - HEMATOCRIT 36.7 % (37.0-47.0); HGB - HEMOGLOBIN 12.3 g/dL (12.0-16.0); LYMPHOCYTES # (AUTO) 1.1 10^3/uL (1.5-3.5); LYMPHOCYTES % (AUTO) 7.9 %; MEAN CORPUSCULAR HEMOGLOBIN 31.1 pg (27.0-31.0); MEAN CORPUSCULAR HGB CONC 33.5 g/dL (32.0-36.0); MEAN CORPUSCULAR VOLUME 92.7 fL (81.0-99.0); MEAN PLATELET VOLUME 10.3 fL (7.9-10.8); MONOCYTES # (AUTO) 0.5 10^3/uL (0.0-1.0); MONOCYTES % (AUTO) 3.8 %; NEUTROPHILS # (AUTO) 11.8 10^3/uL (1.5-6.6); NEUTROPHILS % (AUTO) 87.6 %; PLT - PLATELET COUNT 251 10^3/uL (130-450); RED BLOOD COUNT 3.96 10^6/uL (4.20-5.40); RED CELL DISTRIBUTION WIDTH 14.3 % (12.0-15.0); WHITE BLOOD COUNT 13.5 x10^3/uL (4.8-10.8)
[2023-05-24] MEDS: KETOROLAC 30 MG/ML VIAL IVP SCH ×3 (05:50→12:48)
[2023-05-24] MEDS: SODIUM CHLORIDE FLUSH 0.9% 10 ML SYRINGE IVP PRN (05:50)
[2023-05-24] MEDS: DEXTROSE 5% 1,000 ML IV SCH ×4 (08:22→18:58)
[2023-05-24] MEDS: SODIUM CHLORIDE FLUSH 0.9% 10 ML SYRINGE IVP SCH ×7 (08:22→18:58)
[2023-05-24] MEDS: LACTATED RINGERS 1,000 ML IV SCH ×3 (08:23→17:17)
--- NOTE | 2023-05-24 10:12 | PROVIDER PROGRESS NOTE ---
Subjective - Prog Note Date Prog Note Date: 05/24/23 Prog Note Time: 10:11 - Subjective Subjective: Patient is postoperative day 1 status post primary low-transverse section. Patient is doing well this morning. She is ambulating, tolerating a r egular diet, spontaneously voiding, has had a bowel movement. She denies chest pain or shortness of breath. She is having pain with ambulation but overall pain is well controlled. Objective - Vital Signs/Intake & Output Reviewed Vital Signs: Yes Vital Signs: Vital Signs x48h Temp Pulse Resp BP 05/24/23 06:05 97.8 F 81 16 132/82 H Intake & Output: Intake & Output 05/21/23 05/22/23 05/23/23 05/24/23 23:59 23:59 23:59 23:59 Intake Total 2614.283 1000 Output Total 500 625 Balance 2114.283 375 - Objective General Appearance: positive: No acute distress Respiratory: positive: Breath sounds nml Cardiovascular: positive: Regular rate & rhythm Abdomen: positive: Non-tender (appropriately tender, firm fundus below the umbilicus, dressing in place.) Extremities: positive: Non-tender, No pedal edema - Lab Results Fish Bones: 05/24/23 04:38 05/23/23 08:00 Other Labs: Lab Results x24hrs 05/24/23 05/23/23 05/23/23 Range/Units 04:38 23:19 18:04 WBC 13.5 H (4.8-10.8) x10^3/uL RBC 3.96 L (4.20-5.40) 10^6/uL Hgb 12.3 (12.0-16.0) g/dL Hct 36.7 L (37.0-47.0) % MCV 92.7 (81.0-99.0) fL MCH 31.1 H (27.0-31.0) pg MCHC 33.5 (32.0-36.0) g/dL RDW 14.3 (12.0-15.0) % Plt Count 251 (130-450) 10^3/uL MPV 10.3 (7.9-10.8) fL Neut # (Auto) 11.8 H (1.5-6.6) 10^3/uL Lymph # (Auto) 1.1 L (1.5-3.5) 10^3/uL [place] # (Auto) 0.5 (0.0-1.0) 10^3/uL Eos # (Auto) 0.0 (0.0-0.7) 10^3/uL Baso # (Auto) 0.0 (0.0-0.1) 10^3/uL Absolute Nucleated RBC 0.00 x10^3/uL Nucleated RBC % 0.0 /100WBC POC Whole Bld Glucose 138 H 96 (70 - 100) mg/dL 05/23/23 05/23/23 05/23/23 Range/Units 15:12 14:09 12:49 WBC (4.8-10.8) x10^3/uL RBC (4.20-5.40) 10^6/uL Hgb (12.0-16.0) g/dL Hct (37.0-47.0) % MCV (81.0-99.0) fL MCH (27.0-31.0) pg MCHC (32.0-36.0) g/dL RDW (12.0-15.0) % Plt Count (130-450) 10^3/uL MPV (7.9-10.8) fL Neut # (Auto) (1.5-6.6) 10^3/uL Lymph # (Auto) (1.5-3.5) 10^3/uL [place] # (Auto) (0.0-1.0) 10^3/uL Eos # (Auto) (0.0-0.7) 10^3/uL Baso # (Auto) (0.0-0.1) 10^3/uL Absolute Nucleated RBC x10^3/uL Nucleated RBC % /100WBC POC Whole Bld Glucose 97 146 H 89 (70 - 100) mg/dL 05/23/23 05/23/23 Range/Units 11:45 10:25 WBC (4.8-10.8) x10^3/uL RBC (4.20-5.40) 10^6/uL Hgb (12.0-16.0) g/dL Hct (37.0-47.0) % MCV (81.0-99.0) fL MCH (27.0-31.0) pg MCHC (32.0-36.0) g/dL RDW (12.0-15.0) % Plt Count (130-450) 10^3/uL MPV (7.9-10.8) fL Neut # (Auto) (1.5-6.6) 10^3/uL Lymph # (Auto) (1.5-3.5) 10^3/uL [place] # (Auto) (0.0-1.0) 10^3/uL Eos # (Auto) (0.0-0.7) 10^3/uL Baso # (Auto) (0.0-0.1) 10^3/uL Absolute Nucleated RBC x10^3/uL Nucleated RBC % /100WBC POC Whole Bld Glucose 103 H 135 H (70 - 100) mg/dL
[2023-05-24] MEDS: DOCUSATE SODIUM 100 MG CAPSULE PO SCH ×2 (11:49→21:01)
[2023-05-24] MEDS: IBUPROFEN 600 MG TABLET PO SCH (18:57)
[2023-05-25] MEDS: IBUPROFEN 600 MG TABLET PO SCH ×4 (01:05→18:34)
[2023-05-25] MEDS: SODIUM CHLORIDE FLUSH 0.9% 10 ML SYRINGE IVP SCH (01:05)
[2023-05-25] MEDS: ACETAMINOPHEN 500 MG TABLET PO SCH ×3 (05:01→21:07)
[2023-05-25] MEDS: SIMETHICONE CHEW 80 MG TABLET PO PRN ×2 (06:03→18:38)
--- NOTE | 2023-05-25 09:24 | PROVIDER PROGRESS NOTE ---
Subjective - Prog Note Date Prog Note Date: 05/25/23 Prog Note Time: 10:34 - Subjective Subjective: Subjective Patient reports she is doing well. Lochia appropriate. Denies heavy bleeding. Ambulating. Pelvic and abdominal pain well-controlled. Tolerating oral intake. Diet: Regular. Voiding without difficulty. Passing flatus. Denies BM. Patient is bonding with baby in room Breast feeding going well. Denies feeling lightheaded, dizzy or excessively fatigued. Objective General: Alert, oriented, no apparent distress. Cardiovascular: Regular rate. Regular rhythm. Lungs: No increased work of breathing. Abdomen: Uterus firm. Below umbilicus. No guarding or rebound. Extremities: No pain on palpation. No cords palpated. Distal pulses intact. Incision: Bandage in place. Assessment and Plan day 2. -Routine care -Anticipate discharge tomorrow History of hypothyroidism -We will recheck thyroid in several weeks. Has been normal throughout History of depression -Continue to monitor for depression -Can restart sertraline if patient desires, but she stopped the beginning of and has been doing well. Objective - Vital Signs/Intake & Output Vital Signs: Vital Signs x48h Temp Pulse Resp BP Pulse Ox 05/25/23 05:05 98.1 F 85 16 109/70 99 Intake & Output: Intake & Output 05/22/23 05/23/23 05/24/23 05/25/23 23:59 23:59 23:59 23:59 Intake Total 2614.283 1840 540 Output Total 500 625 Balance 2114.283 1215 540 - Lab Results Fish Bones: 05/24/23 04:38 05/23/23 08:00
[2023-05-25] MEDS: DOCUSATE SODIUM 100 MG CAPSULE PO SCH ×2 (10:12→21:08)
[2023-05-25] MEDS ORDERED: CALCIUM CARBONATE CHEW 500 MG TABLET PO PRN (23:13)
[2023-05-26] MEDS: IBUPROFEN 600 MG TABLET PO SCH ×3 (00:36→12:46)
[2023-05-26] MEDS: SIMETHICONE CHEW 80 MG TABLET PO PRN (00:36)
[2023-05-26] MEDS: ACETAMINOPHEN 500 MG TABLET PO SCH ×2 (05:04→12:46)
[2023-05-26 05:15] VITALS: O2SAT 99
[2023-05-26 09:37] VITALS: BP 138/71
--- NOTE | 2023-05-26 09:43 | Discharge Plan ---
Discharge Plan Problem Reviewed?: Yes Disposition: Home, Self Care Condition: Good Prescriptions: Acetaminophen [Acetaminophen Extra Strength] 1,000 mg PO Q8H PRN #60 tablet PRN Reason: Pain Docusate Sodium 100Mg Capsule [Colace 100Mg Capsule] 100 - 200 mg PO BID PRN #60 cap PRN Reason: Constipation Ibuprofen [Motrin] 600 mg PO Q6H PRN #30 tab PRN Reason: Pain oxyCODONE [Roxicodone] 5 mg PO Q4H PRN #14 tablet PRN Reason: Severe Pain oxyCODONE [Roxicodone] 5 mg PO Q4H PRN #14 tablet PRN Reason: Severe Pain Diet: Regular Activity Restrictions: Additional Comments Shower Restrictions: No Instruction Topics: C Section Dc, Depression No Smoking: If you smoke, Please STOP! Call for help. Follow-up with: Misti Miner ARNP [Provider Admit Priv/Credential] -
--- NOTE | 2023-05-26 09:46 | DISCHARGE SUMMARY ---
Discharge Summary Admit Date: 05/23/23 Discharge Date: 05/26/23 Discharging Provider: Woody Plummer MD Code Status: Attempt Resuscitation Condition at Discharge: Good Discharge Disposition: 01 Home, Self Care - DIAGNOSES Admission Diagnoses: 39 weeks gestation Gestational diabetes Obesity Discharge Diagnoses with Status of Each Condition: 39 weeks gestation Gestational diabetes Obesity Status post primary low-transverse section Delivery of live akhtar - HPI History of Present Illness: Subjective Patient reports she is doing well. Lochia appropriate. Denies heavy bleeding. Ambulating. Pelvic and abdominal pain well-controlled. Tolerating oral intake. Diet: Regular. Voiding without difficulty. Passing flatus. Denies BM. Patient is bonding with baby in room Breast feeding going well. Denies feeling lightheaded, dizzy or excessively fatigued. Objective General: Alert, oriented, no apparent distress. Cardiovascular: Regular rate. Regular rhythm. Lungs: No increased work of breathing. Abdomen: Uterus firm. Below umbilicus. No guarding or rebound. Extremities: No pain on palpation. No cords palpated. Distal pulses intact. Incision: Clean, dry, and intact. - HOSPITAL COURSE Hospital Course: Patient was admitted at 39 weeks gestation for term labor. She had spontaneous rupture of membranes at around 4 cm, so was augmented oxytocin. She did not progress past 4 cm and underwent a primary low-transverse section. course was uneventful. She was ready for discharge on postop day 3. She was advised on wound coming this and will keep the area clean and dry. We will elevate the skin fold to help prevent infection. Discussed depression. We will follow-up in clinic next week - ALLERGIES Allergies/Adverse Reactions: Allergies Allergy/AdvReac Type Severity Reaction Status Date / Time measles, mumps, and rubella Allergy Severe Anaphylaxis Verified 05/24/23 11:52 vaccine latex Allergy Unknown Verified 03/30/21 09:04 ethinyl estradiol AdvReac Severe Headache Verified 05/24/23 10:00 ondansetron [From Zofran] AdvReac Intermediate Emesis Verified 05/24/23 09:59 oxycodone [From Percocet] AdvReac Intermediate Emesis Verified 05/24/23 10:08 - MEDICATIONS Home Medications: Ambulatory Orders Medication Instructions Recorded Confirmed SUMAtriptan succinate [Sumatriptan 50 mg PO BID PRN MDD 2 12/25/19 03/30/21 Succinate] Topiramate [Topamax] 100 mg PO DAILY 12/25/19 03/30/21 Dicyclomine [Bentyl] 10 mg PO DAILY 03/30/21 03/30/21 Acetaminophen [Acetaminophen Extra 1,000 mg PO Q8H PRN #60 tablet 05/25/23 Strength] Docusate Sodium 100Mg Capsule 100 - 200 mg PO BID PRN #60 cap 05/25/23 [Colace 100Mg Capsule] Ibuprofen [Motrin] 600 mg PO Q6H PRN #30 tab 05/25/23 oxyCODONE [Roxicodone] 5 mg PO Q4H PRN #14 tablet 05/25/23 oxyCODONE [Roxicodone] 5 mg PO Q4H PRN #14 tablet 05/26/23 - LABS Result Diagrams: 05/24/23 04:38 05/23/23 08:00 - FOLLOW UP [facility] TIME SPENT Time Spent in Discharge (Minutes): 20
[2023-05-26] MEDS: DOCUSATE SODIUM 100 MG CAPSULE PO SCH (12:46)
--- NOTE | 2023-05-26 15:05 | Labor Flowsheet ---
Labor Flowsheet Datetime Report Generated by CPN: 05/26/2023 15:04 Datetime: 05/23/2023 16:57 UTERINE ACTIVITY Monitor Mode: External Frequency (min): 2-3 Quality: Strong Duration (sec): 60-80 Pattern: Normal: <= 5 Contractions in 10 Minutes Resting Tone (Palpate): Relaxed Monitor Interventions for FHR: Ultrasound Adjusted Variability: Moderate 6-25 bpm Accelerations: 15X15 Comments: FHR 140s with accels. unable to assess delceleration due to interuption of strip. Communication Comments: OR crew here Datetime: 05/23/2023 16:43 Temperature (C): 37.1 LaborFlag: Labor Datetime: 05/23/2023 16:15 ASSESSMENT A Monitor Mode: Telemetry FHR Baseline Rate : 130 Decelerations: None Category: Category I Patient Care Comments: stop d5 and insulin Datetime: 05/23/2023 16:01 VITAL SIGNS NBP Sys/Cecelia/Mean (mmHg): 111 : 79 : 87 Pulse: 103 Datetime: 05/23/2023 16:00 SpO2 (%): 100 FHR Baseline Changes: No Baseline Change MEDICATIONS Pitocin (milliunits): Discontinued PATIENT CARE Oxygen Method: Room Air Datetime: 05/23/2023 15:56 COMMUNICATION Communication: Provider at Bedside Provider Notified (Name): no change in cervix. will continue as scheduled at 1630 per OR availiabiltiy and Dr Baltes. Pt agrees. insulin and D5W dc. LR IV hanging per order Datetime: 05/23/2023 15:19 Insulin: Reg Insulin (ml/hr) @ 0.5 Medication Comments: BS 97 Datetime: 05/23/2023 15:09 Patient Position/Activity: Left Lateral Datetime: 05/23/2023 15:00 Monitor Interventions for UA: Sargent Adjusted Datetime: 05/23/2023 14:45 VAGINAL EXAM Dilatation (cm): 4.0 Effacement (%): 50 Station: -2 Exam by: Baltes Datetime: 05/23/2023 14:13 Bedside Blood Glucose: 146 Datetime: 05/23/2023 14:02 Epidural Procedure: Loading Dose Epidural Procedure Other: Pump Started Datetime: 05/23/2023 13:59 Anesthesia Comments: 2nd half of test Datetime: 05/23/2023 13:42 PROCEDURE TIME OUT Procedure Verify: Correct Patient Identity; Correct Side and Site are Marked; Accurate Procedure Co nsent Form; Agreement on Procedure to be Done; Correct Patient Position; Relevant Images and Results are Properly Labeled and Displayed; Addressed Need to Administer Antibiotics or Fluids for Irrigation ; Safety Precautions Based on Patient History or Medication Use ANESTHESIA Anesthesia Plans: Epidural Epidural Positioning: Sitting Datetime: 05/23/2023 13:32 PAIN Pain Scale: 8 Pain Coping: Requesting Pain Medication or Epidural Pain Assessment Comments: called for epidural Datetime: 05/23/2023 12:44 I/O Interventions: Up to BR Datetime: 05/23/2023 12:15 Pitocin Checklist: At Least 1 Acceleration of 15 bpm x 15 Seconds in 30 Minutes or Adequate Variabi lity; No More than 1 Late Deceleration Occurred in Past 30 Minutes; No More than 2 Variable Decelerat ions > 60 Seconds in Duration and decreasing >60 bpm in 30 minutes; No More than 5 Uterine Contractio ns in 10 Minutes for any 20 Minute Interval; Uterus Palpates Soft between Contractions Datetime: 05/23/2023 11:30 Actions for Decelerations: Other Datetime: 05/23/2023 10:35 Vaginal Bleeding: None Cervix, Consistency: Soft Cervix, Position: Anterior Datetime: 05/23/2023 10:00 Contraction Comments: 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 Datetime: 05/23/2023 07:30 Stage of : Labor Temperature Route: Oral
== END 2023-05-26 15:00 | disposition home or self-care (01) | DRG 788 ==
LOC: WFO 05:41 → FBP 06:31 → WFO 08:43 → FBP 08:44
PROVIDERS: ADMIT Obstetrics & Gynecology Obstetrics; ATTEND Obstetrics & Gynecology Obstetrics
PROC: 10D00Z1 Extraction of Products of Conception, Low, Open Approach (ICD-10-PCS; principal; 2023-05-23 16:00)
DX: O62.0 Primary inadequate contractions (principal); O99.214 Obesity complicating childbirth; O24.424 Gestational diabetes mellitus in childbirth, insulin controlled; Z37.0 Single live birth; Z3A.38 38 weeks gestation of pregnancy
CPT/HCPCS: 36415; 80053; 84112; 84443; 85025; 86850; 86900; 86901; 99215; A9270; J1815; J2210; J2795; J7040; J7120

== ENCOUNTER 2023-06-04 14:41 | Outpatient (CLI) | payer MEDICAID ==
[2023-06-04 15:05] LABS: HCT - HEMATOCRIT 42.6 % (37.0-47.0); HGB - HEMOGLOBIN 13.8 g/dL (12.0-16.0); MEAN CORPUSCULAR HEMOGLOBIN 30.3 pg (27.0-31.0); MEAN CORPUSCULAR HGB CONC 32.4 g/dL (32.0-36.0); MEAN CORPUSCULAR VOLUME 93.6 fL (81.0-99.0); MEAN PLATELET VOLUME 9.2 fL (7.9-10.8); RED BLOOD COUNT 4.55 10^6/uL (4.20-5.40); RED CELL DISTRIBUTION WIDTH 13.5 % (12.0-15.0); WHITE BLOOD COUNT 6.2 x10^3/uL (4.8-10.8)
[2023-06-04 15:38] LABS: THYROID STIMULATING HORMONE 1.05 uIU/mL (0.34-5.60)
[2023-06-04 15:57] LABS: ALBUMIN 3.8 g/dL (3.2-5.5); ALBUMIN/GLOBULIN RATIO 1.2 (1.0-2.2); BILIRUBIN,TOTAL 0.3 mg/dL (0.2-1.0); CALCIUM 9.5 mg/dL (8.5-10.3); CREATININE 0.5 mg/dL (0.6-1.3); POTASSIUM 3.7 mmol/L (3.5-4.5); TOTAL PROTEIN 7.1 g/dL (6.4-8.9)
[2023-06-06 16:08] LABS: ANTINUCLEAR ANTIBODIES IFA Negative (.)
== END 2023-06-04 14:42 | disposition home or self-care (01) ==
LOC: LAB 14:41
PROVIDERS: ATTEND Nurse Practitioner
DX: R25.1 Tremor, unspecified (principal)
CPT/HCPCS: 36415; 80053; 84443; 85027; 86038

== ENCOUNTER 2023-10-20 14:24 | Emergency (ER) | payer MEDICAID ==
[2023-10-20 15:23] VITALS: BP 117/78; O2SAT 97
--- NOTE | 2023-10-20 15:23 | ED Physician Documentation ---
PD HPI HEAD INJURY - Stated complaint Stated Complaint: HEAD PX,DIZZINESS - Chief complaint Chief Complaint: Trauma Hd/Nk - History obtained from History obtained from: Patient - History of Present Illness Mechanism of head injury: Fell Where head injury occurred: Home Pain level max: 7 Pain level now: 3 Location of injury: Back Quality of pain: Throbbing, Aching Associated symptoms: Nausea / vomiting (nausea, but no vomiting). No: LOC, Amnesia, Neck pain, Paresthesias, Seizures, Ear drainage, Nasal drainage Symptoms improve with: Rest Symptoms worsen with: Movement Contributing factors: No: Anticoagulated, Intoxicated Similar symptoms before: Has not had sx before Recently seen: Not recently seen - Additional information Additional information: 28-year-old female states that she was getting eggs out of her chicken coop, when she was exiting the chicken coop she slipped, fell backwards and struck her head on wood. No loss of consciousness. No vomiting. Does not take blood thinners. No seizure activity. Has felt "lightheaded and dizzy". She states she had difficulty walking at first as well. Currently has a mild headache. Review of Systems Constitutional: denies: Fever, Chills Respiratory: denies: Cough GI: denies: Vomiting, Diarrhea : denies: Now EGA Skin: denies: Rash Musculoskeletal: denies: Neck pain, Back pain, Joint swelling Neurologic: denies: Focal weakness, Numbness PD PAST MEDICAL HISTORY - Past Medical History Past Medical History: Yes Cardiovascular: None Respiratory: None Neuro: Migraines Endocrine/Autoimmune: HyPOthyroidism GI: Ulcers, Colon polyps : None HEENT: None Psych: Depression, Anxiety, Panic attacks Musculoskeletal: None Derm: None - Past Surgical History Past Surgical History: Yes 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, EGD /LATHE SANDER: Breast reduction - Present Medications Home Medications: Ambulatory Orders Medication Instructions Recorded Confirmed Escitalopram Oxalate 20 mg PO DAILY 10/20/23 10/20/23 Phentermine HCl 30 mg PO DAILY 10/20/23 10/20/23 hydrOXYzine pamoate [Hydroxyzine 25 mg PO TID PRN 10/20/23 10/20/23 Pamoate] metFORMIN [Glucophage] 500 mg PO DAILY 10/20/23 10/20/23 - Allergies Allergies/Adverse Reactions: Allergies Allergy/AdvReac Type Severity Reaction Status Date / Time measles, mumps, and rubella Allergy Severe Anaphylaxis Verified 10/20/23 14:33 vaccine latex Allergy Unknown Verified 10/20/23 14:33 ethinyl estradiol AdvReac Severe Headache Verified 10/20/23 14:33 ondansetron [From Zofran] AdvReac Intermediate Emesis Verified 10/20/23 14:33 oxycodone [From Percocet] AdvReac Intermediate Emesis Verified 10/20/23 14:33 - Social History Does the pt smoke?: No Smoking Status: Never smoker Does the pt drink ETOH?: Yes Does the pt have substance abuse?: Yes - Immunizations Immunizations are current?: Yes - POLST Patient has POLST: No PD ED PE NORMAL - Vitals Vital signs reviewed: Yes - General General: Alert and oriented X 3, No acute distress - HEENT HEENT: Atraumatic, PERRL, EOMI, Moist mucous membranes, Pharynx benign - Neck Neck: Supple, no meningeal sign, No bony TTP, C-Spine cleared by NEXUS criteria - Cardiac Cardiac: RRR - Respiratory Respiratory: No respiratory distress, Clear bilaterally - Abdomen Abdomen: Soft, Non tender, Non distended - Back Back: No spinal TTP - Derm Derm: Warm and dry - Extremities Extremities: No tenderness to palpate, Normal ROM s pain - Neuro Neuro: Alert and oriented X 3, yard worker 2-12 intact, No motor deficit, No sensory deficit, Normal speech Eye Opening: Spontaneous Motor: Obeys Commands Verbal: Oriented GCS Score: 15 - Psych Psych: Normal mood, Normal affect Results - Vitals Vitals: Vital Signs - 24 hr 10/20/23 10/20/23 14:33 15:17 Temperature 36.5 C Heart Rate 81 78 Respiratory 16 16 Rate Blood Pressure 114/76 117/78 O2 Saturation 99 97 Oxygen O2 Source Room air - Rads (name of study) head CT Relevant Findings:: Final report received, See rad report PD Medical Decision Making - ED course Complexity details: reviewed results, re-evaluated patient, considered differential, d/w patient ED course: 28-year-old female status post closed head injury. GCS 15, normal neuroexam here. However given her initial difficulty walking and continued headache, discussed risks and benefits of head CT, she elects to proceed with head CT. Head CT does not show any acute abnormalities. Patient continues to have a normal neuroexam. Head injury instructions given at bedside. Patient counseled regarding signs and symptoms for which I believe and urgent re-evaluation would be necessary. Patient with good understanding of and agreement to plan and is comfortable going home at this time This document was made in part using voice recognition software. While efforts are made to proofread this document, sound alike and grammatical errors may occur. Departure - Departure Disposition: 01 Home, Self Care Clinical Impression: Closed head injury Qualifiers: Encounter type: initial encounter Qualified Code(s): S09.90XA - Unspecified injury of head, initial encounter Condition: Good Instructions: ED Head Injury Closed Follow-Up: your,doctor as needed [Other] Comments: Your head CT does not show any acute abnormalities today. You can eat, drink and sleep normally. You can use Motrin and Tylenol for any headaches. Please return if you worsen including worsening headaches, seizures and vomiting. Forms: PCP List Discharge Date/Time: 10/20/23 16:32
--- NOTE | 2023-10-20 15:57 | CT Report ---
PROCEDURE: Head WO INDICATIONS: closed head injury, STILL TECHNIQUE: Noncontrast 4.5 mm thick angled axial sections acquired from the foramen magnum to the vertex. For r adiation dose reduction, the following was used: automated exposure control, adjustment of mA and/or kV according to patient size. COMPARISON: None. FINDINGS: Image quality: Excellent. CSF spaces: Basal cisterns are patent. No extra-axial fluid collections. Ventricles are normal in size and shape. Brain: No midline shift. No intracranial masses or hemorrhage. Barton-white matter interface is norm al. Skull and face: Calvarium and visualized facial bones are intact, without suspicious lesions. Sinuses: Visualized sinuses and mastoids are clear. IMPRESSION: No intracranial hemorrhage or fracture identified. Reviewed by: Rangel Velazquez MD on 10/20/2023 2:56 PM [place] Approved by: Rangel Velazquez MD on 10/20/2023 2:56 PM AKST Station ID: [id number]
== END 2023-10-20 16:32 | disposition home or self-care (01) ==
LOC: ED 14:24
DX: S09.90XA Unspecified injury of head, initial encounter (principal); W01.198A Fall on same level from slipping, tripping and stumbling with subsequent striking against other object, initial encounter; Y93.89 Activity, other specified; Y92.72 Chicken coop as the place of occurrence of the external cause
CPT/HCPCS: 99283; 99284

== ENCOUNTER 2023-10-31 11:37 | Outpatient (CLI) | payer MEDICAID ==
[2023-10-31 12:32] LABS: GTT GLUCOSE,FASTING 90 mg/dL (74-109)
== END 2023-10-31 11:38 | disposition home or self-care (01) ==
LOC: LAB 11:37
PROVIDERS: ATTEND Nurse Practitioner
DX: O24.419 Gestational diabetes mellitus in pregnancy, unspecified control (principal); O99.891 Other specified diseases and conditions complicating pregnancy; R94.6 Abnormal results of thyroid function studies
CPT/HCPCS: 36415; 82951; 84443

== ENCOUNTER 2023-11-02 09:12 | Outpatient (CLI) | payer MEDICAID ==
[2023-11-02 09:48] LABS: GTT GLUCOSE,FASTING 91 mg/dL (74-109)
== END 2023-11-02 09:13 | disposition home or self-care (01) ==
LOC: LAB 09:12
PROVIDERS: ATTEND Nurse Practitioner
DX: O24.419 Gestational diabetes mellitus in pregnancy, unspecified control (principal)
CPT/HCPCS: 36415; 82951

== ENCOUNTER 2024-02-21 08:45 | Emergency (ER) | payer MEDICAID ==
[2024-02-21 09:27] LABS: BASOPHILS % (AUTO) 0.3 %; EOSINOPHILS # (AUTO) 0.2 10^3/uL (0.0-0.7); EOSINOPHILS % (AUTO) 2.7 %; HCT - HEMATOCRIT 40.1 % (37.0-47.0); HGB - HEMOGLOBIN 13.4 g/dL (12.0-16.0); LYMPHOCYTES # (AUTO) 2.2 10^3/uL (1.5-3.5); MEAN CORPUSCULAR HEMOGLOBIN 30.8 pg (27.0-31.0); MEAN CORPUSCULAR HGB CONC 33.4 g/dL (32.0-36.0); MEAN CORPUSCULAR VOLUME 92.2 fL (81.0-99.0); MEAN PLATELET VOLUME 9.4 fL (7.9-10.8); MONOCYTES # (AUTO) 0.4 10^3/uL (0.0-1.0); MONOCYTES % (AUTO) 6.3 %; NEUTROPHILS # (AUTO) 3.4 10^3/uL (1.5-6.6); NEUTROPHILS % (AUTO) 54.4 %; PLT - PLATELET COUNT 266 10^3/uL (130-450); RED BLOOD COUNT 4.35 10^6/uL (4.20-5.40); RED CELL DISTRIBUTION WIDTH 13.6 % (12.0-15.0); WHITE BLOOD COUNT 6.2 x10^3/uL (4.8-10.8)
[2024-02-21 09:40] LABS: ALBUMIN 4.2 g/dL (3.2-5.5); ALBUMIN/GLOBULIN RATIO 1.4 (1.0-2.2); BILIRUBIN,TOTAL 0.4 mg/dL (0.2-1.0); CALCIUM 9.1 mg/dL (8.5-10.3); CREATININE 0.5 mg/dL (0.6-1.3); POTASSIUM 3.7 mmol/L (3.5-4.5); TOTAL PROTEIN 7.1 g/dL (6.4-8.9)
[2024-02-21 10:22] LABS: BILIRUBIN,URINE NEGATIVE (NEGATIVE); GLUCOSE, URINE (UA) NEGATIVE (NEGATIVE); KETONES,URINE (UA) NEGATIVE (NEGATIVE); LEUKOCYTE ESTERASE, URINE NEGATIVE (NEGATIVE); NITRITE,URINE NEGATIVE (NEGATIVE); OCCULT BLOOD,URINE TRACE-INTA (NEGATIVE); PROTEIN,URINE NEGATIVE (NEGATIVE); UROBILINOGEN,URINE 0.2 (NORMAL) E.U./dL (NORMAL)
[2024-02-21 10:25] LABS: HCG UR QUAL NEGATIVE
[2024-02-21 10:26] LABS: CLARITY,URINE CLEAR (CLEAR)
[2024-02-21] MEDS: ONDANSETRON 4 MG/2 ML VIAL IVP STA (10:36)
[2024-02-21] MEDS: SODIUM CHLORIDE 0.9% 1,000 ML IV STA (10:36)
--- NOTE | 2024-02-21 11:35 | ED Physician Documentation ---
History of Present Illness - Stated complaint Stated Complaint: N/V/D,DIZZINESS - Chief complaint Chief Complaint: Abd Pain - History obtained from History obtained from: Patient - Additonal information Additional information: The patient presents to the emergency department chief complaint of nausea vomiting and diarrhea that started about 5 days ago while the patient was in [place]. She states that the symptoms have persisted and that she is been unable to keep much down in the way of water and she is now beginning to feel weak and lightheaded and dehydrated. The patient states that nobody else in her group got sick. She denies any blood in her stools. She is having watery diarrhea several times a day. Her nausea fluctuates and sometimes she is able to drink but other times not. She tried to eat a little but has not had much appetite and it makes her nauseated. Other than cramping, no abdominal pain. No fevers or chills. 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: Breast reduction - Present Medications Home Medications: Ambulatory Orders Medication Instructions Recorded Confirmed Escitalopram Oxalate 20 mg PO DAILY 02/21/24 02/21/24 Spironolactone [Aldactone] 25 mg PO DAILY 02/21/24 02/21/24 buPROPion HCL [Bupropion Xl] 150 mg PO DAILY 02/21/24 02/21/24 lamoTRIgine [LaMICtal] 50 mg PO DAILY 02/21/24 02/21/24 - Allergies Allergies/Adverse Reactions: Allergies Allergy/AdvReac Type Severity Reaction Status Date / Time measles, mumps, and rubella Allergy Severe Anaphylaxis Verified 02/21/24 09:06 vaccine latex Allergy Unknown Verified 02/21/24 09:06 ethinyl estradiol AdvReac Severe Headache Verified 02/21/24 09:06 ondansetron [From Zofran] AdvReac Intermediate Emesis Verified 02/21/24 09:06 oxycodone [From Percocet] AdvReac Intermediate Emesis Verified 02/21/24 09:06 - Social History Does the pt smoke?: No Smoking Status: Never smoker Does the pt drink ETOH?: Yes Does the pt have substance abuse?: Yes - Immunizations Immunizations are current?: Yes - POLST Patient has POLST: No PD ED PE NORMAL - Vitals Vital signs reviewed: Yes - General General: Alert and oriented X 3, No acute distress, Well developed/nourished - HEENT HEENT: Atraumatic, EOMI, Moist mucous membranes - Neck Neck: Supple, no meningeal sign - Cardiac Cardiac: RRR, No murmur - Respiratory Respiratory: No respiratory distress, Clear bilaterally - Abdomen Abdomen: Soft, Non distended, Other (Mild diffuse tenderness, no rebound or guarding.) - Derm Derm: Normal color, Warm and dry, No rash - Extremities Extremities: No deformity, No edema - Neuro Neuro: Alert and oriented X 3 - Psych Psych: Normal mood, Normal affect Results - Vitals Vitals: Oxygen O2 Source Room air - Labs Labs: Microbiology 02/21/24 11:47 Salmonella/Shigella Screen - Final Stool Stool Culture Result 1 - Final Campylobacter Culture - Final Campylobacter Result 1 - Final Escherichia coli Shiga Toxins EIA - Final Laboratory Tests 02/21/24 02/21/24 02/21/24 09:23 09:23 10:14 WBC 6.2 RBC 4.35 Hgb 13.4 Hct 40.1 MCV 92.2 MCH 30.8 MCHC 33.4 RDW 13.6 Plt Count 266 MPV 9.4 Neut # (Auto) 3.4 Lymph # (Auto) 2.2 [place] # (Auto) 0.4 Eos # (Auto) 0.2 Baso # (Auto) 0.0 Absolute Nucleated RBC 0.00 Nucleated RBC % 0.0 Sodium 138 Potassium 3.7 Chloride 105 Carbon Dioxide 26 Anion Gap 7.0 BUN 9 Creatinine 0.5 L Estimated GFR (MDRD) 146 Glucose 105 H Calcium 9.1 Total Bilirubin 0.4 AST 14 ALT 20 Alkaline Phosphatase 80 Total Protein 7.1 Albumin 4.2 Globulin 2.9 Albumin/Globulin Ratio 1.4 Lipase 50 Urine Color YELLOW Urine Clarity CLEAR Urine pH 6.0 Ur Specific [place] 1.025 Urine Protein NEGATIVE Urine Glucose (UA) NEGATIVE Urine Ketones NEGATIVE Urine Occult Blood TRACE-INTA Urine Nitrite NEGATIVE Urine Bilirubin NEGATIVE Urine Urobilinogen 0.2 (NORMAL) Ur Leukocyte Esterase NEGATIVE Ur Microscopic Review NOT INDICATED Urine Culture Comments NOT INDICATED Urine HCG, Qual Stl C. diff Tox B Gene Stool Norovirus GI (PCR) Stool Norovirus GII (PCR) 02/21/24 02/21/24 02/21/24 10:14 11:47 11:47 WBC RBC Hgb Hct MCV MCH MCHC RDW Plt Count MPV Neut # (Auto) Lymph # (Auto) [place] # (Auto) Eos # (Auto) Baso # (Auto) Absolute Nucleated RBC Nucleated RBC % Sodium Potassium Chloride Carbon Dioxide Anion Gap BUN Creatinine Estimated GFR (MDRD) Glucose Calcium Total Bilirubin AST ALT Alkaline Phosphatase Total Protein Albumin Globulin Albumin/Globulin Ratio Lipase Urine Color Urine Clarity Urine pH Ur Specific [place] Urine Protein Urine Glucose (UA) Urine Ketones Urine Occult Blood Urine Nitrite Urine Bilirubin Urine Urobilinogen Ur Leukocyte Esterase Ur Microscopic Review Urine Culture Comments Urine HCG, Qual NEGATIVE Stl C. diff Tox B Gene NEGATIVE Stool Norovirus GI (PCR) Negative Stool Norovirus GII (PCR) Negative PD Medical Decision Making - ED course Complexity details: reviewed results, re-evaluated patient, considered differential, d/w patient ED course: The patient was treated symptomatically with IV fluids. She stated that she had allergies to antinausea medication and none of them really worked for her. She believes that Zofran makes her nausea worse and did not want to try this, either in the ED or at home. Her labs were unremarkable. She reported feeling better after fluids and was stable for discharge. We did send a stool sample that ultimately was negative for C. difficile toxin, norovirus, and E. coli, Campylobacter, Shigella, and Salmonella. The patient has been encouraged to follow-up with her primary doctor. We have discussed the usual indications for return. Departure - Departure Disposition: Home, Self Care Clinical Impression: Gastroenteritis Condition: Stable Instructions: ED Gastroenteritis Non Infec Comments: Your labs look good. Unfortunately, without a sample of your diarrhea, we have not been able to test for infection, but you most likely picked up something in [place]. In general, these illnesses do tend to blow over on their own, though they can cause some ongoing symptoms for a week or 2. You have declined nausea medicine in the emergency department today because you have not been able to tolerate previous doses. As such, for now we have just hydrated you well and hopefully this will help you to be able to tolerate more by mouth at home. Please follow-up with your primary doctor. If you are able to collect a sample of your diarrhea, you can ask your doctors office to send this to the lab for analysis. Forms: PCP List, Activity restrictions Discharge Date/Time: 02/21/24 11:54
[2024-02-21 12:05] VITALS: BP 137/95; O2SAT 100
[2024-02-25 11:49] LABS: NOROVIRUS GII Negative (Negative)
== END 2024-02-21 11:54 | disposition home or self-care (01) ==
LOC: ED 08:45
DX: K52.9 Noninfective gastroenteritis and colitis, unspecified (principal); Z32.02 Encounter for pregnancy test, result negative
CPT/HCPCS: 36415; 80053; 81001; 81003; 81025; 83690; 85025; 87045; 87046; 87086; 87427; 87493; 87798; 96360; 99283

== ENCOUNTER 2024-02-27 09:12 | Outpatient (CLI) | payer MEDICAID | END 2024-02-27 09:13 | disposition home or self-care (01) | LOC: LAB.R 09:12 | PROVIDERS: ATTEND Family Medicine | DX: R11.2 Nausea with vomiting, unspecified (principal); R19.7 Diarrhea, unspecified | CPT/HCPCS: 81599; 87045; 87046; 87177; 87209; 87427 ==

== ENCOUNTER 2024-04-21 20:47 | Outpatient (CLI) | payer BC, MEDICAID ==
--- NOTE | 2024-04-22 11:19 | Ultrasound Report ---
PROCEDURE: Pelvic Complete INDICATIONS: NEAR SYNCOPE TECHNIQUE: Real-time transabdominal scanning was performed of the pelvic organs, with image documentation. COMPARISON: 04/05/2016 FINDINGS: Uterus: Uterus is anteverted and normal in size at 9.4 x 3.4 x 5.8 cm. The myometrium is homogeneou s without dominant mass.. The endometrium measures 7.2 mm in combined thickness. There is an IUD in the fundal endometrium. Ovaries: The right ovary measures 4.0 x 2.5 x 4.4 cm, with a calculated ovarian volume of 22.6 cc. The left ovary measures 2.9 x 2.5 x 4.9 cm, with a calculated ovarian volume of 18.5 cc. The ovaries have a normal sonographic appearance. Number of follicles cannot be assessed with transabdominal im aging only. No adnexal masses are seen. No cystic lesions measuring greater than 3 cm. Other: No free pelvic fluid. IMPRESSION: Slightly enlarged ovaries bilaterally with normal transabdominal sonographic appearance. Further shirley acterization with endovaginal ultrasound could be performed if needed. IUD in place within the anteverted uterus. For further detail, endovaginal imaging or pelvic MRI coul d be considered if clinically indicated. Reviewed by: Jonelle Templeton MD on 04/22/2024 11:18 AM PDT Approved by: Jonelle Templeton MD on 04/22/2024 11:18 AM PDT Station ID: [id number]
== END 2024-04-21 20:48 | disposition home or self-care (01) ==
LOC: DI 20:47
PROVIDERS: ATTEND Nurse Practitioner
DX: N93.9 Abnormal uterine and vaginal bleeding, unspecified (principal); N85.4 Malposition of uterus; Z97.5 Presence of (intrauterine) contraceptive device

== ENCOUNTER 2024-05-23 08:00 | Outpatient (CLI) | payer BC, MEDICAID ==
[2024-05-23 11:27] LABS: INFLUENZA A- RESP PCR PANEL NOT DETECTED; INFLUENZA B - RESP PCR PANEL NOT DETECTED; RSV- RESP PCR PANEL NOT DETECTED; SARS-CoV-2 -RESP PCR PANEL NOT DETECTED
== END 2024-05-23 23:59 | disposition home or self-care (01) ==
LOC: LAB 08:00
PROVIDERS: ATTEND Physician Assistant
DX: J06.9 Acute upper respiratory infection, unspecified (principal)
CPT/HCPCS: 87637

== ENCOUNTER 2024-06-03 09:06 | Emergency (ER) | payer BC, MEDICAID ==
--- NOTE | 2024-06-03 09:25 | ED Physician Documentation ---
History of Present Illness - Stated complaint Stated Complaint: OVER HEATING, THROAT PX, STILL, DIZZY - History obtained from History obtained from: Patient - Additonal information Additional information: She has been sick for about 5 days with cough, productive of thick white mucus, some shortness of breath, fever up to 102 although that has abated a few days ago, sore throat with vocal changes and the most worrisome thing to her is that she feels hot and cold "like heatstroke." No possibility of . Multiple sick contacts both in the family and at work. 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 - Present Medications Home Medications: Ambulatory Orders Medication Instructions Recorded Confirmed Escitalopram Oxalate 20 mg PO DAILY 02/21/24 02/21/24 Spironolactone [Aldactone] 25 mg PO DAILY 02/21/24 02/21/24 buPROPion HCL [Bupropion Xl] 150 mg PO DAILY 02/21/24 02/21/24 lamoTRIgine [LaMICtal] 50 mg PO DAILY 02/21/24 02/21/24 - Allergies Allergies/Adverse Reactions: Allergies Allergy/AdvReac Type Severity Reaction Status Date / Time measles, mumps, and rubella Allergy Severe Anaphylaxis Verified 06/03/24 09:28 vaccine latex Allergy Unknown Verified 06/03/24 09:28 ethinyl estradiol AdvReac Severe Headache Verified 06/03/24 09:28 ondansetron [From Zofran] AdvReac Intermediate Emesis Verified 06/03/24 09:28 oxycodone [From Percocet] AdvReac Intermediate Emesis Verified 06/03/24 09:28 promethazine AdvReac Intermediate Emesis Verified 06/03/24 09:28 - Social History Does the pt smoke?: No Smoking Status: Never smoker Does the pt drink ETOH?: Yes Does the pt have substance abuse?: Yes - Immunizations Immunizations are current?: Yes - POLST Patient has POLST: No PD ED PE NORMAL - Vitals Vital signs reviewed: Yes - General General: Alert and oriented X 3, No acute distress, Other (Laryngitic voice) - HEENT HEENT: PERRL, EOMI, Other (Mild oropharyngeal redness without tonsillar exudates or swelling.) - Neck Neck: Supple, no meningeal sign, No adenopathy - Cardiac Cardiac: RRR, No murmur - Respiratory Respiratory: No respiratory distress, Other (Mild crackles left upper lobe) - Abdomen Abdomen: Non tender - Derm Derm: No rash - Neuro Neuro: Alert and oriented X 3 Results - Vitals Vitals: Vital Signs - 24 hr 06/03/24 06/03/24 09:22 10:58 Temperature 36.4 C L 36.1 C L Heart Rate 123 H 104 H Respiratory 18 18 Rate Blood Pressure 132/94 H 128/82 H O2 Saturation 98 97 Oxygen O2 Source Room air - Labs Labs: Laboratory Tests 06/03/24 06/03/24 09:38 09:38 Nasal Adenovirus (PCR) NOT DETECTED Nasal B. parapertussis DNA (PCR) NOT DETECTED Nasal Coronavir 229E PCR NOT DETECTED Nasal Coronavir HKU1 PCR NOT DETECTED Nasal Coronavir NL63 PCR DETECTED A Nasal Coronavir OC43 PCR NOT DETECTED Nasal Enterovir/Rhinovir PCR NOT DETECTED Nasal Influenza B PCR NOT DETECTED Nasal Influenza A PCR NOT DETECTED Nasal Parainfluen 1 PCR NOT DETECTED Nasal Parainfluen 2 PCR NOT DETECTED Nasal Parainfluen 3 PCR NOT DETECTED Nasal Parainfluen 4 PCR NOT DETECTED Nasal RSV (PCR) NOT DETECTED Nasal B.pertussis DNA PCR NOT DETECTED Nasal C.pneumoniae (PCR) NOT DETECTED [place] Human Metapneumo PCR NOT DETECTED Nasal M.pneumoniae (PCR) NOT DETECTED Nasal SARS-CoV-2 (PCR) NOT DETECTED Group A Strep Rapid Negative - Rads (name of study) 2 view chest x-ray is unremarkable Relevant Findings:: Final report received, EMP independent interpretation of test PD Medical Decision Making - ED course ED course: She presents with 5 days of URI symptoms and is positive for one of the non- COVID coronavirus's with negative strep testing and x-ray. She declined further needs other than a work note. Departure - Departure Disposition: 01 Home, Self Care Clinical Impression: Upper respiratory tract infection Qualifiers: URI type: unspecified viral URI Qualified Code(s): J06.9 - Acute upper respiratory infection, unspecified Condition: Good Record reviewed to determine appropriate education?: Yes Instructions: ED Viral Syndrome Comments: As discussed, you have the non-COVID coronavirus NL 63. Because this is a viral illness it does need to run its course. Strep testing and chest x-ray were negative/normal. Tylenol and/or ibuprofen as needed for aches and pains and for the hot and cold feeling. Return for new or worsening symptoms. Forms: Activity restrictions Discharge Date/Time: 06/03/24 10:58
[2024-06-03 09:55] LABS: RAPID STREP SCREEN Negative (Negative)
--- NOTE | 2024-06-03 10:00 | XRAY Report ---
PROCEDURE: Chest 2V INDICATIONS: cough TECHNIQUE: 2 views of the chest were acquired. COMPARISON: 12/22/2019. FINDINGS: Surgical changes and devices: None. Lungs and pleura: No pleural effusions or pneumothorax. Lungs are clear. Mediastinum: Mediastinal contours appear normal. Heart size is normal. Bones and chest wall: No suspicious bony lesions. Overlying soft tissues appear unremarkable. IMPRESSION: No acute cardiopulmonary process. Reviewed by: Jose Ray MD on 06/03/2024 9:59 AM PDT Approved by: Jose Ray MD on 06/03/2024 9:59 AM PDT Station ID: [id number]
[2024-06-03 10:37] LABS: B. PARAPERTUSSIS- RESP PCR PAN NOT DETECTED; B. PERTUSSIS- RESP PCR PANEL NOT DETECTED; C. PNEUMONIAE- RESP PCR PANEL NOT DETECTED; CORONAVIRUS 229E-RESP PCR NOT DETECTED; CORONAVIRUS HKU1-RESP PCR NOT DETECTED; CORONAVIRUS NL63-RESP PCR DETECTED; CORONAVIRUS OC43-RESP PCR NOT DETECTED; HUMAN METAPNEUMOVIRUS NOT DETECTED; INFLUENZA A- RESP PCR PANEL NOT DETECTED; INFLUENZA B - RESP PCR PANEL NOT DETECTED; M. PNEUMONIAE- RESP PCR PANEL NOT DETECTED; PARAINFLUENZA VIRUS 1 NOT DETECTED; PARAINFLUENZA VIRUS 2 NOT DETECTED; PARAINFLUENZA VIRUS 3 NOT DETECTED; PARAINFLUENZA VIRUS 4 NOT DETECTED; RHINOVIRUS/ENTEROVIRUS NOT DETECTED; RSV- RESP PCR PANEL NOT DETECTED; SARS-CoV-2 -RESP PCR PANEL NOT DETECTED
[2024-06-03 11:02] VITALS: BP 128/82; O2SAT 97
== END 2024-06-03 10:58 | disposition home or self-care (01) ==
LOC: ED 09:06
DX: J06.9 Acute upper respiratory infection, unspecified (principal)
CPT/HCPCS: 87070; 87430; 87633; 99283